=== PATIENT | female | born 1950 | race Caucasian/White ===

== ENCOUNTER → 2018-06-29 10:45 | Outpatient (CLI) | payer OTHER, SELFPAY ==
--- NOTE | 2018-06-29 | DI.MG.S_ITS ---
BILATERAL DIGITAL SCREENING MAMMOGRAM 3D/2D WITH CAD: 06/29/2018 CLINICAL: Routine screening. Comparison is made to exams dated: 07/09/2016 mammogram, 03/16/2014 mammogram, and 07/06/2012 mammogram - [facility]. There are scattered fibroglandular elements in both breasts. Current study was also evaluated with a Computer Aided Detection (CAD) system. No significant masses, calcifications, or other findings are seen in either breast. There has been no significant interval change. IMPRESSION: NEGATIVE There is no mammographic evidence of malignancy. A 1 year screening mammogram is recommended.(06/30/2019) This exam was interpreted at Station ID: [id number]. NOTE: For mammograms, a report in lay terms will be sent to the patient. Approximately 15% of breast malignancies will not be visualized mammographically. In the management of a palpable breast mass, a negative mammogram must not discourage biopsy of a clinically suspicious lesion. Electronically Signed By: Ryan king/nino:06/29/2018 15:54:14 letter sent: Normal Exam ACR BI-RADS Category 1: Negative 3341F
== END ==
PROVIDERS: PCP Family Medicine; Visit Provider Family Medicine
DX: Z12.31 Encounter for screening mammogram for malignant neoplasm of breast (principal)
CPT/HCPCS: 77063; 77067

== ENCOUNTER → 2019-07-01 12:52 | Outpatient (CLI) | payer OTHER, SELFPAY ==
--- NOTE | 2019-07-01 | DI.RAD.S_ITS ---
PROCEDURE: XR CHEST 2V INDICATIONS: COUGH TECHNIQUE: 2 views of the chest were acquired. COMPARISON: [facility], , XR CXR 2 VIEW, 10/18/2003, 8:06. FINDINGS: Surgical changes and devices: None. Lungs and pleura: Lungs are clear. No pleural effusions or pneumothorax. Mediastinum: Mediastinal contours are normal. Heart size is normal. Tortuous and mildly aneurysmal aorta measuring 3.2 cm in AP dimension. Bones and chest wall: No suspicious bony abnormalities. Soft tissues appear unremarkable. IMPRESSION: 1. No acute cardiopulmonary disease. 2. Tortuous aorta with mild aneurysm. Dictated by: Zachary Agarwal M.D. on 07/01/2019 at 17:56 Approved by: Zachary Agarwal M.D. on 07/01/2019 at 17:57
== END ==
PROVIDERS: PCP Family Medicine; Referring Provider Naturopath; Visit Provider Family Medicine
DX: R05 Cough (principal); I71.2 Thoracic aortic aneurysm, without rupture
CPT/HCPCS: 71046

== ENCOUNTER → 2020-02-08 07:59 | Outpatient (CLI) | payer OTHER, SELFPAY ==
[2020-02-08 09:00] LABS: Add Manual Diff / Slide Review NO; Basophils Absolute Auto 0 /uL (0-100); Basophils Percent Auto 0.3 % (0-2); Eosinophils Absolute Auto 100 /uL (0-450); Eosinophils Percent Auto 2.9 % (2-4); Hematocrit 35.2 % (36-46); Hemoglobin 12.4 g/dL (12.0-16.0); Lymphocytes Absolute Auto 1600 /uL (1100-4500); Lymphocytes Percent Auto 43.1 % (25-40); Mean Corpuscular HGB Conc 35.1 % (30-36); Mean Corpuscular Hemoglobin 37.6 PG (26-34); Mean Corpuscular Volume 107.2 fL (80-100); Monocytes Absolute Auto 200 /uL (0-900); Monocytes Percent Auto 6.1 % (3-14); Neutrophils Absolute Auto 1800 /uL (1500-7000); Neutrophils Percent Auto 47.6 % (50-75); Platelet Count 219 X10^3/uL (150-400); Red Blood Cell Count 3.29 X10^6/uL (4.0-5.2); White Blood Cell Count 3.8 X10^3/uL (4.5-11.0)
[2020-02-08 09:07] LABS: Hemoglobin A1C% w Est Avg Glu 5.1 % (4.0-6.0)
[2020-02-08 09:12] LABS: Alanine Aminotransferase 15 IU/L (<35); Albumin 4.2 g/dL (3.5-5.0); Albumin Globulin Ratio 1.6 (1.0-2.8); Alkaline Phosphatase 64 U/L (38-126); Aspartate Aminotransferase 25 IU/L (14-36); BUN Creatinine Ratio 19.7 (6-22); Bilirubin Total 0.9 mg/dL (0.2-1.3); Blood Urea Nitrogen 14 mg/dL (7-17); Calcium 8.9 mg/dL (8.4-10.2); Carbon Dioxide 25 mmol/L (22-32); Chloride 105 mmol/L (98-107); Cholesterol 202 mg/dL (140-199); Estimated Glomerular Filt Rate > 60.0 mL/min (>60); Globulin 2.7 g/dL (1.7-4.1); Glucose 89 mg/dL (80-110); HDL Cholesterol 56 mg/dL (40-60); HEMOLYSIS < 15 (0-50); LDL Cholesterol Calculated 132 mg/dL (<100); Potassium 3.8 mmol/L (3.4-5.1); Sodium 139 mmol/L (137-145); Total Protein 6.9 g/dL (6.3-8.2); Triglycerides 70 mg/dL (35-150); VLDL Cholesterol Calculated 14 mg/dL (2-30)
[2020-02-08 09:44] LABS: TSH w/ Reflex to FT4 2.79 uIU/mL (0.47-4.68)
== END ==
PROVIDERS: PCP Family Medicine; Referring Provider Ophthalmology; Visit Provider Ophthalmology
DX: Z13.1 Encounter for screening for diabetes mellitus (principal); Z13.29 Encounter for screening for other suspected endocrine disorder; E78.5 Hyperlipidemia, unspecified; I71.4 Abdominal aortic aneurysm, without rupture
CPT/HCPCS: 36415; 80053; 80061; 83036; 84443; 85025

== ENCOUNTER → 2020-10-19 14:31 | Outpatient (CLI) | payer OTHER, SELFPAY ==
--- NOTE | 2020-10-19 | DI.MG.S_ITS ---
BILATERAL DIGITAL SCREENING MAMMOGRAM 3D/2D WITH CAD: 10/19/2020 CLINICAL: Routine screening. Comparison is made to exams dated: 06/29/2018 mammogram, 07/09/2016 mammogram, and 03/16/2014 mammogram - [facility]. Current study was also evaluated with a Computer Aided Detection (CAD) system. There is a stable benign calcification in both breasts. No significant masses, calcifications, or other findings are seen in either breast. There has been no significant interval change. IMPRESSION: BENIGN There is no mammographic evidence of malignancy. A 1 year screening mammogram is recommended. This exam was interpreted at Station ID: [id number]. NOTE: For mammograms, a report in lay terms will be sent to the patient. Approximately 15% of breast malignancies will not be visualized mammographically. In the management of a palpable breast mass, a negative mammogram must not discourage biopsy of a clinically suspicious lesion. Electronically Signed By: Kareem Plaza acr/nino:10/19/2020 14:53:07 letter sent: Normal Exam ACR BI-RADS Category 2: Benign Finding(s) 3342F
== END ==
PROVIDERS: PCP Student in an Organized Health Care Education/Training Program; Referring Provider Student in an Organized Health Care Education/Training Program; Visit Provider Ophthalmology
DX: Z12.31 Encounter for screening mammogram for malignant neoplasm of breast (principal)
CPT/HCPCS: 77063; 77067

== ENCOUNTER 2021-11-28 00:46 | Emergency (ER) | payer MEDICARE, SELFPAY ==
--- NOTE | 2021-11-28 00:49 | ED_ITS ---
HPI - Chest Pain General Chief Complaint: Chest Pain Stated Complaint: CHEST PAIN AND PAIN IN BACK Time Seen by Provider: 11/28/21 00:48 History of Present Illness HPI narrative: 71F nonsmoker with noncontributory medical history presents with her in the chief complaint of chest and back pain over the past 2 days. She has never had any discomfort such as this and is quite concerning for her. She denies any obvious provocation. She denies associated symptoms such as dizziness, weakness or lightheadedness. She denies nausea, vomiting or unexplained diaphoresis. She states that she has been working excessively in the garden is been also undergoing vigorous physical therapy. She denies any obvious worsening with range of motion or palpation but does state that symptoms improved tremendously yesterday after applying a topical cream. Her symptoms flared up again this evening and she presents for evaluation Related Data Allergies Allergy/AdvReac Type Severity Reaction Status Date / Time Penicillins [PENICILLINS] Allergy Severe SOB Unverified 11/28/21 00:57 Review of Systems Review of Systems Narrative: GENERAL: Denies chills, fatigue, malaise, fever, sweats. HEENT: Denies sinus pain, ear pain, sore throat, difficulty swallowing, dizziness. RESPIRATORY: Denies dyspnea, cough, wheezing, hemoptysis, sputum. CARDIOVASCULAR: See HPI GASTROINTESTINAL: Denies nausea, vomiting, abdominal pain, diarrhea, constipation, melena. : Denies dysuria, frequency, incontinence, hematuria, urinary retention. MUSCULOSKELETAL:see HPI SKIN: Denies rash, skin lesions, or other NEUROLOGIC: Denies weakness, headache, numbness, change in speech, confusion, seizures, incoordination. PSYCHIATRIC: No concerning psychosocial issues. 12 point review of systems is negative except for those stated above Patient History Social History Smoking Status: Never smoker Exam Narrative Exam Narrative: GENERAL: [71 year old patient appears stated age. Well-developed patient, in mild distress. HEAD: Atraumatic. Normocephalic. EYES: Pupils equal round and reactive. Extraocular motions intact. No scleral icterus. No injection or drainage. ENT: Nose without bleeding, purulent drainage. Throat without erythema, tonsillar hypertrophy or exudate. Airway patent. NECK: Trachea midline. Non tender CARDIOVASCULAR: Regular rate and rhythm without murmurs, gallops, or rubs. RESPIRATORY: Clear to auscultation. Breath sounds equal bilaterally. No wheezes, rales, or rhonchi. GASTROINTESTINAL: Abdomen soft, non-tender, nondistended. EXTREMITIES: No edema or joint tenderness. BACK: Nontender without deformity or crepitance. No flank tenderness. NEURO: AOx3. SKIN: No rash or erythema of visible areas Initial Vital Signs Initial Vital Signs: Vital Signs Temperature 97 F L 11/28/21 00:54 Pulse Rate 95 H 11/28/21 00:54 Respiratory Rate 16 11/28/21 00:54 Blood Pressure 201/103 H 11/28/21 00:54 Pulse Oximetry 98 11/28/21 00:54 Course Course Course Narrative: Patient has chest and back pain and I have high suspicion of a musculoskeletal component, however it is not necessarily is reproducible on palpation as I might expect. After discussion with patient and her we agree on it advanced imaging in the form of a CT angiogram of chest abdomen and pelvis to evaluate for dissection, aneurysm and other. Orders Ordered: ED Orders 11/28/21 00:51 Complete Blood Count AUTO DIFF Stat Comprehensive Metabolic Panel Stat Lipase Stat Magnesium Stat Troponin & CK Cardiac Panel Stat 11/28/21 00:58 XR chest 1V Stat EKG-12 Lead Stat 11/28/21 01:29 CT angio chest abdomen pelvis Stat Reevaluation(s) Reevaluation #1: Patient does demonstrate significant improvement over the course of the visit without any aggressive interventions. Consultations Consultation #1: Upon receipt of imaging I discussed with on-call vascular surgery at [facility]. He has reviewed the patient's history, physical exam as well as labs and images himself. He states very firmly that any of the abnormal findings on the imaging are not the likely cause of the patient's symptoms and do not require any specific intervention. He does state that it would be reasonable to repeat vascular imaging in 1-2 years to track the progression of abnormal findings noted. Vital Signs Vital signs: Vital Signs - 8 hr 11/28/21 00:54 11/28/21 03:40 Temperature 97 F L Pulse Rate 95 H 72 Respiratory Rate 16 15 Blood Pressure 201/103 H 150/75 H Pulse Oximetry 98 97 MDM - Chest Pain Lab Data Result diagrams: 11/28/21 00:51 11/28/21 00:51 Labs: Lab Results 11/28/21 11/28/21 Range/Units 00:51 00:51 WBC 6.4 (4.5-11.0) X10^3/uL RBC 4.86 (4.0-5.2) X10^6/uL Hgb 14.2 (12.0-16.0) g/dL Hct 43.5 (36-46) % MCV 89.4 (80-100) fL MCH 29.2 (26-34) PG MCHC 32.6 (30-36) % RDW 13.0 (11.6-14.8) % Plt Count 268 (150-400) X10^3/uL Neut % (Auto) 47.9 L (50-75) % Lymph % (Auto) 42.2 H (25-40) % [place] % (Auto) 6.5 (3-14) % Eos % (Auto) 2.9 (2-4) % Baso % (Auto) 0.5 (0-2) % Neut # (Auto) 3100 (6046-6637) /uL Lymph # (Auto) 2700 (8395-7998) /uL [place] # (Auto) 400 (0-900) /uL Eos # (Auto) 200 (0-450) /uL Baso # (Auto) 0 (0-100) /uL Sodium 139 (137-145) mmol/L Potassium 3.8 (3.4-5.1) mmol/L Chloride 107 (98-107) mmol/L Carbon Dioxide 28 (22-32) mmol/L BUN 12 (7-17) mg/dL Creatinine 0.70 (0.52-1.04) mg/dL Estimated GFR > 60.0 (>60) mL/min BUN/Creatinine Ratio 17.1 (6-22) Glucose 119 H (80-110) mg/dL Calcium 9.4 (8.4-10.2) mg/dL Magnesium 2.1 (1.6-2.3) mg/dL Total Bilirubin 0.4 (0.2-1.3) mg/dL AST 25 (14-36) IU/L ALT 16 (<35) IU/L Alkaline Phosphatase 75 (38-126) U/L Total Creatine Kinase 167 H (30-135) U/L CK-MB (CK-2) 1.58 (<2.37) ng/mL CK-MB (CK-2) Rel Index 0.9 L (1.5-5.0) % Troponin I < 0.012 (0.01-0.034) ng/mL Total Protein 7.8 (6.3-8.2) g/dL Albumin 4.6 (3.5-5.0) g/dL Globulin 3.2 (1.7-4.1) g/dL Albumin/Globulin Ratio 1.4 (1.0-2.8) Lipase 175 (23-300) U/L Imaging Data CT scan - chest: Radiologist's Impression: [address] [address] [address] Scan Report Signed Patient: Kristel Suárez MR#: [id number] : 1950 Acct:[id number] Age/Sex: 71 / F Date of Service: 11/28/21 Loc: ED Accession Number: [id number] ?? Procedure: CT angio chest abdomen pelvis Ordering Provider: Terrance Joy D.O. PROCEDURE:? CT ANGIO CHEST ABDOMEN PELVIS ? INDICATIONS:? chest pain, back pain, hypertension ? TECHNIQUE:? Precontrast 5 mm thick sections acquired from the lung apices to the iliac crests.? After the administration of intravenous contrast, 2.5 mm thick sections again acquired from the lung apices to the iliac crests.? Maximum intensity projection (MIP) oblique sagittal and coronal reformats were then acquired.? For radiation dose reduction, the following was used:? automated exposure control.? ? COMPARISON:? None. ? FINDINGS:? Image quality:? Excellent.? ? VASCULATURE:? The heart is normal in size.? The main pulmonary trunk and right pulmonary artery normal in size.? The left pulmonary artery is enlarged, measuring 2.8 cm in diameter.? No filling defect is seen within the pulmonary vasculature.? The ascending thoracic aorta and proximal aortic arch are normal in size.? A conventional branching pattern of the arch vessels is noted.? 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 The diverticulum measures 13 x 13 x 16 mm.? The descending thoracic aorta is patent with mild atherosclerotic calcifications.? No aortic dissection or intramural hematoma.? No penetrating atherosclerotic ulcer. ? Mild calcified atherosclerosis is seen in the abdominal aorta.? No aortic aneurysm is seen.? The celiac trunk and superior mesenteric artery are patent.? Atherosclerotic calcifications are seen at the origins of the inferior mesenteric artery and bilateral renal arteries without significant stenosis seen.? An accessory right renal artery is noted.? A peripherally calcified distal splenic artery aneurysm is seen measuring approximately 1.0 x 0.9 x 0.6 cm. ? Mild atherosclerotic disease is seen involving the common and internal iliac arteries bilaterally.? The external iliac arteries are patent bilaterally.? The bilateral proximal femoral arteries are patent. ? CHEST:? Lungs and pleura:? No acute airspace opacities.? No pleural effusions or pneumothorax.? Central and peripheral airways are patent and normal in caliber.? ? Mediastinum:? Heart size is normal.? No pericardial effusion.? No mediastinal or hilar adenopathy by size criteria.? Central pulmonary arteries are normal in size.? Esophagus is normal in caliber.? No hiatal hernias.? ? Bones and chest wall:? No axillary adenopathy by size criteria.? Thyroid is unr emarkable. ?No suspicious bony lesions.? No vertebral body compression fractures.? ? ? ABDOMEN:? Solid organs:? Liver is normal in size and enhancement.? Gallbladder contains a tiny calcified gallstone.? Biliary system is non dilated.? Pancreas enhances normally.? Spleen is normal in size and enhancement.? No adrenal nodules.? Both kidneys are normal in size and enhancement, without hydronephrosis.? ? Peritoneum and bowel:? No free fluid or air.? A few diverticula are seen in the colon without signs of acute diverticulitis.? Bowel loops are normal in caliber and wall thickness.? ? Nodes and vessels:? No retroperitoneal or mesenteric adenopathy by size criteria.? Inferior vena cava is normal in morphology.? ? Miscellaneous:? No ventral hernias.? ? ? PELVIS:? Genitourinary:? Bladder wall thickness is normal.? ? Miscellaneous:? No inguinal hernias or adenopathy.? No ventral hernias.? ? Bones:? No suspicious bony lesions.? No vertebral body compression fractures.? There is mild S-shaped curvature of the spine. ? ? IMPRESSION:? 1. No acute aortic dissection, intramural hematoma, or penetrating ulcer.? No acute abnormality is seen in the chest, abdomen, or pelvis. 2. 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 3. 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 4. 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 ? ? Dictated by: Spike Tavares M.D. on 11/28/2021 at 1:55 ? ? Approved by: Spike Tavares M.D. on 11/28/2021 at 2:11 ? Discharge Plan Departure Patient Disposition: Home Clinical Impression: Thoracic myofascial strain, Atypical chest pain Instructions: DI for Atypical Chest Pain Activity Restrictions/Additional Instructions: *You have been diagnosed with [thoracic pain and atypical chest pain. As we discussed, you are very reassuring history, physical exam, labs, EKG and imaging. There is no evidence of heart attack, pulmonary embolism, aortic dissection, gallbladder disease or other severe or life-threatening illness that would require a specific or immediate intervention. *What to do: *Please continue to take your regular medications as directed. [ ] New medication prescriptions sent to your pharmacy: [ ] [ ] New medication written as a paper prescription [x ] No new medications given *Please follow up with your primary care provider in 2-3 days, call for an appointment. Let them know you were seen in the Emergency Department and that we ask that you be seen in follow up. We will electronically transmit a record of today's note if your PCP is in our system *If you do not have a primary care provider please contact the [facility] Resource line at [phone]. They will ask some questions about your medical history and help get you set up with a doctor in the community. *Return to Emergency Department if you should have any new, worsening or concerning symptoms, such as [fever greater than 101 F, shaking chills, worsening pain, persistent vomiting or other bothersome symptoms] Referrals: Ady Dow, DO [Primary Care Provider] -
[2021-11-28 00:54] VITALS: BP 201/103; PULSE 95; RESP 16; TEMP 36.1; O2SAT 98; BMI 26.1
--- NOTE | 2021-11-28 00:58 | DI.RAD.S_ITS ---
PROCEDURE: XR CHEST 1V INDICATIONS: chest pain TECHNIQUE: One view of the chest was acquired. COMPARISON: [facility], CR, XR CHEST 2V, 07/01/2019, 13:52. FINDINGS: Surgical changes and devices: None. Lungs and pleura: Lungs are clear. No pleural effusions or pneumothorax. Mediastinum: Aortic tortuosity and atherosclerotic calcifications. Normal cardiac silhouette size. Bones and chest wall: No suspicious bony lesions. Overlying soft tissues appear unremarkable. IMPRESSION: No acute cardiopulmonary abnormality. Dictated by: Spike Tavares M.D. on 11/28/2021 at 1:29 Approved by: Spike Tavares M.D. on 11/28/2021 at 1:29
[2021-11-28 01:07] LABS: Add Manual Diff / Slide Review NO; Basophils Absolute Auto 0 /uL (0-100); Basophils Percent Auto 0.5 % (0-2); Eosinophils Absolute Auto 200 /uL (0-450); Eosinophils Percent Auto 2.9 % (2-4); Hematocrit 43.5 % (36-46); Hemoglobin 14.2 g/dL (12.0-16.0); Lymphocytes Absolute Auto 2700 /uL (1100-4500); Lymphocytes Percent Auto 42.2 % (25-40); Mean Corpuscular HGB Conc 32.6 % (30-36); Mean Corpuscular Hemoglobin 29.2 PG (26-34); Mean Corpuscular Volume 89.4 fL (80-100); Monocytes Absolute Auto 400 /uL (0-900); Monocytes Percent Auto 6.5 % (3-14); Neutrophils Absolute Auto 3100 /uL (1500-7000); Neutrophils Percent Auto 47.9 % (50-75); Platelet Count 268 X10^3/uL (150-400); Red Blood Cell Count 4.86 X10^6/uL (4.0-5.2); White Blood Cell Count 6.4 X10^3/uL (4.5-11.0)
[2021-11-28 01:14] LABS: Alanine Aminotransferase 16 IU/L (<35); Albumin 4.6 g/dL (3.5-5.0); Albumin Globulin Ratio 1.4 (1.0-2.8); Alkaline Phosphatase 75 U/L (38-126); Aspartate Aminotransferase 25 IU/L (14-36); BUN Creatinine Ratio 17.1 (6-22); Bilirubin Total 0.4 mg/dL (0.2-1.3); Blood Urea Nitrogen 12 mg/dL (7-17); Calcium 9.4 mg/dL (8.4-10.2); Carbon Dioxide 28 mmol/L (22-32); Chloride 107 mmol/L (98-107); Creatine Kinase 167 U/L (30-135); Estimated Glomerular Filt Rate > 60.0 mL/min (>60); Globulin 3.2 g/dL (1.7-4.1); Glucose 119 mg/dL (80-110); HEMOLYSIS < 15 (0-50); Lipase 175 U/L (23-300); Magnesium 2.1 mg/dL (1.6-2.3); Potassium 3.8 mmol/L (3.4-5.1); Sodium 139 mmol/L (137-145); Total Protein 7.8 g/dL (6.3-8.2)
[2021-11-28 01:25] LABS: Troponin I < 0.012 ng/mL (0.01-0.034)
[2021-11-28 01:28] LABS: CKMB % Relative Index 0.9 % (1.5-5.0); Creatine Kinase MB 1.58 ng/mL (<2.37)
--- NOTE | 2021-11-28 01:29 | DI.CT.S_ITS ---
PROCEDURE: CT ANGIO CHEST ABDOMEN PELVIS INDICATIONS: chest pain, back pain, hypertension TECHNIQUE: Precontrast 5 mm thick sections acquired from the lung apices to the iliac crests. After the administration of intravenous contrast, 2.5 mm thick sections again acquired from the lung apices to the iliac crests. Maximum intensity projection (MIP) oblique sagittal and coronal reformats were then acquired. For radiation dose reduction, the following was used: automated exposure control. COMPARISON: None. FINDINGS: Image quality: Excellent. VASCULATURE: The heart is normal in size. The main pulmonary trunk and right pulmonary artery normal in size. The left pulmonary artery is enlarged, measuring 2.8 cm in diameter. No filling defect is seen within the pulmonary vasculature. The ascending thoracic aorta and proximal aortic arch are normal in size. A conventional branching pattern of the arch vessels is noted. 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 The diverticulum measures 13 x 13 x 16 mm. The descending thoracic aorta is patent with mild atherosclerotic calcifications. No aortic dissection or intramural hematoma. No penetrating atherosclerotic ulcer. Mild calcified atherosclerosis is seen in the abdominal aorta. No aortic aneurysm is seen. The celiac trunk and superior mesenteric artery are patent. Atherosclerotic calcifications are seen at the origins of the inferior mesenteric artery and bilateral renal arteries without significant stenosis seen. An accessory right renal artery is noted. A peripherally calcified distal splenic artery aneurysm is seen measuring approximately 1.0 x 0.9 x 0.6 cm. Mild atherosclerotic disease is seen involving the common and internal iliac arteries bilaterally. The external iliac arteries are patent bilaterally. The bilateral proximal femoral arteries are patent. CHEST: Lungs and pleura: No acute airspace opacities. No pleural effusions or pneumothorax. Central and peripheral airways are patent and normal in caliber. Mediastinum: Heart size is normal. No pericardial effusion. No mediastinal or hilar adenopathy by size criteria. Central pulmonary arteries are normal in size. Esophagus is normal in caliber. No hiatal hernias. Bones and chest wall: No axillary adenopathy by size criteria. Thyroid is unremarkable. No suspicious bony lesions. No vertebral body compression fractures. ABDOMEN: Solid organs: Liver is normal in size and enhancement. Gallbladder contains a tiny calcified gallstone. Biliary system is non dilated. Pancreas enhances normally. Spleen is normal in size and enhancement. No adrenal nodules. Both kidneys are normal in size and enhancement, without hydronephrosis. Peritoneum and bowel: No free fluid or air. A few diverticula are seen in the colon without signs of acute diverticulitis. Bowel loops are normal in caliber and wall thickness. Nodes and vessels: No retroperitoneal or mesenteric adenopathy by size criteria. Inferior vena cava is normal in morphology. Miscellaneous: No ventral hernias. PELVIS: Genitourinary: Bladder wall thickness is normal. Miscellaneous: No inguinal hernias or adenopathy. No ventral hernias. Bones: No suspicious bony lesions. No vertebral body compression fractures. There is mild S-shaped curvature of the spine. IMPRESSION: 1. No acute aortic dissection, intramural hematoma, or penetrating ulcer. No acute abnormality is seen in the chest, abdomen, or pelvis. 2. 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 3. 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 4. 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 Dictated by: Spike Tavares M.D. on 11/28/2021 at 1:55 Approved by: Spike Tavares M.D. on 11/28/2021 at 2:11
[2021-11-28 03:40] VITALS: BP 150/75; PULSE 72; RESP 15; O2SAT 97
== END 2021-11-28 03:41 | disposition home or self-care (01) ==
PROVIDERS: Emergency Provider Emergency Medicine; Family Provider Student in an Organized Health Care Education/Training Program; PCP Student in an Organized Health Care Education/Training Program
DX: S29.012A Strain of muscle and tendon of back wall of thorax, initial encounter (principal); R07.89 Other chest pain; X58.XXXA Exposure to other specified factors, initial encounter
CPT/HCPCS: 36415; 71045; 71275; 74174; 80053; 82550; 82553; 83690; 83735; 84484; 85025; 93005; 93010; 99283; 99284; Q9967

== ENCOUNTER 2022-01-14 10:30 | Outpatient (RCR) | payer MEDICARE, SELFPAY ==
--- NOTE | 2021-10-17 19:36 | PT.OIE ---
Current Diagnoses Sciatica, right side (10/17/21) Myalgia, other site (10/17/21) Difficulty in walking, not elsewhere classified (10/17/21) Abnormal posture (10/17/21) Weakness (10/17/21) Visit Care Team Role Provider Type Ady Dow DO Attending Provider Non-Staff Family Provider Primary Care Provider Referring Provider Specialty: Medical Address: [address] [place] [address] [address], [place], [address] Email: Physical Therapy Initial Evaluation PT-OP-A Visit Information Start: 10/16/21 17:39 Freq: Status: Active Protocol: Document 10/17/21 11:19 [facility] (Rec: 10/17/21 12:22 [facility] [id number]) Out-Patient Physical Therapy Visit Information Visit Information Visit Type Initial Evaluation Visit Note 09/30 Visit Start Time 11:19 Visit Stop Time 12:15 Total Visit Minutes 56 Visit Number 1 Number of [employer] ACQUISITIONS ASSOCIATE Visits 0 PT-OP-B Current Condition Start: 10/16/21 17:39 Freq: Status: Active Protocol: Document 10/17/21 11:19 [facility] (Rec: 10/17/21 12:22 [facility] [id number]) Current Condition History of Current Condition Onset Date early Aug worsening Current Complaints R hip History of Current Condition Pt reports her R hip has bothered her at a low level for a long time. She was doing pilates for 3 years before [facility] and the instructor could always help her fix it, but LUIS ENRIQUEID stopped pilates lessons. THis summer, she had tripped and fell landing on her hip. Notes she was riding ehr bike and she saw people ahead of her and paniked and lost her balance and fell on R hip. She did PT for [address] in [facility], but she did not feel like she got the specific instructions for the exercises. She feels like she got too ambitious w/walking and has had a set back. She has noticed walking up the stairs carrying about anything , the R hip will hurt. Pt reports she gets pain in lat R krueger and ant hip mostly along w/post. Pt reports after sitting, she is is stiff when trying to walk for first 10 steps. She thinks some of inc in pain is d/t lack of aerobic activity. Notes she has found posture is very important and she experiences less pain. She has been doing some exercises for hips (notes it is mostly back stuff). She says they feel good. Pt reports if she stands for 1.5 hours in the kitchen then she gets back pain but she can improve it with standing linnea pose. Pt reports hip gets frozen and lhas to stop very 1.[address]. Denies numbness or tingling. Pt reports she is doing very little walking. Yesterday, she walked into the post office then 1.5 blocks to a store then back to the car. She walked very mindfully ( watching posture & gait) and it really slows her down but hasn't been walking much. Pt has done [place] ( [place] .75 miles) and she had more achiness and calf twangs. It felt better once she sat in the car. She can feel like her leg is just a little more tender after. 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 from Xrays taken Treatment Goals Patient/Caregiver Goals Be able to walk up to 5 miles and do hills, be able to ride her bike, be able to cross country ski PT-OP-C Subjective Start: 10/16/21 17:39 Freq: Status: Active Protocol: Document 10/17/21 11:19 [facility] (Rec: 10/17/21 12:22 [facility] [id number]) Patient Questionnaires Oswestry Low Back Index Oswestry Score 6/50 OP-PT Pain Assessment Location R hip pain Pain Location Details ant and post hip Intensity 6 Scale Used Numeric (0 - 10) Frequency Intermittent Variations/Patterns krueger (walking & standing, initiation of movement), back (standing) Pain Aggravating Factors Standing,Walking Other Pain Aggravating Factors transition out of chair Pain Alleviating Factors Cold,Medication,Sitting, Exercise Other Pain Alleviating Factors ibuprofen 1x in AM PT-OP-D Balance Start: 10/16/21 17:39 Freq: Status: Active Protocol: Document 10/17/21 11:19 [facility] (Rec: 10/17/21 12:22 [facility] [id number]) Balance Tests Single Limb Standing Single Limb- Right 1 sec Single Limb- Left 1 sec PT-OP-F Manual Assessment Start: 10/16/21 17:39 Freq: Status: Active Protocol: Document 10/17/21 11:19 [facility] (Rec: 10/17/21 12:22 [facility] [id number]) Manual Assessments Joint Mobility Assessment Joint Mobility Assessment R slightly higher iliac crest, equal greater trochanter PT-OP-G Mobility & Gait Start: 10/16/21 17:39 Freq: Status: Active Protocol: Document 10/17/21 11:19 [facility] (Rec: 10/17/21 12:22 [facility] [id number]) OP Gait Assessment Comments Gait Comments Pt significant L hip drop when WB on R w/very stiff movement and dec WB time on RLE and dec push off B PT-OP-J Posture/Palpation/Skin Start: 10/16/21 17:39 Freq: Status: Active Protocol: Document 10/17/21 11:19 [facility] (Rec: 10/17/21 12:22 [facility] [id number]) Posture Evaluation [facility] Postural Classification System [facility] Postural Classifications Posterior/Anterior Vertebral Compression Test 1 Lumbar Protective Mechanism Left AP 0 Lumbar Protective Mechanism Right AP 0 Lumbar Protective Mechanism Left PA 0 Lumbar Protective Mechanism Right PA 0 Comments Posture Comments L foot pronation, IR B femurs, R shoulder lower, SB R, R hip shear PT-OP-L Special Tests Start: 10/16/21 17:39 Freq: Status: Active Protocol: Document 10/17/21 11:19 [facility] (Rec: 10/17/21 12:22 [facility] [id number]) Special Tests Lumbar Spine Special Tests Slump Test Results positive R Straight Leg Raise Test Results positive R PT-OP-M Strength Start: 10/16/21 17:39 Freq: Status: Active Protocol: Document 10/17/21 11:19 [facility] (Rec: 10/17/21 12:22 [facility] [id number]) Hip Strength Hip Manual Muscle Testing Right Flexion (L2) 3+ Fair+ Extension (S1) 3+ Fair+ Abduction 3+ Fair+ Adduction 3+ Fair+ External Rotation 3+ Fair+ Internal Rotation 3+ Fair+ Comments tingly in R foot w/add; pain w /ext Left Flexion (L2) 3+ Fair+ Abduction 3+ Fair+ Adduction 4 Good External Rotation 3+ Fair+ Internal Rotation 3+ Fair+ Knee Strength Knee Manual Muscle Testing Right Flexion (S2) 4+ Good+ Extension (L3) 4+ Good+ Left Flexion (S2) 4+ Good+ Extension (L3) 4+ Good+ Ankle/Foot Strength Ankle and Foot Manual Muscle Testing Right Dorsiflexion (L4) 4+ Good+ Plantarflexion (S1) 5 Normal Comments can do 20 heel raises but twang in R lat thigh and calf Left Dorsiflexion (L4) 4+ Good+ Plantarflexion (S1) 4- Good- Comments 12 heel raises stop d/t weakness PT-OP-Q Treatments Start: 10/16/21 17:39 Freq: Status: Active Protocol: Document 10/17/21 11:19 [facility] (Rec: 10/17/21 19:28 [facility] [id number]) Self-Care/Home Management Treatment Education Other Education edu to pt on anatomy of sciatic n. Edu on how scolosis could be affecting this condition, discussed gait pattern and how that is not efficient. Edu to do only small walks that do not make her pain worse or feel like she has pain later. Discussed not taking ibuprofen to prepare for sessions unless she needs it as we do not want to overdo in sessions. PT-OP-T Assessment and Plan Start: 10/16/21 17:39 Freq: Status: Active Protocol: Document 10/17/21 11:19 [facility] (Rec: 10/17/21 12:22 [facility] [id number]) Physical Therapy Assessment Rehab Potential Rehabilitation Potential Good Evaluation Complexity Number of Personal Factors/Comorbidities 1-2 Number of Body Systems Impaired 4 or More Clinical Presentation at Evaluation Evolving Impairments Impairments Activity Tolerance,Balance, Functional Activities, Functional Mobility,Gait,Pain, Posture,ROM,Soft Tissue Mobility,Strength Goals skiing [facility] Goal (LTG) Pt will be able to return to cross country skiing and biking w/o inc pain. LTG Duration 12/15/21 transitions Cross Country And Track And Field Coach Goal (LTG) Pt will be able to do sit to stand from chair w/o inc hip pain intially. LTG Duration 12/15/21 walking Short Term Goal (STG) Pt will be able to walk at least 1.5 mile w/o inc pain greater than 2/10. STG Duration 11/17/21 Cross Country And Track And Field Coach Goal (LTG) Pt will be able to go for longer walks w/hills w/o inc pain greater than 2/10 LTG Duration 12/15/21 strength Short Term Goal (STG) Pt will be indep w/HEP STG Duration 11/17/21 [facility] Goal (LTG) Pt will score at least 5/5 B on LE strength tests and 3/5 on LPM in all planes to imrpove hip and core stability in order to improve pt's ability to remain active w/o pain. LTG Duration 12/15/21 balance Short Term Goal (STG) Pt will be able to do SLS for 5 sec B to show improved balance. STG Duration 11/17/21 Cross Country And Track And Field Coach Goal (LTG) Pt will be able to do SLS 10 sec B w/o lat hip shear or opposite hip drop to show improved balance. LTG Duration 12/15/21 Assessment Summary Assessment Pt presents w/chronic R hip pain w/radiating pain into RLE to lat leg. She has been unable to walk as she typically would d/t this pain getting worse recently. She has pain with extended time in WB and when first getting up when she has been sitting for an extended time. She has had mult injuries that likely have contributed to this pain and has scoliosis which likely affects her pelvis positioning . She has poor core stability, impaired gait mechanics, dec hip stability and poor balance . She would benefit from skilled PT to return her to her typical active lifestyle. Physical Therapy Plan Frequency and Duration Frequency of Treatment 2x/Week Duration of Treatment 2 months Plan of Care Start Date 10/17/21 Plan of Care End Date 12/15/21 Therapeutic Interventions Therapeutic Interventions Aquatic Therapy,Balance Training,Gait Training,Home Exercise Program,Joint Mobilizations,Manual Therapy, Neuromuscular Re-education, Patient/Caregiver Education, Self-Care/Home Management,Soft Tissue Mobilization,Taping, Therapeutic Activities, Therapeutic Exercises Modalities Cold Pack/Ice Massage,Electric Stimulation,Hot Packs, Infrared Therapy,Ultrasound Next Visit Focus/Plan Next Note Type Treatment Note Next Visit Plan supine core exercise progression, hip mobilizations , STM to hip, Hip stretches, sciatic n glide, wall posture exercise for HEP
--- NOTE | 2021-10-17 19:36 | PT.OPPOC ---
Physical, Occupational & Speech Therapy At [facility] Current Diagnoses Sciatica, right side (10/17/21) Myalgia, other site (10/17/21) Difficulty in walking, not elsewhere classified (10/17/21) Abnormal posture (10/17/21) Weakness (10/17/21) Visit Care Team Role Provider Type Ady Dow DO Attending Provider Non-Staff Family Provider Primary Care Provider Referring Provider Specialty: Medical Address: [address] [place] [address] [address], [place], [address] Email: Plan Of Care PT-OP-T Assessment and Plan Start: 10/16/21 17:39 Freq: Status: Active Protocol: Document 10/17/21 11:19 [facility] (Rec: 10/17/21 12:22 [facility] [id number]) Physical Therapy Assessment Rehab Potential Rehabilitation Potential Good Evaluation Complexity Number of Personal Factors/Comorbidities 1-2 Number of Body Systems Impaired 4 or More Clinical Presentation at Evaluation Evolving Impairments Impairments Activity Tolerance,Balance, Functional Activities, Functional Mobility,Gait,Pain, Posture,ROM,Soft Tissue Mobility,Strength Goals skiing Residential Goal (LTG) Pt will be able to return to cross country skiing and biking w/o inc pain. LTG Duration 12/15/21 transitions Corporate Sales Manager Goal (LTG) Pt will be able to do sit to stand from chair w/o inc hip pain intially. LTG Duration 12/15/21 walking Short Term Goal (STG) Pt will be able to walk at least 1.5 mile w/o inc pain greater than 2/10. STG Duration 11/17/21 Residential Goal (LTG) Pt will be able to go for longer walks w/hills w/o inc pain greater than 2/10 LTG Duration 12/15/21 strength Short Term Goal (STG) Pt will be indep w/HEP STG Duration 11/17/21 Residential Goal (LTG) Pt will score at least 5/5 B on LE strength tests and 3/5 on LPM in all planes to imrpove hip and core stability in order to improve pt's ability to remain active w/o pain. LTG Duration 12/15/21 balance Short Term Goal (STG) Pt will be able to do SLS for 5 sec B to show improved balance. STG Duration 11/17/21 Corporate Sales Manager Goal (LTG) Pt will be able to do SLS 10 sec B w/o lat hip shear or opposite hip drop to show improved balance. LTG Duration 12/15/21 Assessment Summary Assessment Pt presents w/chronic R hip pain w/radiating pain into RLE to lat leg. She has been unable to walk as she typically would d/t this pain getting worse recently. She has pain with extended time in WB and when first getting up when she has been sitting for an extended time. She has had mult injuries that likely have contributed to this pain and has scoliosis which likely affects her pelvis positioning . She has poor core stability, impaired gait mechanics, dec hip stability and poor balance . She would benefit from skilled PT to return her to her typical active lifestyle. Physical Therapy Plan Frequency and Duration Frequency of Treatment 2x/Week Duration of Treatment 2 months Plan of Care Start Date 10/17/21 Plan of Care End Date 12/15/21 Therapeutic Interventions Therapeutic Interventions Aquatic Therapy,Balance Training,Gait Training,Home Exercise Program,Joint Mobilizations,Manual Therapy, Neuromuscular Re-education, Patient/Caregiver Education, Self-Care/Home Management,Soft Tissue Mobilization,Taping, Therapeutic Activities, Therapeutic Exercises Modalities Cold Pack/Ice Massage,Electric Stimulation,Hot Packs, Infrared Therapy,Ultrasound Next Visit Focus/Plan Next Note Type Treatment Note Next Visit Plan supine core exercise progression, hip mobilizations , STM to hip, Hip stretches, sciatic n glide, wall posture exercise for HEP Plan of Care Dates Plan of Care Start Date 10/17/21 Plan of Care End Date 12/15/21 Electronically Signed by: Nani Sesay, PT 10/17/21 1936 Please Sign and Return: I have reviewed this Plan of Care and certify that the skilled therapy services above are required to meet the patient?s needs. Physician Signature Date Printed Name and Credentials Clinical Instructor Signature Printed Name and Credentials
--- NOTE | 2021-10-22 13:51 | PT.OTN ---
Current Diagnoses Sciatica, right side (10/22/21) Myalgia, other site (10/22/21) Difficulty in walking, not elsewhere classified (10/22/21) Abnormal posture (10/22/21) Weakness (10/22/21) Physical Therapy Treatment Note PT-OP-A Visit Information Start: 10/16/21 17:39 Freq: Status: Active Protocol: Document 10/22/21 13:02 [facility] (Rec: 10/22/21 13:51 [facility] [id number]) Out-Patient Physical Therapy Visit Information Visit Information Visit Type Treatment Note Visit Note 10/31 Visit Start Time 13:00 Visit Stop Time 13:45 Total Visit Minutes 45 Visit Number 2 Number of ENGINE MECHANIC Visits 0 PT-OP-B Current Condition Start: 10/16/21 17:39 Freq: Status: Active Protocol: Document 10/17/21 11:19 [facility] (Rec: 10/17/21 12:22 [facility] [id number]) Current Condition History of Current Condition Onset Date early Aug worsening Current Complaints R hip History of Current Condition Pt reports her R hip has bothered her at a low level for a long time. She was doing pilates for 3 years before [facility] and the instructor could always help her fix it, but MARCOS stopped pilates lessons. THis summer, she had tripped and fell landing on her hip. Notes she was riding ehr bike and she saw people ahead of her and paniked and lost her balance and fell on R hip. She did PT for 3 sessions at [address] in [facility], but she did not feel like she got the specific instructions for the exercises. She feels like she got too ambitious w/walking and has had a set back. She has noticed walking up the stairs carrying about anything , the R hip will hurt. Pt reports she gets pain in lat R krueger and ant hip mostly along w/post. Pt reports after sitting, she is is stiff when trying to walk for first 10 steps. She thinks some of inc in pain is d/t lack of aerobic activity. Notes she has found posture is very important and she experiences less pain. She has been doing some exercises for hips (notes it is mostly back stuff). She says they feel good. Pt reports if she stands for 1.5 hours in the kitchen then she gets back pain but she can improve it with standing linnea pose. Pt reports hip gets frozen and lhas to stop very 1.5 [address]. Denies numbness or tingling. Pt reports she is doing very little walking. Yesterday, she walked into the post office then 1.5 blocks to a store then back to the car. She walked very mindfully ( watching posture & gait) and it really slows her down but hasn't been walking much. Pt has done the [place] of [place] [address] ( [place] .75 miles) and she had more achiness and calf twangs. It felt better once she sat in the car. She can feel like her leg is just a little more tender after. 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 PT-OP-D Balance Start: 10/16/21 17:39 Freq: Status: Active Protocol: Document 10/17/21 11:19 [facility] (Rec: 10/17/21 12:22 [facility] [id number]) Balance Tests Single Limb Standing Single Limb- Right 1 sec Single Limb- Left 1 sec PT-OP-F Manual Assessment Start: 10/16/21 17:39 Freq: Status: Active Protocol: Document 10/17/21 11:19 [facility] (Rec: 10/17/21 12:22 [facility] [id number]) Manual Assessments Joint Mobility Assessment Joint Mobility Assessment R slightly higher iliac crest, equal greater trochanter PT-OP-G Mobility & Gait Start: 10/16/21 17:39 Freq: Status: Active Protocol: Document 10/17/21 11:19 [facility] (Rec: 10/17/21 12:22 [facility] [id number]) OP Gait Assessment Comments Gait Comments Pt significant L hip drop when WB on R w/very stiff movement and dec WB time on RLE and dec push off B PT-OP-J Posture/Palpation/Skin Start: 10/16/21 17:39 Freq: Status: Active Protocol: Document 10/17/21 11:19 [facility] (Rec: 10/17/21 12:22 [facility] [id number]) Posture Evaluation [facility] Postural Classification System Gurwinder Postural Classifications Posterior/Anterior Vertebral Compression Test 1 Lumbar Protective Mechanism Left AP 0 Lumbar Protective Mechanism Right AP 0 Lumbar Protective Mechanism Left PA 0 Lumbar Protective Mechanism Right PA 0 Comments Posture Comments L foot pronation, IR B femurs, R shoulder lower, SB R, R hip shear PT-OP-L Special Tests Start: 10/16/21 17:39 Freq: Status: Active Protocol: Document 10/17/21 11:19 [facility] (Rec: 10/17/21 12:22 [facility] [id number]) Special Tests Lumbar Spine Special Tests Slump Test Results positive R Straight Leg Raise Test Results positive R PT-OP-M Strength Start: 10/16/21 17:39 Freq: Status: Active Protocol: Document 10/17/21 11:19 [facility] (Rec: 10/17/21 12:22 [facility] [id number]) Hip Strength Hip Manual Muscle Testing Right Flexion (L2) 3+ Fair+ Extension (S1) 3+ Fair+ Abduction 3+ Fair+ Adduction 3+ Fair+ External Rotation 3+ Fair+ Internal Rotation 3+ Fair+ Comments tingly in R foot w/add; pain w /ext Left Flexion (L2) 3+ Fair+ Abduction 3+ Fair+ Adduction 4 Good External Rotation 3+ Fair+ Internal Rotation 3+ Fair+ Knee Strength Knee Manual Muscle Testing Right Flexion (S2) 4+ Good+ Extension (L3) 4+ Good+ Left Flexion (S2) 4+ Good+ Extension (L3) 4+ Good+ Ankle/Foot Strength Ankle and Foot Manual Muscle Testing Right Dorsiflexion (L4) 4+ Good+ Plantarflexion (S1) 5 Normal Comments can do 20 heel raises but twang in R lat thigh and calf Left Dorsiflexion (L4) 4+ Good+ Plantarflexion (S1) 4- Good- Comments 12 heel raises stop d/t weakness PT-OP-Q Treatments Start: 10/16/21 17:39 Freq: Status: Active Protocol: Document 10/22/21 13:02 [facility] (Rec: 10/22/21 13:51 [facility] [id number]) Therapeutic Exercises Supine Exercises stretch Supine Exercise Name 1. figure 4 w/opp knee bent 2. piriformis cross body Side bilateral Reps/Minutes 30 sec ea core Supine Exercise Name november w/core engagement Side bilateral Reps/Minutes 15 Comments max cues for avoiding rotation or lumbar ext off mat pelvic tilt Reps/Minutes 4 bridge Supine Exercise Name w/PT traction for first 8 reps to facilitate glutes Side bilateral Reps/Minutes 12 Sidelying Exercises clamshell Side bilateral Reps/Minutes 2x10 hip abd Sidelying Exercise Name attempted 2x but stopped d/t pain Side right Standing Exercises hip hike Standing Exercise Name attempted 2x but painful on R so stopped stretch Standing Exercise Name hip flexor Side bilateral Reps/Minutes 30 sec ea Manual Therapy Treatment Soft Tissue Mobilization piriformis Body Location R Mobilization Type Sustained Pressure Intensity/Depth Moderate Comments w/hip IR/ER Joint Mobilizations hip Joint R Direction hip on axis ER FM Comments sustained hold at end range PT-OP-T Assessment and Plan Start: 10/16/21 17:39 Freq: Status: Active Protocol: Document 10/22/21 13:02 [facility] (Rec: 10/22/21 13:51 [facility] [id number]) Physical Therapy Assessment Goals skiing Jail Goal (LTG) Pt will be able to return to cross country skiing and biking w/o inc pain. LTG Duration 12/15/21 transitions Resident Buyer Goal (LTG) Pt will be able to do sit to stand from chair w/o inc hip pain intially. LTG Duration 12/15/21 walking Short Term Goal (STG) Pt will be able to walk at least 1.5 mile w/o inc pain greater than 2/10. STG Duration 11/17/21 Resident Buyer Goal (LTG) Pt will be able to go for longer walks w/hills w/o inc pain greater than 2/10 LTG Duration 12/15/21 strength Short Term Goal (STG) Pt will be indep w/HEP STG Duration 11/17/21 Resident Buyer Goal (LTG) Pt will score at least 5/5 B on LE strength tests and 3/5 on LPM in all planes to imrpove hip and core stability in order to improve pt's ability to remain active w/o pain. LTG Duration 12/15/21 balance Short Term Goal (STG) Pt will be able to do SLS for 5 sec B to show improved balance. STG Duration 11/17/21 Resident Buyer Goal (LTG) Pt will be able to do SLS 10 sec B w/o lat hip shear or opposite hip drop to show improved balance. LTG Duration 12/15/21 Assessment Summary Assessment Pt did well with exercises today w/significant cueing for core facilitation. She had significant improvement w/ER ROM after manual therapy w/ relief. Physical Therapy Plan Next Visit Focus/Plan Next Note Type Treatment Note Next Visit Plan review exercises and progress as able, add pilates based activities for pt, manual to R hip
--- NOTE | 2021-10-25 12:56 | PT.OTN ---
Current Diagnoses Sciatica, right side (10/25/21) Myalgia, other site (10/25/21) Difficulty in walking, not elsewhere classified (10/25/21) Abnormal posture (10/25/21) Weakness (10/25/21) Physical Therapy Treatment Note PT-OP-A Visit Information Start: 10/16/21 17:39 Freq: Status: Active Protocol: Document 10/25/21 11:54 [facility] (Rec: 10/25/21 12:56 [facility] [id number]) Out-Patient Physical Therapy Visit Information Visit Information Visit Type Treatment Note Visit Note 11/28 Visit Start Time 12:00 Visit Stop Time 12:46 Total Visit Minutes 46 Visit Number 3 Number of BEAM BUILDER HELPER Visits 1 PT-OP-B Current Condition Start: 10/16/21 17:39 Freq: Status: Active Protocol: Document 10/17/21 11:19 [facility] (Rec: 10/17/21 12:22 [facility] [id number]) Current Condition History of Current Condition Onset Date early Aug worsening Current Complaints R hip History of Current Condition Pt reports her R hip has bothered her at a low level for a long time. She was doing pilates for 3 years before [facility] and the instructor could always help her fix it, but ALEKSANDRA stopped pilates lessons. THis summer, she had tripped and fell landing on her hip. Notes she was riding ehr bike and she saw people ahead of her and paniked and lost her balance and fell on R hip. She did PT for 3 sessions at another place in [facility], but she did not feel like she got the specific instructions for the exercises. She feels like she got too ambitious w/walking and has had a set back. She has noticed walking up the stairs carrying about anything , the R hip will hurt. Pt reports she gets pain in lat R krueger and ant hip mostly along w/post. Pt reports after sitting, she is is stiff when trying to walk for first 10 steps. She thinks some of inc in pain is d/t lack of aerobic activity. Notes she has found posture is very important and she experiences less pain. She has been doing some exercises for hips (notes it is mostly back stuff). She says they feel good. Pt reports if she stands for 1.5 hours in the kitchen then she gets back pain but she can improve it with standing linnea pose. Pt reports hip gets frozen and lhas to stop very 1.5 hrs [address]. Denies numbness or tingling. Pt reports she is doing very little walking. Yesterday, she walked into the post office then 1.5 blocks to a store then back to the car. She walked very mindfully ( watching posture & gait) and it really slows her down but hasn't been walking much. Pt has done the [place] of [place] ( [place] .75 miles) and she had more achiness and calf twangs. It felt better once she sat in the car. She can feel like her leg is just a little more tender after. 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 PT-OP-D Balance Start: 10/16/21 17:39 Freq: Status: Active Protocol: Document 10/17/21 11:19 [facility] (Rec: 10/17/21 12:22 [facility] [id number]) Balance Tests Single Limb Standing Single Limb- Right 1 sec Single Limb- Left 1 sec PT-OP-F Manual Assessment Start: 10/16/21 17:39 Freq: Status: Active Protocol: Document 10/17/21 11:19 [facility] (Rec: 10/17/21 12:22 [facility] [id number]) Manual Assessments Joint Mobility Assessment Joint Mobility Assessment R slightly higher iliac crest, equal greater trochanter PT-OP-G Mobility & Gait Start: 10/16/21 17:39 Freq: Status: Active Protocol: Document 10/17/21 11:19 [facility] (Rec: 10/17/21 12:22 [facility] [id number]) OP Gait Assessment Comments Gait Comments Pt significant L hip drop when WB on R w/very stiff movement and dec WB time on RLE and dec push off B PT-OP-J Posture/Palpation/Skin Start: 10/16/21 17:39 Freq: Status: Active Protocol: Document 10/17/21 11:19 [facility] (Rec: 10/17/21 12:22 [facility] [id number]) Posture Evaluation Gurwinder Postural Classification System Gurwinder Postural Classifications Posterior/Anterior Vertebral Compression Test 1 Lumbar Protective Mechanism Left AP 0 Lumbar Protective Mechanism Right AP 0 Lumbar Protective Mechanism Left PA 0 Lumbar Protective Mechanism Right PA 0 Comments Posture Comments L foot pronation, IR B femurs, R shoulder lower, SB R, R hip shear PT-OP-L Special Tests Start: 10/16/21 17:39 Freq: Status: Active Protocol: Document 10/17/21 11:19 [facility] (Rec: 10/17/21 12:22 [facility] [id number]) Special Tests Lumbar Spine Special Tests Slump Test Results positive R Straight Leg Raise Test Results positive R PT-OP-M Strength Start: 10/16/21 17:39 Freq: Status: Active Protocol: Document 10/17/21 11:19 [facility] (Rec: 10/17/21 12:22 [facility] [id number]) Hip Strength Hip Manual Muscle Testing Right Flexion (L2) 3+ Fair+ Extension (S1) 3+ Fair+ Abduction 3+ Fair+ Adduction 3+ Fair+ External Rotation 3+ Fair+ Internal Rotation 3+ Fair+ Comments tingly in R foot w/add; pain w /ext Left Flexion (L2) 3+ Fair+ Abduction 3+ Fair+ Adduction 4 Good External Rotation 3+ Fair+ Internal Rotation 3+ Fair+ Knee Strength Knee Manual Muscle Testing Right Flexion (S2) 4+ Good+ Extension (L3) 4+ Good+ Left Flexion (S2) 4+ Good+ Extension (L3) 4+ Good+ Ankle/Foot Strength Ankle and Foot Manual Muscle Testing Right Dorsiflexion (L4) 4+ Good+ Plantarflexion (S1) 5 Normal Comments can do 20 heel raises but twang in R lat thigh and calf Left Dorsiflexion (L4) 4+ Good+ Plantarflexion (S1) 4- Good- Comments 12 heel raises stop d/t weakness PT-OP-Q Treatments Start: 10/16/21 17:39 Freq: Status: Active Protocol: Document 10/25/21 11:54 [facility] (Rec: 10/25/21 12:56 [facility] [id number]) Therapeutic Exercises Supine Exercises stretch Supine Exercise Name 1. figure 4 w/opp knee bent 2. piriformis cross body Side bilateral Reps/Minutes 30 sec ea bridge Supine Exercise Name w/PT traction for first 8 reps to facilitate glutes Side bilateral Reps/Minutes 12 Sidelying Exercises clamshell Side bilateral Reps/Minutes 2x10 hip abd Sidelying Exercise Name attempted 2x but stopped d/t pain Side right Standing Exercises QL stretch Standing Exercise Name in doorway Side bilateral Reps/Minutes 2x30 Comments added to HEP Other Exercises Foam Roller Other Exercise Name glute max and med Side right Equipment Used foam roller Reps/Minutes 2' Comments pt has roller at home Self-STM Equipment Used small ball Reps/Minutes 5' Comments added to HEP: glute med, iliac crest (R) Child's Pose Other Exercise Name modified in standing, reaching fwd and lateral Side bilateral Reps/Minutes x30 ea Comments added to HEP Manual Therapy Treatment Soft Tissue Mobilization Glute Med Body Location R Mobilization Type Myofascial Release,Sustained Pressure,Trigger Point Release Intensity/Depth Moderate Body Position Sidelying piriformis Body Location R Mobilization Type Sustained Pressure Intensity/Depth Moderate Comments w/hip IR/ER Manual Techniques QL stretch Type R QL traction stretch Reps/Duration 2x1' Self-Care/Home Management Treatment Education Other Education Education on tight mms causing nerve pain using ladle car operator of human body to show mms and nerves Added self-STM to iliac crest (QL) and glute med against wall, doorway QL stretch, and modified child's pose fwd & lateral using countertop to HEP. PT-OP-T Assessment and Plan Start: 10/16/21 17:39 Freq: Status: Active Protocol: Document 10/25/21 11:54 [facility] (Rec: 10/25/21 12:56 [facility] [id number]) Physical Therapy Assessment Goals skiing Financial Administration Officer Goal (LTG) Pt will be able to return to cross country skiing and biking w/o inc pain. LTG Duration 12/15/21 transitions [facility] Goal (LTG) Pt will be able to do sit to stand from chair w/o inc hip pain intially. LTG Duration 12/15/21 walking Short Term Goal (STG) Pt will be able to walk at least 1.5 mile w/o inc pain greater than 2/10. STG Duration 11/17/21 Financial Administration Officer Goal (LTG) Pt will be able to go for longer walks w/hills w/o inc pain greater than 2/10 LTG Duration 12/15/21 strength Short Term Goal (STG) Pt will be indep w/HEP STG Duration 11/17/21 Financial Administration Officer Goal (LTG) Pt will score at least 5/5 B on LE strength tests and 3/5 on LPM in all planes to imrpove hip and core stability in order to improve pt's ability to remain active w/o pain. LTG Duration 12/15/21 balance Short Term Goal (STG) Pt will be able to do SLS for 5 sec B to show improved balance. STG Duration 11/17/21 Financial Administration Officer Goal (LTG) Pt will be able to do SLS 10 sec B w/o lat hip shear or opposite hip drop to show improved balance. LTG Duration 12/15/21 Assessment Summary Assessment Pt felt she got relief after manual work last session. Continued manual to glute med, piriformis, and lateral iliac crest. Added self-STM with tennis ball or foam roller to HEP and practiced movements in clinic. Added in child's pose reaching laterally along with QL stretch in doorway and self-STM to HEP to improve pt' s LBP and sciatic nerve pain. Physical Therapy Plan Frequency and Duration Frequency of Treatment 2x/Week Duration of Treatment 2 months Plan of Care Start Date 10/17/21 Plan of Care End Date 12/15/21 Therapeutic Interventions Therapeutic Interventions Aquatic Therapy,Balance Training,Gait Training,Home Exercise Program,Joint Mobilizations,Manual Therapy, Neuromuscular Re-education, Patient/Caregiver Education, Self-Care/Home Management,Soft Tissue Mobilization,Taping, Therapeutic Activities, Therapeutic Exercises Modalities Cold Pack/Ice Massage,Electric Stimulation,Hot Packs, Infrared Therapy,Ultrasound Next Visit Focus/Plan Next Note Type Treatment Note Next Visit Plan Assess new HEP and self-STM. Progress core exercises and continue HEP stretches/ exercises. Add pilates based activities for pt, manual to R hip
--- NOTE | 2021-10-29 09:50 | PT.OTN ---
Current Diagnoses Sciatica, right side (10/29/21) Myalgia, other site (10/29/21) Difficulty in walking, not elsewhere classified (10/29/21) Abnormal posture (10/29/21) Weakness (10/29/21) Physical Therapy Treatment Note PT-OP-A Visit Information Start: 10/16/21 17:39 Freq: Status: Active Protocol: Document 10/29/21 09:03 [facility] (Rec: 10/29/21 09:50 [facility] [id number]) Out-Patient Physical Therapy Visit Information Visit Information Visit Type Treatment Note Visit Note 12/29 Visit Start Time 09:05 Visit Stop Time 09:45 Total Visit Minutes 40 Visit Number 4 Number of LEGAL [employer] SPECIALIST Visits 0 PT-OP-B Current Condition Start: 10/16/21 17:39 Freq: Status: Active Protocol: Document 10/17/21 11:19 [facility] (Rec: 10/17/21 12:22 [facility] [id number]) Current Condition History of Current Condition Onset Date early Aug worsening Current Complaints R hip History of Current Condition Pt reports her R hip has bothered her at a low level for a long time. She was doing pilates for 3 years before [facility] and the instructor could always help her fix it, but [facility]ARC[facility] stopped pilates lessons. THis summer, she had tripped and fell landing on her hip. Notes she was riding ehr bike and she saw people ahead of her and paniked and lost her balance and fell on R hip. She did PT for [address] in [facility], but she did not feel like she got the specific instructions for the exercises. She feels like she got too ambitious w/walking and has had a set back. She has noticed walking up the stairs carrying about anything , the R hip will hurt. Pt reports she gets pain in lat R krueger and ant hip mostly along w/post. Pt reports after sitting, she is is stiff when trying to walk for first 10 steps. She thinks some of inc in pain is d/t lack of aerobic activity. Notes she has found posture is very important and she experiences less pain. She has been doing some exercises for hips (notes it is mostly back stuff). She says they feel good. Pt reports if she stands for 1.5 hours in the kitchen then she gets back pain but she can improve it with standing linnea pose. Pt reports hip gets frozen and lhas to stop very 1.5 [address]. Denies numbness or tingling. Pt reports she is doing very little walking. Yesterday, she walked into the post office then 1.5 blocks to a store then back to the car. She walked very mindfully ( watching posture & gait) and it really slows her down but hasn't been walking much. Pt has [place] [employer] [place] ( [place] miles) and she had more achiness and calf twangs. It felt better once she sat in the car. She can feel like her leg is just a little more tender after. 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 (Rec: 10/29/21 09:50 [facility] [id number]) OP-PT Subjective Patient Comments Patient Comments Reports she feels like her R leg isn't as heavy and is walking a little better PT-OP-D Balance Start: 10/16/21 17:39 Freq: Status: Active Protocol: Document 10/17/21 11:19 [facility] (Rec: 10/17/21 12:22 [facility] [id number]) Balance Tests Single Limb Standing Single Limb- Right 1 sec Single Limb- Left 1 sec PT-OP-F Manual Assessment Start: 10/16/21 17:39 Freq: Status: Active Protocol: Document 10/17/21 11:19 [facility] (Rec: 10/17/21 12:22 [facility] [id number]) Manual Assessments Joint Mobility Assessment Joint Mobility Assessment R slightly higher iliac crest, equal greater trochanter PT-OP-G Mobility & Gait Start: 10/16/21 17:39 Freq: Status: Active Protocol: Document 10/17/21 11:19 [facility] (Rec: 10/17/21 12:22 [facility] [id number]) OP Gait Assessment Comments Gait Comments Pt significant L hip drop when WB on R w/very stiff movement and dec WB time on RLE and dec push off B PT-OP-J Posture/Palpation/Skin Start: 10/16/21 17:39 Freq: Status: Active Protocol: Document 10/17/21 11:19 [facility] (Rec: 10/17/21 12:22 [facility] [id number]) Posture Evaluation [facility] Postural Classification System [facility] Postural Classifications Posterior/Anterior Vertebral Compression Test 1 Lumbar Protective Mechanism Left AP 0 Lumbar Protective Mechanism Right AP 0 Lumbar Protective Mechanism Left PA 0 Lumbar Protective Mechanism Right PA 0 Comments Posture Comments L foot pronation, IR B femurs, R shoulder lower, SB R, R hip shear PT-OP-L Special Tests Start: 10/16/21 17:39 Freq: Status: Active Protocol: Document 10/17/21 11:19 [facility] (Rec: 10/17/21 12:22 [facility] [id number]) Special Tests Lumbar Spine Special Tests Slump Test Results positive R Straight Leg Raise Test Results positive R PT-OP-M Strength Start: 10/16/21 17:39 Freq: Status: Active Protocol: Document 10/17/21 11:19 [facility] (Rec: 10/17/21 12:22 [facility] [id number]) Hip Strength Hip Manual Muscle Testing Right Flexion (L2) 3+ Fair+ Extension (S1) 3+ Fair+ Abduction 3+ Fair+ Adduction 3+ Fair+ External Rotation 3+ Fair+ Internal Rotation 3+ Fair+ Comments tingly in R foot w/add; pain w /ext Left Flexion (L2) 3+ Fair+ Abduction 3+ Fair+ Adduction 4 Good External Rotation 3+ Fair+ Internal Rotation 3+ Fair+ Knee Strength Knee Manual Muscle Testing Right Flexion (S2) 4+ Good+ Extension (L3) 4+ Good+ Left Flexion (S2) 4+ Good+ Extension (L3) 4+ Good+ Ankle/Foot Strength Ankle and Foot Manual Muscle Testing Right Dorsiflexion (L4) 4+ Good+ Plantarflexion (S1) 5 Normal Comments can do 20 heel raises but twang in R lat thigh and calf Left Dorsiflexion (L4) 4+ Good+ Plantarflexion (S1) 4- Good- Comments 12 heel raises stop d/t weakness PT-OP-Q Treatments Start: 10/16/21 17:39 Freq: Status: Active Protocol: Document 10/29/21 09:03 [facility] (Rec: 10/29/21 09:50 [facility] [id number]) Therapeutic Exercises Supine Exercises stretch Supine Exercise Name 1. figure 4 w/opp knee bent Side right Reps/Minutes 30 sec ea core Supine Exercise Name november w/core engagement Side bilateral Reps/Minutes 15 Comments facilitation for L side of core & L1 stability bridge Supine Exercise Name 1 leg at a time Side bilateral Reps/Minutes 12 Standing Exercises stretch Standing Exercise Name 1.hip flexor in standing 2. quad on chair Side right Reps/Minutes quick review of hip [id number] sec 2. 30 sec Manual Therapy Treatment Soft Tissue Mobilization thigh Body Location R lat quad & ITB Mobilization Type Rolling,Strumming Body Position Supine Comments w/hip rot sup>mod iliacus Body Location R Mobilization Type Sustained Pressure Intensity/Depth Moderate Body Position Supine Comments w/hip IR/ER Joint Mobilizations innominate Joint R Direction flex FM hip Joint R Direction inf FM PT-OP-T Assessment and Plan Start: 10/16/21 17:39 Freq: Status: Active Protocol: Document 10/29/21 09:03 [facility] (Rec: 10/29/21 09:50 [facility] [id number]) Physical Therapy Assessment Goals skiing Intermediate Goal (LTG) Pt will be able to return to cross country skiing and biking w/o inc pain. 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 LTG Duration 12/15/21 walking Short Term Goal (STG) Pt will be able to walk at least 1.5 mile w/o inc pain greater than 2/10. STG Duration 11/17/21 Truck Shop Supervisor Goal (LTG) Pt will be able to go for longer walks w/hills w/o inc pain greater than 2/10 LTG Duration 12/15/21 strength Short Term Goal (STG) Pt will be indep w/HEP STG Duration 11/17/21 Intermediate Goal (LTG) Pt will score at least 5/5 B on LE strength tests and 3/5 on LPM in all planes to imrpove hip and core stability in order to improve pt's ability to remain active w/o pain. LTG Duration 12/15/21 balance Short Term Goal (STG) Pt will be able to do SLS for 5 sec B to show improved balance. STG Duration 11/17/21 Truck Shop Supervisor Goal (LTG) Pt will be able to do SLS 10 sec B w/o lat hip shear or opposite hip drop to show improved balance. LTG Duration 12/15/21 Assessment Summary Assessment Pt did feel some soreness after today's manual work. She was encouraged to ice and drink plenty of fluids right after session and stretch more at home. Ipmproved hip flex after manual Physical Therapy Plan Frequency and Duration Frequency of Treatment 2x/Week Duration of Treatment 2 months Plan of Care Start Date 10/17/21 Plan of Care End Date 12/15/21 Next Visit Focus/Plan Next Note Type Treatment Note Next Visit Plan review HEP and cont to adbance core and hip abd strength
--- NOTE | 2021-11-05 10:34 | PT.OTN ---
Current Diagnoses Sciatica, right side (11/05/21) Myalgia, other site (11/05/21) Difficulty in walking, not elsewhere classified (11/05/21) Abnormal posture (11/05/21) Weakness (11/05/21) Physical Therapy Treatment Note PT-OP-A Visit Information Start: 10/16/21 17:39 Freq: Status: Active Protocol: Document 11/05/21 09:49 [facility] (Rec: 11/05/21 10:34 [facility] [id number]) Out-Patient Physical Therapy Visit Information Visit Information Visit Type Treatment Note Visit Note 01/28 Visit Start Time 09:49 Visit Stop Time 10:30 Total Visit Minutes 41 Visit Number 5 Number of [employer] Visits 0 PT-OP-B Current Condition Start: 10/16/21 17:39 Freq: Status: Active Protocol: Document 10/17/21 11:19 [facility] (Rec: 10/17/21 12:22 [facility] [id number]) Current Condition History of Current Condition Onset Date early Aug worsening Current Complaints R hip History of Current Condition Pt reports her R hip has bothered her at a low level for a long time. She was doing pilates for 3 years before [facility] and the instructor could always help her fix it, but [facility]ARC[facility] stopped pilates lessons. THis summer, she had tripped and fell landing on her hip. Notes she was riding ehr bike and she saw people ahead of her and paniked and lost her balance and fell on R hip. She did PT for 3 sessions at another place in [facility], but she did not feel like she got the specific instructions for the exercises. She feels like she got too ambitious w/walking and has had a set back. She has noticed walking up the stairs carrying about anything , the R hip will hurt. Pt reports she gets pain in lat R krueger and ant hip mostly along w/post. Pt reports after sitting, she is is stiff when trying to walk for first 10 steps. She thinks some of inc in pain is d/t lack of aerobic activity. Notes she has found posture is very important and she experiences less pain. She has been doing some exercises for hips (notes it is mostly back stuff). She says they feel good. Pt reports if she stands for 1.5 hours in the kitchen then she gets back pain but she can improve it with standing linnea pose. Pt reports hip gets frozen and lhas to stop very 1.5 hrs [address]. Denies numbness or tingling. Pt reports she is doing very little walking. Yesterday, she walked into the post office then 1.5 blocks to a store then back to the car. She walked very mindfully ( watching posture & gait) and it really slows her down but hasn't been walking much. Pt has done the [place] side of [employer] [place] trail ( about .75 miles) and she had more achiness and calf twangs. It felt better once she sat in the car. She can feel like her leg is just a little more tender after. 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 PT-OP-D Balance Start: 10/16/21 17:39 Freq: Status: Active Protocol: Document 10/17/21 11:19 [facility] (Rec: 10/17/21 12:22 [facility] [id number]) Balance Tests Single Limb Standing Single Limb- Right 1 sec Single Limb- Left 1 sec PT-OP-F Manual Assessment Start: 10/16/21 17:39 Freq: Status: Active Protocol: Document 10/17/21 11:19 [facility] (Rec: 10/17/21 12:22 [facility] [id number]) Manual Assessments Joint Mobility Assessment Joint Mobility Assessment R slightly higher iliac crest, equal greater trochanter PT-OP-G Mobility & Gait Start: 10/16/21 17:39 Freq: Status: Active Protocol: Document 10/17/21 11:19 [facility] (Rec: 10/17/21 12:22 [facility] [id number]) OP Gait Assessment Comments Gait Comments Pt significant L hip drop when WB on R w/very stiff movement and dec WB time on RLE and dec push off B PT-OP-J Posture/Palpation/Skin Start: 10/16/21 17:39 Freq: Status: Active Protocol: Document 10/17/21 11:19 [facility] (Rec: 10/17/21 12:22 [facility] [id number]) Posture Evaluation [facility] Postural Classification System [facility] Postural Classifications Posterior/Anterior Vertebral Compression Test 1 Lumbar Protective Mechanism Left AP 0 Lumbar Protective Mechanism Right AP 0 Lumbar Protective Mechanism Left PA 0 Lumbar Protective Mechanism Right PA 0 Comments Posture Comments L foot pronation, IR B femurs, R shoulder lower, SB R, R hip shear PT-OP-L Special Tests Start: 10/16/21 17:39 Freq: Status: Active Protocol: Document 10/17/21 11:19 [facility] (Rec: 10/17/21 12:22 [facility] [id number]) Special Tests Lumbar Spine Special Tests Slump Test Results positive R Straight Leg Raise Test Results positive R PT-OP-M Strength Start: 10/16/21 17:39 Freq: Status: Active Protocol: Document 10/17/21 11:19 [facility] (Rec: 10/17/21 12:22 [facility] [id number]) Hip Strength Hip Manual Muscle Testing Right Flexion (L2) 3+ Fair+ Extension (S1) 3+ Fair+ Abduction 3+ Fair+ Adduction 3+ Fair+ External Rotation 3+ Fair+ Internal Rotation 3+ Fair+ Comments tingly in R foot w/add; pain w /ext Left Flexion (L2) 3+ Fair+ Abduction 3+ Fair+ Adduction 4 Good External Rotation 3+ Fair+ Internal Rotation 3+ Fair+ Knee Strength Knee Manual Muscle Testing Right Flexion (S2) 4+ Good+ Extension (L3) 4+ Good+ Left Flexion (S2) 4+ Good+ Extension (L3) 4+ Good+ Ankle/Foot Strength Ankle and Foot Manual Muscle Testing Right Dorsiflexion (L4) 4+ Good+ Plantarflexion (S1) 5 Normal Comments can do 20 heel raises but twang in R lat thigh and calf Left Dorsiflexion (L4) 4+ Good+ Plantarflexion (S1) 4- Good- Comments 12 heel raises stop d/t weakness PT-OP-Q Treatments Start: 10/16/21 17:39 Freq: Status: Active Protocol: Document 11/05/21 09:49 [facility] (Rec: 11/05/21 10:34 [facility] [id number]) Therapeutic Exercises Supine Exercises core Supine Exercise Name november w/core engagement Side bilateral Reps/Minutes 10 Comments facilitation for L side of core & L1 stability bridge Supine Exercise Name /november 1 leg at a time Side bilateral Reps/Minutes 8 Sidelying Exercises clamshell Side bilateral Reps/Minutes 10 hip abd Side bilateral Reps/Minutes 15 Standing Exercises hip abd Side bilateral Equipment Used counter Reps/Minutes 10 Comments cues for posture stretch Standing Exercise Name quad on chair Side right Reps/Minutes 1 min Manual Therapy Treatment Soft Tissue Mobilization thigh Body Location R HS & adductors Mobilization Type Rolling,Strumming Intensity/Depth Moderate Body Position Hooklying Comments w/hip IR/ER PT-OP-T Assessment and Plan Start: 10/16/21 17:39 Freq: Status: Active Protocol: Document 11/05/21 09:49 [facility] (Rec: 11/05/21 10:34 [facility] [id number]) Physical Therapy Assessment Goals skiing Intermediate Goal (LTG) Pt will be able to return to cross country skiing and biking w/o inc pain. LTG Duration 12/15/21 transitions Intermediate Goal (LTG) Pt will be able to do sit to stand from chair w/o inc hip pain intially. LTG Duration 12/15/21 walking Short Term Goal (STG) Pt will be able to walk at least 1.5 mile w/o inc pain greater than 2/10. STG Duration 11/17/21 Intermediate Goal (LTG) Pt will be able to go for longer walks w/hills w/o inc pain greater than 2/10 LTG Duration 12/15/21 strength Short Term Goal (STG) Pt will be indep w/HEP STG Duration 11/17/21 Intermediate Goal (LTG) Pt will score at least 5/5 B on LE strength tests and 3/5 on LPM in all planes to imrpove hip and core stability in order to improve pt's ability to remain active w/o pain. LTG Duration 12/15/21 balance Short Term Goal (STG) Pt will be able to do SLS for 5 sec B to show improved balance. STG Duration 11/17/21 Intermediate Goal (LTG) Pt will be able to do SLS 10 sec B w/o lat hip shear or opposite hip drop to show improved balance. LTG Duration 12/15/21 Assessment Summary Assessment Pt did well with new abd exercises w/good performance w /cues for alignment but no pain. She had tightness in add and HS that improved w/manual . Physical Therapy Plan Frequency and Duration Frequency of Treatment 2x/Week Duration of Treatment 2 months Plan of Care Start Date 10/17/21 Plan of Care End Date 12/15/21 Next Visit Focus/Plan Next Note Type Treatment Note Next Visit Plan review abd exercises & progress core exercises, try adding tband to standing hip abd
--- NOTE | 2021-11-08 12:56 | PT.OTN ---
Current Diagnoses Sciatica, right side (11/08/21) Myalgia, other site (11/08/21) Difficulty in walking, not elsewhere classified (11/08/21) Abnormal posture (11/08/21) Weakness (11/08/21) Physical Therapy Treatment Note PT-OP-A Visit Information Start: 10/16/21 17:39 Freq: Status: Active Protocol: Document 11/08/21 12:04 MA (Rec: 11/08/21 12:55 MA [id number]) Out-Patient Physical Therapy Visit Information Visit Information Visit Type Treatment Note Visit Note 02/28 Visit Start Time 12:00 Visit Stop Time 01:00 Total Visit Minutes 60 Visit Number 6 Number of GRANT SPECIALIST Visits 1 PT-OP-B Current Condition Start: 10/16/21 17:39 Freq: Status: Active Protocol: Document 10/17/21 11:19 [facility] (Rec: 10/17/21 12:22 [facility] [id number]) Current Condition History of Current Condition Onset Date early Aug worsening Current Complaints R hip History of Current Condition Pt reports her R hip has bothered her at a low level for a long time. She was doing pilates for 3 years before [facility] and the instructor could always help her fix it, but ALEKSANDRA stopped pilates lessons. THis summer, she had tripped and fell landing on her hip. Notes she was riding ehr bike and she saw people ahead of her and paniked and lost her balance and fell on R hip. She did PT for 3 sessions [address] in [facility], but she did not feel like she got the specific instructions for the exercises. She feels like she got too ambitious w/walking and has had a set back. She has noticed walking up the stairs carrying about anything , the R hip will hurt. Pt reports she gets pain in lat R krueger and ant hip mostly along w/post. Pt reports after sitting, she is is stiff when trying to walk for first 10 steps. She thinks some of inc in pain is d/t lack of aerobic activity. Notes she has found posture is very important and she experiences less pain. She has been doing some exercises for hips (notes it is mostly back stuff). She says they feel good. Pt reports if she stands for 1.5 hours in the kitchen then she gets back pain but she can improve it with standing linnea pose. Pt reports hip gets frozen and lhas to stop very 1.5 [address]. Denies numbness or tingling. Pt reports she is doing very little walking. Yesterday, she walked into the post office then 1.5 blocks to a store then back to the car. She walked very mindfully ( watching posture & gait) and it really slows her down but hasn't been walking much. Pt has [place] ( [place]) and she had more achiness and calf twangs. It felt better once she sat in the car. She can feel like her leg is just a little more tender after. 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 She feels she cannot do her standing hip abd exercise because it is too painful PT-OP-D Balance Start: 10/16/21 17:39 Freq: Status: Active Protocol: Document 10/17/21 11:19 [facility] (Rec: 10/17/21 12:22 [facility] [id number]) Balance Tests Single Limb Standing Single Limb- Right 1 sec Single Limb- Left 1 sec PT-OP-F Manual Assessment Start: 10/16/21 17:39 Freq: Status: Active Protocol: Document 10/17/21 11:19 [facility] (Rec: 10/17/21 12:22 [facility] [id number]) Manual Assessments Joint Mobility Assessment Joint Mobility Assessment R slightly higher iliac crest, equal greater trochanter PT-OP-G Mobility & Gait Start: 10/16/21 17:39 Freq: Status: Active Protocol: Document 10/17/21 11:19 [facility] (Rec: 10/17/21 12:22 [facility] [id number]) OP Gait Assessment Comments Gait Comments Pt significant L hip drop when WB on R w/very stiff movement and dec WB time on RLE and dec push off B PT-OP-J Posture/Palpation/Skin Start: 10/16/21 17:39 Freq: Status: Active Protocol: Document 10/17/21 11:19 [facility] (Rec: 10/17/21 12:22 [facility] [id number]) Posture Evaluation [facility] Postural Classification System [facility] Postural Classifications Posterior/Anterior Vertebral Compression Test 1 Lumbar Protective Mechanism Left AP 0 Lumbar Protective Mechanism Right AP 0 Lumbar Protective Mechanism Left PA 0 Lumbar Protective Mechanism Right PA 0 Comments Posture Comments L foot pronation, IR B femurs, R shoulder lower, SB R, R hip shear PT-OP-L Special Tests Start: 10/16/21 17:39 Freq: Status: Active Protocol: Document 10/17/21 11:19 [facility] (Rec: 10/17/21 12:22 [facility] [id number]) Special Tests Lumbar Spine Special Tests Slump Test Results positive R Straight Leg Raise Test Results positive R PT-OP-M Strength Start: 10/16/21 17:39 Freq: Status: Active Protocol: Document 10/17/21 11:19 [facility] (Rec: 10/17/21 12:22 [facility] [id number]) Hip Strength Hip Manual Muscle Testing Right Flexion (L2) 3+ Fair+ Extension (S1) 3+ Fair+ Abduction 3+ Fair+ Adduction 3+ Fair+ External Rotation 3+ Fair+ Internal Rotation 3+ Fair+ Comments tingly in R foot w/add; pain w /ext Left Flexion (L2) 3+ Fair+ Abduction 3+ Fair+ Adduction 4 Good External Rotation 3+ Fair+ Internal Rotation 3+ Fair+ Knee Strength Knee Manual Muscle Testing Right Flexion (S2) 4+ Good+ Extension (L3) 4+ Good+ Left Flexion (S2) 4+ Good+ Extension (L3) 4+ Good+ Ankle/Foot Strength Ankle and Foot Manual Muscle Testing Right Dorsiflexion (L4) 4+ Good+ Plantarflexion (S1) 5 Normal Comments can do 20 heel raises but twang in R lat thigh and calf Left Dorsiflexion (L4) 4+ Good+ Plantarflexion (S1) 4- Good- Comments 12 heel raises stop d/t weakness PT-OP-Q Treatments Start: 10/16/21 17:39 Freq: Status: Active Protocol: Document 11/08/21 12:04 MA (Rec: 11/08/21 12:55 MA [id number]) Therapeutic Exercises Supine Exercises stretch Supine Exercise Name with belt HS stretches with ER /IR Side right Reps/Minutes 30 ea Comments added to HEP Sidelying Exercises hip abd Side bilateral Reps/Minutes 10 Standing Exercises hip abd Side bilateral Equipment Used counter Reps/Minutes 10 Comments cues for posture Manual Therapy Treatment Soft Tissue Mobilization thigh Body Location R med HS & adductors Mobilization Type Rolling,Strumming Intensity/Depth Moderate Body Position Hooklying Comments w/hip IR/ER iliacus Body Location R Mobilization Type Sustained Pressure Intensity/Depth Moderate Body Position Supine Comments w/hip IR/ER Glute Med Body Location R med & Max, proximal ITB Mobilization Type Myofascial Release,Sustained Pressure,Trigger Point Release Intensity/Depth Moderate Body Position Sidelying PT-OP-R Modalities Start: 10/16/21 17:39 Freq: Status: Active Protocol: Document 11/08/21 12:04 MA (Rec: 11/08/21 12:55 MA [id number]) Hot Pack/Cold Pack Treatment Hot Pack Location LB Patient Position Hooklying Treatment Duration (minutes) 15 Patient Tolerance Good PT-OP-T Assessment and Plan Start: 10/16/21 17:39 Freq: Status: Active Protocol: Document 11/08/21 12:04 MA (Rec: 11/08/21 12:55 MA [id number]) Physical Therapy Assessment Goals skiing [facility] Goal (LTG) Pt will be able to return to cross country skiing and biking w/o inc pain. LTG Duration 12/15/21 transitions Indirect Sales Representative Goal (LTG) Pt will be able to do sit to stand from chair w/o inc hip pain intially. LTG Duration 12/15/21 walking Short Term Goal (STG) Pt will be able to walk at least 1.5 mile w/o inc pain greater than 2/10. STG Duration 11/17/21 Indirect Sales Representative Goal (LTG) Pt will be able to go for longer walks w/hills w/o inc pain greater than 2/10 LTG Duration 12/15/21 strength Short Term Goal (STG) Pt will be indep w/HEP STG Duration 11/17/21 Indirect Sales Representative Goal (LTG) Pt will score at least 5/5 B on LE strength tests and 3/5 on LPM in all planes to imrpove hip and core stability in order to improve pt's ability to remain active w/o pain. LTG Duration 12/15/21 balance Short Term Goal (STG) Pt will be able to do SLS for 5 sec B to show improved balance. STG Duration 11/17/21 Indirect Sales Representative Goal (LTG) Pt will be able to do SLS 10 sec B w/o lat hip shear or opposite hip drop to show improved balance. LTG Duration 12/15/21 Assessment Summary Assessment Pt was able to do standing hip abd exercise at end of session with no pain. She admits she was leaning laterally at home to help with exercise which may have exacerbated her pain. Pt feels no pain after STM and states she feels so much looser. Added in supine HS stretch ( straight/medial/lateral) with belt to HEP. Requested pt do her stretches before trying hip abd exercise at home again and see if that helps with her pain. Ended session with heat to see if heat vs ice makes a difference in LBP/hip pain. Physical Therapy Plan Frequency and Duration Frequency of Treatment 2x/Week Duration of Treatment 2 months Plan of Care Start Date 10/17/21 Plan of Care End Date 12/15/21 Therapeutic Interventions Therapeutic Interventions Aquatic Therapy,Balance Training,Gait Training,Home Exercise Program,Joint Mobilizations,Manual Therapy, Neuromuscular Re-education, Patient/Caregiver Education, Self-Care/Home Management,Soft Tissue Mobilization,Taping, Therapeutic Activities, Therapeutic Exercises Modalities Cold Pack/Ice Massage,Electric Stimulation,Hot Packs, Infrared Therapy,Ultrasound Next Visit Focus/Plan Next Note Type Treatment Note Next Visit Plan review standing abd and possibly add tband, begin to progress core exercises next session
--- NOTE | 2021-11-12 12:18 | PT.OTN ---
Current Diagnoses Sciatica, right side (11/12/21) Myalgia, other site (11/12/21) Difficulty in walking, not elsewhere classified (11/12/21) Abnormal posture (11/12/21) Weakness (11/12/21) Physical Therapy Treatment Note PT-OP-A Visit Information Start: 10/16/21 17:39 Freq: Status: Active Protocol: Document 11/12/21 09:51 [facility] (Rec: 11/12/21 12:17 [facility] [id number]) Out-Patient Physical Therapy Visit Information Visit Information Visit Type Treatment Note Visit Note 03/30 Visit Start Time 09:50 Visit Stop Time 10:40 Total Visit Minutes 50 Visit Number 7 Number of AGRICULTURAL CHEMIST Visits 0 PT-OP-B Current Condition Start: 10/16/21 17:39 Freq: Status: Active Protocol: Document 10/17/21 11:19 [facility] (Rec: 10/17/21 12:22 [facility] [id number]) Current Condition History of Current Condition Onset Date early Aug worsening Current Complaints R hip History of Current Condition Pt reports her R hip has bothered her at a low level for a long time. She was doing pilates for 3 years before [facility] and the instructor could always help her fix it, but MARCOS stopped pilates lessons. THis summer, she had tripped and fell landing on her hip. Notes she was riding ehr bike and she saw people ahead of her and paniked and lost her balance and fell on R hip. She did PT for 3 sessions at another place in [facility], but she did not feel like she got the specific instructions for the exercises. She feels like she got too ambitious w/walking and has had a set back. She has noticed walking up the stairs carrying about anything , the R hip will hurt. Pt reports she gets pain in lat R krueger and ant hip mostly along w/post. Pt reports after sitting, she is is stiff when trying to walk for first 10 steps. She thinks some of inc in pain is d/t lack of aerobic activity. Notes she has found posture is very important and she experiences less pain. She has been doing some exercises for hips (notes it is mostly back stuff). She says they feel good. Pt reports if she stands for 1.5 hours in the kitchen then she gets back pain but she can improve it with standing linnea pose. Pt reports hip gets frozen and lhas to stop very 1.5 [address]. Denies numbness or tingling. Pt reports she is doing very little walking. Yesterday, she walked into the post office then 1.5 blocks to a store then back to the car. She walked very mindfully ( watching posture & gait) and it really slows her down but hasn't been walking much. Pt has done the [place] of [employer] [place] ( [place]75 miles) and she had more achiness and calf twangs. It felt better once she sat in the car. She can feel like her leg is just a little more tender after. 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 She had acupuncture done this past weekend and it was helpful PT-OP-D Balance Start: 10/16/21 17:39 Freq: Status: Active Protocol: Document 10/17/21 11:19 [facility] (Rec: 10/17/21 12:22 [facility] [id number]) Balance Tests Single Limb Standing Single Limb- Right 1 sec Single Limb- Left 1 sec PT-OP-F Manual Assessment Start: 10/16/21 17:39 Freq: Status: Active Protocol: Document 10/17/21 11:19 [facility] (Rec: 10/17/21 12:22 [facility] [id number]) Manual Assessments Joint Mobility Assessment Joint Mobility Assessment R slightly higher iliac crest, equal greater trochanter PT-OP-G Mobility & Gait Start: 10/16/21 17:39 Freq: Status: Active Protocol: Document 10/17/21 11:19 [facility] (Rec: 10/17/21 12:22 [facility] [id number]) OP Gait Assessment Comments Gait Comments Pt significant L hip drop when WB on R w/very stiff movement and dec WB time on RLE and dec push off B PT-OP-J Posture/Palpation/Skin Start: 10/16/21 17:39 Freq: Status: Active Protocol: Document 10/17/21 11:19 [facility] (Rec: 10/17/21 12:22 [facility] [id number]) Posture Evaluation [facility] Postural Classification System [facility] Postural Classifications Posterior/Anterior Vertebral Compression Test 1 Lumbar Protective Mechanism Left AP 0 Lumbar Protective Mechanism Right AP 0 Lumbar Protective Mechanism Left PA 0 Lumbar Protective Mechanism Right PA 0 Comments Posture Comments L foot pronation, IR B femurs, R shoulder lower, SB R, R hip shear PT-OP-L Special Tests Start: 10/16/21 17:39 Freq: Status: Active Protocol: Document 10/17/21 11:19 [facility] (Rec: 10/17/21 12:22 [facility] [id number]) Special Tests Lumbar Spine Special Tests Slump Test Results positive R Straight Leg Raise Test Results positive R PT-OP-M Strength Start: 10/16/21 17:39 Freq: Status: Active Protocol: Document 10/17/21 11:19 [facility] (Rec: 10/17/21 12:22 [facility] [id number]) Hip Strength Hip Manual Muscle Testing Right Flexion (L2) 3+ Fair+ Extension (S1) 3+ Fair+ Abduction 3+ Fair+ Adduction 3+ Fair+ External Rotation 3+ Fair+ Internal Rotation 3+ Fair+ Comments tingly in R foot w/add; pain w /ext Left Flexion (L2) 3+ Fair+ Abduction 3+ Fair+ Adduction 4 Good External Rotation 3+ Fair+ Internal Rotation 3+ Fair+ Knee Strength Knee Manual Muscle Testing Right Flexion (S2) 4+ Good+ Extension (L3) 4+ Good+ Left Flexion (S2) 4+ Good+ Extension (L3) 4+ Good+ Ankle/Foot Strength Ankle and Foot Manual Muscle Testing Right Dorsiflexion (L4) 4+ Good+ Plantarflexion (S1) 5 Normal Comments can do 20 heel raises but twang in R lat thigh and calf Left Dorsiflexion (L4) 4+ Good+ Plantarflexion (S1) 4- Good- Comments 12 heel raises stop d/t weakness PT-OP-Q Treatments Start: 10/16/21 17:39 Freq: Status: Active Protocol: Document 11/12/21 09:51 [facility] (Rec: 11/12/21 12:17 [facility] [id number]) Therapeutic Exercises Supine Exercises stretch Supine Exercise Name piriformis knee to opp chest Side right Reps/Minutes 30 sec x2 core Supine Exercise Name alt march w/core engagement Side bilateral Reps/Minutes 10 Comments pt w/legs straighter Standing Exercises hip ext Side bilateral Reps/Minutes 6 Comments stopped d/t discomfort in R hip w/WB hip abd Side bilateral Equipment Used counter Reps/Minutes 2x6 Comments cues for posture Other Exercises quadruped Other Exercise Name alt hip ext Side bilateral Reps/Minutes 12 Comments max cues for core and no pelvis lean Gait Training Gait Activity gait Comments cues for hitting more fwd on heel vs heavy heel strike w/ slap. working on smaller steps and edu why Manual Therapy Treatment Soft Tissue Mobilization piriformis Body Location R Mobilization Type Sustained Pressure Intensity/Depth Moderate Comments w/hip IR/ER Joint Mobilizations sacrum Joint R UPA & R caudal glide FM innominate Direction r caudal glide, R ER FM, R IR FM hip Joint R Direction hip on axis FM PT-OP-R Modalities Start: 10/16/21 17:39 Freq: Status: Active Protocol: Document 11/12/21 09:51 [facility] (Rec: 11/12/21 12:17 [facility] [id number]) Hot Pack/Cold Pack Treatment Cold Pack Location R hip ant & post Patient Position Hooklying Treatment Duration (minutes) 10 PT-OP-T Assessment and Plan Start: 10/16/21 17:39 Freq: Status: Active Protocol: Document 11/12/21 09:51 [facility] (Rec: 11/12/21 12:17 [facility] [id number]) Physical Therapy Assessment Goals skiing Operational Review Sergeant Goal (LTG) Pt will be able to return to cross country skiing and biking w/o inc pain. LTG Duration 12/15/21 transitions Penitentiary Goal (LTG) Pt will be able to do sit to stand from chair w/o inc hip pain intially. LTG Duration 12/15/21 walking Short Term Goal (STG) Pt will be able to walk at least 1.5 mile w/o inc pain greater than 2/10. STG Duration 11/17/21 [facility]iary Goal (LTG) Pt will be able to go for longer walks w/hills w/o inc pain greater than 2/10 LTG Duration 12/15/21 strength Short Term Goal (STG) Pt will be indep w/HEP STG Duration 11/17/21 [facility] Goal (LTG) Pt will score at least 5/5 B on LE strength tests and 3/5 on LPM in all planes to imrpove hip and core stability in order to improve pt's ability to remain active w/o pain. LTG Duration 12/15/21 balance Short Term Goal (STG) Pt will be able to do SLS for 5 sec B to show improved balance. STG Duration 11/17/21 Operational Review Sergeant Goal (LTG) Pt will be able to do SLS 10 sec B w/o lat hip shear or opposite hip drop to show improved balance. LTG Duration 12/15/21 Assessment Summary Assessment Pt still required cues w/ standing hip abd for form. She was able to progress to further straightened legs for & was able to do quadruped hip ext but did need a lot of cueing for this. When cued for less heel strike and smaller steps, less painf ro gait. Physical Therapy Plan Frequency and Duration Frequency of Treatment 2x/Week Duration of Treatment 2 months Plan of Care Start Date 10/17/21 Plan of Care End Date 12/15/21 Next Visit Focus/Plan Next Note Type Treatment Note Next Visit Plan review quadruped hip ext & standing hip abd, cont to work hip and stability & mobility
--- NOTE | 2021-11-19 11:20 | PT.OTN ---
Current Diagnoses Sciatica, right side (11/19/21) Myalgia, other site (11/19/21) Difficulty in walking, not elsewhere classified (11/19/21) Abnormal posture (11/19/21) Weakness (11/19/21) Physical Therapy Treatment Note PT-OP-A Visit Information Start: 10/16/21 17:39 Freq: Status: Active Protocol: Document 11/19/21 10:36 [facility] (Rec: 11/19/21 11:19 [facility] [id number]) Out-Patient Physical Therapy Visit Information Visit Information Visit Type Treatment Note Visit Note 04/30 Visit Start Time 09:49 Visit Stop Time 10:44 Total Visit Minutes 55 Visit Number 8 Number of BOX ORDER PERSON Visits 0 PT-OP-B Current Condition Start: 10/16/21 17:39 Freq: Status: Active Protocol: Document 10/17/21 11:19 [facility] (Rec: 10/17/21 12:22 [facility] [id number]) Current Condition History of Current Condition Onset Date early Aug worsening Current Complaints R hip History of Current Condition Pt reports her R hip has bothered her at a low level for a long time. She was doing pilates for 3 years before [facility] and the instructor could always help her fix it, but MARCOS stopped pilates lessons. THis summer, she had tripped and fell landing on her hip. Notes she was riding ehr bike and she saw people ahead of her and paniked and lost her balance and fell on R hip. She did PT for 3 sessions at another place in [facility], but she did not feel like she got the specific instructions for the exercises. She feels like she got too ambitious w/walking and has had a set back. She has noticed walking up the stairs carrying about anything , the R hip will hurt. Pt reports she gets pain in lat R krueger and ant hip mostly along w/post. Pt reports after sitting, she is is stiff when trying to walk for first 10 steps. She thinks some of inc in pain is d/t lack of aerobic activity. Notes she has found posture is very important and she experiences less pain. She has been doing some exercises for hips (notes it is mostly back stuff). She says they feel good. Pt reports if she stands for 1.5 hours in the kitchen then she gets back pain but she can improve it with standing linnea pose. Pt reports hip gets frozen and lhas to stop very 1.5 [address]. Denies numbness or tingling. Pt reports she is doing very little walking. Yesterday, she walked into the post office then 1.5 blocks to a store then back to the car. She walked very mindfully ( watching posture & gait) and it really slows her down but hasn't been walking much. Pt has [place] of [employer] [place] ( [place]75 miles) and she had more achiness and calf twangs. It felt better once she sat in the car. She can feel like her leg is just a little more tender after. 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 She feels like things are starting to set in. She feels like she saw good progress w/PT last week & acupuncture. PT-OP-D Balance Start: 10/16/21 17:39 Freq: Status: Active Protocol: Document 10/17/21 11:19 [facility] (Rec: 10/17/21 12:22 [facility] [id number]) Balance Tests Single Limb Standing Single Limb- Right 1 sec Single Limb- Left 1 sec PT-OP-F Manual Assessment Start: 10/16/21 17:39 Freq: Status: Active Protocol: Document 10/17/21 11:19 [facility] (Rec: 10/17/21 12:22 [facility] [id number]) Manual Assessments Joint Mobility Assessment Joint Mobility Assessment R slightly higher iliac crest, equal greater trochanter PT-OP-G Mobility & Gait Start: 10/16/21 17:39 Freq: Status: Active Protocol: Document 10/17/21 11:19 [facility] (Rec: 10/17/21 12:22 [facility] [id number]) OP Gait Assessment Comments Gait Comments Pt significant L hip drop when WB on R w/very stiff movement and dec WB time on RLE and dec push off B PT-OP-J Posture/Palpation/Skin Start: 10/16/21 17:39 Freq: Status: Active Protocol: Document 10/17/21 11:19 [facility] (Rec: 10/17/21 12:22 [facility] [id number]) Posture Evaluation [facility] Postural Classification System [facility] Postural Classifications Posterior/Anterior Vertebral Compression Test 1 Lumbar Protective Mechanism Left AP 0 Lumbar Protective Mechanism Right AP 0 Lumbar Protective Mechanism Left PA 0 Lumbar Protective Mechanism Right PA 0 Comments Posture Comments L foot pronation, IR B femurs, R shoulder lower, SB R, R hip shear PT-OP-L Special Tests Start: 10/16/21 17:39 Freq: Status: Active Protocol: Document 10/17/21 11:19 [facility] (Rec: 10/17/21 12:22 [facility] [id number]) Special Tests Lumbar Spine Special Tests Slump Test Results positive R Straight Leg Raise Test Results positive R PT-OP-M Strength Start: 10/16/21 17:39 Freq: Status: Active Protocol: Document 10/17/21 11:19 [facility] (Rec: 10/17/21 12:22 [facility] [id number]) Hip Strength Hip Manual Muscle Testing Right Flexion (L2) 3+ Fair+ Extension (S1) 3+ Fair+ Abduction 3+ Fair+ Adduction 3+ Fair+ External Rotation 3+ Fair+ Internal Rotation 3+ Fair+ Comments tingly in R foot w/add; pain w /ext Left Flexion (L2) 3+ Fair+ Abduction 3+ Fair+ Adduction 4 Good External Rotation 3+ Fair+ Internal Rotation 3+ Fair+ Knee Strength Knee Manual Muscle Testing Right Flexion (S2) 4+ Good+ Extension (L3) 4+ Good+ Left Flexion (S2) 4+ Good+ Extension (L3) 4+ Good+ Ankle/Foot Strength Ankle and Foot Manual Muscle Testing Right Dorsiflexion (L4) 4+ Good+ Plantarflexion (S1) 5 Normal Comments can do 20 heel raises but twang in R lat thigh and calf Left Dorsiflexion (L4) 4+ Good+ Plantarflexion (S1) 4- Good- Comments 12 heel raises stop d/t weakness PT-OP-Q Treatments Start: 10/16/21 17:39 Freq: Status: Active Protocol: Document 11/19/21 10:36 [facility] (Rec: 11/19/21 11:19 [facility] [id number]) Therapeutic Exercises Standing Exercises sit to stand Side bilateral Reps/Minutes 10; 6 w/levl 2 tband around thigh Comments no hands cues for slow hip abd Side bilateral Equipment Used counter Reps/Minutes 5 Comments much better form Other Exercises quadruped Other Exercise Name alt hip ext Side bilateral Reps/Minutes 10 Comments max cues for core and no pelvis lean Manual Therapy Treatment Soft Tissue Mobilization Glute Med Body Location R med & Max-sup, lat & inf borders & along sacrum Mobilization Type Myofascial Release,Sustained Pressure,Trigger Point Release Intensity/Depth Moderate Body Position Sidelying Joint Mobilizations sacrum Joint R UPA & R caudal glide FM innominate Direction R ER FM, R IR FM PT-OP-R Modalities Start: 10/16/21 17:39 Freq: Status: Active Protocol: Document 11/19/21 10:36 [facility] (Rec: 11/19/21 11:19 [facility] [id number]) Hot Pack/Cold Pack Treatment Hot Pack Location LB & R hip Patient Position Hooklying Treatment Duration (minutes) 15 Patient Tolerance Good PT-OP-T Assessment and Plan Start: 10/16/21 17:39 Freq: Status: Active Protocol: Document 11/19/21 10:36 [facility] (Rec: 11/19/21 11:19 [facility] [id number]) Physical Therapy Assessment Goals skiing [facility] Goal (LTG) Pt will be able to return to cross country skiing and biking w/o inc pain. LTG Duration 12/15/21 transitions [facility] Goal (LTG) Pt will be able to do sit to stand from chair w/o inc hip pain intially. LTG Duration 12/15/21 walking Short Term Goal (STG) Pt will be able to walk at least 1.5 mile w/o inc pain greater than 2/10. STG Duration 11/17/21 Pig Conveyor Operator Goal (LTG) Pt will be able to go for longer walks w/hills w/o inc pain greater than 2/10 LTG Duration 12/15/21 strength Short Term Goal (STG) Pt will be indep w/HEP STG Duration 11/17/21 Pig Conveyor Operator Goal (LTG) Pt will score at least 5/5 B on LE strength tests and 3/5 on LPM in all planes to imrpove hip and core stability in order to improve pt's ability to remain active w/o pain. LTG Duration 12/15/21 balance Short Term Goal (STG) Pt will be able to do SLS for 5 sec B to show improved balance. STG Duration 11/17/21 [facility] Goal (LTG) Pt will be able to do SLS 10 sec B w/o lat hip shear or opposite hip drop to show improved balance. LTG Duration 12/15/21 Assessment Summary Assessment Pt still required a lot of cues for quad hip ext for good form. She did improve by end of reps. Some knee pain noted that improved w/PT hand on lat knee w/sit to stands so tried band but pt reddy shave difficulty w/this. Physical Therapy Plan Frequency and Duration Frequency of Treatment 2x/Week Duration of Treatment 2 months Plan of Care Start Date 10/17/21 Plan of Care End Date 12/15/21 Next Visit Focus/Plan Next Note Type Treatment Note Next Visit Plan review quad hip ext, cont to work on hip mobility & stability & core stability
--- NOTE | 2021-11-26 12:15 | PT.OTN ---
Current Diagnoses Sciatica, right side (11/26/21) Myalgia, other site (11/26/21) Difficulty in walking, not elsewhere classified (11/26/21) Abnormal posture (11/26/21) Weakness (11/26/21) Physical Therapy Treatment Note PT-OP-A Visit Information Start: 10/16/21 17:39 Freq: Status: Active Protocol: Document 11/26/21 09:50 [facility] (Rec: 11/26/21 12:15 [facility] [id number]) Out-Patient Physical Therapy Visit Information Visit Information Visit Type Progress Note Visit Note 09/30 Visit Start Time 09:50 Visit Stop Time 10:45 Total Visit Minutes 55 Visit Number 9 Number of WAITER/WAITRESS CABIN CLASS Visits 0 PT-OP-B Current Condition Start: 10/16/21 17:39 Freq: Status: Active Protocol: Document 10/17/21 11:19 [facility] (Rec: 10/17/21 12:22 [facility] [id number]) Current Condition History of Current Condition Onset Date early Aug worsening Current Complaints R hip History of Current Condition Pt reports her R hip has bothered her at a low level for a long time. She was doing pilates for 3 years before [facility] and the instructor could always help her fix it, but MARCOS stopped pilates lessons. THis summer, she had tripped and fell landing on her hip. Notes she was riding ehr bike and she saw people ahead of her and paniked and lost her balance and fell on R hip. She did PT for 3 sessions at another place in [facility], but she did not feel like she got the specific instructions for the exercises. She feels like she got too ambitious w/walking and has had a set back. She has noticed walking up the stairs carrying about anything , the R hip will hurt. Pt reports she gets pain in lat R krueger and ant hip mostly along w/post. Pt reports after sitting, she is is stiff when trying to walk for first 10 steps. She thinks some of inc in pain is d/t lack of aerobic activity. Notes she has found posture is very important and she experiences less pain. She has been doing some exercises for hips (notes it is mostly back stuff). She says they feel good. Pt reports if she stands for 1.5 hours in the kitchen then she gets back pain but she can improve it with standing linnea pose. Pt reports hip gets frozen and lhas to stop very 1.5 [address]. Denies numbness or tingling. Pt reports she is doing very little walking. Yesterday, she walked into the post office then 1.5 blocks to a store then back to the car. She walked very mindfully ( watching posture & gait) and it really slows her down but hasn't been walking much. Pt has done the [place] of [employer] ( about .75 miles) and she had more achiness and calf twangs. It felt better once she sat in the car. She can feel like her leg is just a little more tender after. 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 (Rec: 11/26/21 12:15 [facility] [id number]) OP-PT Subjective Patient Comments Patient Comments Pt reports she can get out of a chair better but will feel stiff for only 2 steps vs 10 steps now. [place] 23 [place] she felt it after but not anymore this AM. PT-OP-D Balance Start: 10/16/21 17:39 Freq: Status: Active Protocol: Document 11/26/21 09:50 [facility] (Rec: 11/26/21 12:15 [facility] [id number]) Balance Tests Single Limb Standing Single Limb- Right 12 sec significant lat shear and after mult attempts of only 2 sec Single Limb- Left 2 sec PT-OP-F Manual Assessment Start: 10/16/21 17:39 Freq: Status: Active Protocol: Document 10/17/21 11:19 [facility] (Rec: 10/17/21 12:22 [facility] [id number]) Manual Assessments Joint Mobility Assessment Joint Mobility Assessment R slightly higher iliac crest, equal greater trochanter PT-OP-G Mobility & Gait Start: 10/16/21 17:39 Freq: Status: Active Protocol: Document 10/17/21 11:19 [facility] (Rec: 10/17/21 12:22 [facility] [id number]) OP Gait Assessment Comments Gait Comments Pt significant L hip drop when WB on R w/very stiff movement and dec WB time on RLE and dec push off B PT-OP-J Posture/Palpation/Skin Start: 10/16/21 17:39 Freq: Status: Active Protocol: Document 11/26/21 09:50 [facility] (Rec: 11/26/21 12:15 [facility] [id number]) Posture Evaluation [facility] Postural Classification System Lumbar Protective Mechanism Left AP 2 Lumbar Protective Mechanism Right AP 0 Lumbar Protective Mechanism Left PA 1 Lumbar Protective Mechanism Right PA 0 PT-OP-L Special Tests Start: 10/16/21 17:39 Freq: Status: Active Protocol: Document 10/17/21 11:19 [facility] (Rec: 10/17/21 12:22 [facility] [id number]) Special Tests Lumbar Spine Special Tests Slump Test Results positive R Straight Leg Raise Test Results positive R PT-OP-M Strength Start: 10/16/21 17:39 Freq: Status: Active Protocol: Document 11/26/21 09:50 [facility] (Rec: 11/26/21 12:15 [facility] [id number]) Hip Strength Hip Manual Muscle Testing Right Flexion (L2) 4- Good- Extension (S1) 3+ Fair+ Abduction 3+ Fair+ Adduction 4- Good- External Rotation 4 Good Internal Rotation 4+ Good+ Comments tingly in R foot w/add; pain w /ext Left Flexion (L2) 4- Good- Extension (S1) 4- Good- Abduction 4 Good Adduction 4 Good External Rotation 4 Good Internal Rotation 4+ Good+ Knee Strength Knee Manual Muscle Testing Right Flexion (S2) 5 Normal Extension (L3) 5 Normal Left Flexion (S2) 5 Normal Extension (L3) 5 Normal Ankle/Foot Strength Ankle and Foot Manual Muscle Testing Right Dorsiflexion (L4) 5 Normal Plantarflexion (S1) 5 Normal Comments can do 20 heel raises but does feel in calf and post hip and leg & difficulty keeping knee straight Left Dorsiflexion (L4) 5 Normal Plantarflexion (S1) 4- Good- Comments 10 heel raises stop d/t weakness PT-OP-Q Treatments Start: 10/16/21 17:39 Freq: Status: Active Protocol: Document 11/26/21 09:50 [facility] (Rec: 11/26/21 12:15 [facility] [id number]) Therapeutic Exercises Supine Exercises bridge Supine Exercise Name /november 1 leg at a time Side bilateral Reps/Minutes 3 Prone Exercises hip ext Side bilateral Reps/Minutes 10 Comments alt Standing Exercises side step Standing Exercise Name w/hands holding band & elbows at side Side bilateral Reps/Minutes 8 ea Comments 2 steps per rep Manual Therapy Treatment Soft Tissue Mobilization Glute Med Body Location R med & Max-sup, lat & inf borders & along sacrum Mobilization Type Myofascial Release,Sustained Pressure,Trigger Point Release Intensity/Depth Moderate Body Position Sidelying Joint Mobilizations sacrum Joint R UPA & R caudal glide FM hip Joint R Direction hip on axis FM Self-Care/Home Management Treatment Education Other Education verbal review of exercises & discussion w/pt of what they are for and why to cont w/PT. Discussed importance of glutes and core stability that she is lacking PT-OP-R Modalities Start: 10/16/21 17:39 Freq: Status: Active Protocol: Document 11/26/21 09:50 [facility] (Rec: 11/26/21 12:15 [facility] [id number]) Hot Pack/Cold Pack Treatment Hot Pack Location LB & R hip Patient Position Hooklying Treatment Duration (minutes) 15 Patient Tolerance Good PT-OP-T Assessment and Plan Start: 10/16/21 17:39 Freq: Status: Active Protocol: Document 11/26/21 09:50 [facility] (Rec: 11/26/21 12:15 [facility] [id number]) Physical Therapy Assessment Goals skiing Rehabilitation Worker Goal (LTG) Pt will be able to return to cross country skiing and biking w/o inc pain. 11/26-has not tried LTG Duration 01/26/22 transitions Rehabilitation Worker Goal (LTG) Pt will be able to do sit to stand from chair w/o inc hip pain intially. 11/26-just feels stiff now and only for 2 steps vs 10 steps LTG Duration 01/26/22 walking Short Term Goal (STG) Pt will be able to walk at least 1.5 mile w/o inc pain greater than 2/10. 11/26-has only tried up to 23 min STG Duration 12/27/21 [facility] Goal (LTG) Pt will be able to go for longer walks w/hills w/o inc pain greater than 2/10 LTG Duration 01/26/22 strength Short Term Goal (STG) Pt will be indep w/HEP STG Duration achieved progressing and adjustinga s needed Rehabilitation Worker Goal (LTG) Pt will score at least 5/5 B on LE strength tests and 3/5 on LPM in all planes to imrpove hip and core stability in order to improve pt's ability to remain active w/o pain. 11/26-improved but significant glute weakness still LTG Duration 01/26/22 balance Short Term Goal (STG) Pt will be able to do SLS for 5 sec B to show improved balance. 11/26-improved 2 sec L and 12 sec R STG Duration 12/27/21 Rehabilitation Worker Goal (LTG) Pt will be able to do SLS 10 sec B w/o lat hip shear or opposite hip drop to show improved balance. LTG Duration 01/26/22 Assessment Summary Assessment Pt has made good progress towards goals but is still limited in her mobility. She has significant R>L glute weakness which affects her gait pattern. She is improving w/hip ROM and mobility and does not have pain w/sit to stand as much as she used to. Cont PT to improve function. Physical Therapy Plan Frequency and Duration Frequency of Treatment 1-2x/Week Duration of Treatment 2 months Plan of Care Start Date 11/26/21 Plan of Care End Date 01/26/22 Therapeutic Interventions Therapeutic Interventions Aquatic Therapy,Balance Training,Gait Training,Home Exercise Program,Joint Mobilizations,Manual Therapy, Neuromuscular Re-education, Patient/Caregiver Education, Self-Care/Home Management,Soft Tissue Mobilization,Taping, Therapeutic Activities, Therapeutic Exercises Modalities Cold Pack/Ice Massage,Electric Stimulation,Hot Packs, Infrared Therapy,Ultrasound Next Visit Focus/Plan Next Note Type Treatment Note Next Visit Plan review new HEP, cont to work on hip mobility & stability & core stability
--- NOTE | 2021-11-26 12:15 | PT.OPPOC ---
Physical, Occupational & Speech Therapy At [facility] Current Diagnoses Sciatica, right side (11/26/21) Myalgia, other site (11/26/21) Difficulty in walking, not elsewhere classified (11/26/21) Abnormal posture (11/26/21) Weakness (11/26/21) Visit Care Team Role Provider Type Ady Dow DO Attending Provider Non-Staff Family Provider Primary Care Provider Referring Provider Specialty: Medical Address: [address] [place] [address] [address], [place], [address] Email: Plan Of Care PT-OP-T Assessment and Plan Start: 10/16/21 17:39 Freq: Status: Active Protocol: Document 11/26/21 09:50 [facility] (Rec: 11/26/21 12:15 [facility] [id number]) Physical Therapy Assessment Goals skiing Longterm Goal (LTG) Pt will be able to return to cross country skiing and biking w/o inc pain. 11/26-has not tried LTG Duration 01/26/22 transitions Orchid Grower Goal (LTG) Pt will be able to do sit to stand from chair w/o inc hip pain intially. 11/26-just feels stiff now and only for 2 steps vs 10 steps LTG Duration 01/26/22 walking Short Term Goal (STG) Pt will be able to walk at least 1.5 mile w/o inc pain greater than 2/10. 11/26-has only tried up to 23 min STG Duration 12/27/21 Orchid Grower Goal (LTG) Pt will be able to go for longer walks w/hills w/o inc pain greater than 2/10 LTG Duration 01/26/22 strength Short Term Goal (STG) Pt will be indep w/HEP STG Duration achieved progressing and adjustinga s needed Longterm Goal (LTG) Pt will score at least 5/5 B on LE strength tests and 3/5 on LPM in all planes to imrpove hip and core stability in order to improve pt's ability to remain active w/o pain. 11/26-improved but significant glute weakness still LTG Duration 01/26/22 balance Short Term Goal (STG) Pt will be able to do SLS for 5 sec B to show improved balance. 11/26-improved 2 sec L and 12 sec R STG Duration 12/27/21 Longterm Goal (LTG) Pt will be able to do SLS 10 sec B w/o lat hip shear or opposite hip drop to show improved balance. LTG Duration 01/26/22 Assessment Summary Assessment Pt has made good progress towards goals but is still limited in her mobility. She has significant R>L glute weakness which affects her gait pattern. She is improving w/hip ROM and mobility and does not have pain w/sit to stand as much as she used to. Cont PT to improve function. Physical Therapy Plan Frequency and Duration Frequency of Treatment 1-2x/Week Duration of Treatment 2 months Plan of Care Start Date 11/26/21 Plan of Care End Date 01/26/22 Therapeutic Interventions Therapeutic Interventions Aquatic Therapy,Balance Training,Gait Training,Home Exercise Program,Joint Mobilizations,Manual Therapy, Neuromuscular Re-education, Patient/Caregiver Education, Self-Care/Home Management,Soft Tissue Mobilization,Taping, Therapeutic Activities, Therapeutic Exercises Modalities Cold Pack/Ice Massage,Electric Stimulation,Hot Packs, Infrared Therapy,Ultrasound Next Visit Focus/Plan Next Note Type Treatment Note Next Visit Plan review new HEP, cont to work on hip mobility & stability & core stability Plan of Care Dates Plan of Care Start Date 11/26/21 Plan of Care End Date 01/26/22 Electronically Signed by: Nani Sesay, PT 11/26/21 1444 Please Sign and Return: I have reviewed this Plan of Care and certify that the skilled therapy services above are required to meet the patient?s needs. Physician Signature Date Printed Name and Credentials Clinical Instructor Signature Printed Name and Credentials
--- NOTE | 2021-12-10 12:27 | PT.OTN ---
Current Diagnoses Sciatica, right side (12/10/21) Myalgia, other site (12/10/21) Difficulty in walking, not elsewhere classified (12/10/21) Abnormal posture (12/10/21) Weakness (12/10/21) Physical Therapy Treatment Note PT-OP-A Visit Information Start: 10/16/21 17:39 Freq: Status: Active Protocol: Document 12/10/21 10:38 [facility] (Rec: 12/10/21 11:22 [facility] [id number]) Out-Patient Physical Therapy Visit Information Visit Information Visit Type Treatment Note Visit Note 10/31 Visit Start Time 10:37 Visit Stop Time 11:15 Total Visit Minutes 38 Visit Number 10 Number of BARREL INSPECTOR TIGHT Visits 0 PT-OP-B Current Condition Start: 10/16/21 17:39 Freq: Status: Active Protocol: Document 10/17/21 11:19 [facility] (Rec: 10/17/21 12:22 [facility] [id number]) Current Condition History of Current Condition Onset Date early Aug worsening Current Complaints R hip History of Current Condition Pt reports her R hip has bothered her at a low level for a long time. She was doing pilates for 3 years before [facility] and the instructor could always help her fix it, but [facility]ARC[facility] stopped pilates lessons. THis summer, she had tripped and fell landing on her hip. Notes she was riding ehr bike and she saw people ahead of her and paniked and lost her balance and fell on R hip. She did PT for 3 sessions at [address] place in [facility], but she did not feel like she got the specific instructions for the exercises. She feels like she got too ambitious w/walking and has had a set back. She has noticed walking up the stairs carrying about anything , the R hip will hurt. Pt reports she gets pain in lat R krueger and ant hip mostly along w/post. Pt reports after sitting, she is is stiff when trying to walk for first 10 steps. She thinks some of inc in pain is d/t lack of aerobic activity. Notes she has found posture is very important and she experiences less pain. She has been doing some exercises for hips (notes it is mostly back stuff). She says they feel good. Pt reports if she stands for 1.5 hours in the kitchen then she gets back pain but she can improve it with standing linnea pose. Pt reports hip gets frozen and lhas to stop very 1.5 [address]. Denies numbness or tingling. Pt reports she is doing very little walking. Yesterday, she walked into the post office then 1.5 blocks to a store then back to the car. She walked very mindfully ( watching posture & gait) and it really slows her down but hasn't been walking much. Pt has done [place] ( [place] miles) and she had more achiness and calf twangs. It felt better once she sat in the car. She can feel like her leg is just a little more tender after. 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 (Rec: 12/10/21 11:22 [facility] [id number]) OP-PT Subjective Patient Comments Patient Comments Pt reports she has been walking around the block which involes hills. She has a new mattress about a week ago and that has been helpful. Pt reports after last session she had a lot of pain and was having trouble sleeping so she was having pain from front of back to chest and went to ER and they determined not heart related PT-OP-D Balance Start: 10/16/21 17:39 Freq: Status: Active Protocol: Document 11/26/21 09:50 [facility] (Rec: 11/26/21 12:15 [facility] [id number]) Balance Tests Single Limb Standing Single Limb- Right 12 sec significant lat shear and after mult attempts of only 2 sec Single Limb- Left 2 sec PT-OP-F Manual Assessment Start: 10/16/21 17:39 Freq: Status: Active Protocol: Document 10/17/21 11:19 [facility] (Rec: 10/17/21 12:22 [facility] [id number]) Manual Assessments Joint Mobility Assessment Joint Mobility Assessment R slightly higher iliac crest, equal greater trochanter PT-OP-G Mobility & Gait Start: 10/16/21 17:39 Freq: Status: Active Protocol: Document 10/17/21 11:19 [facility] (Rec: 10/17/21 12:22 [facility] [id number]) OP Gait Assessment Comments Gait Comments Pt significant L hip drop when WB on R w/very stiff movement and dec WB time on RLE and dec push off B PT-OP-J Posture/Palpation/Skin Start: 10/16/21 17:39 Freq: Status: Active Protocol: Document 11/26/21 09:50 [facility] (Rec: 11/26/21 12:15 [facility] [id number]) Posture Evaluation [facility] Postural Classification System Lumbar Protective Mechanism Left AP 2 Lumbar Protective Mechanism Right AP 0 Lumbar Protective Mechanism Left PA 1 Lumbar Protective Mechanism Right PA 0 PT-OP-L Special Tests Start: 10/16/21 17:39 Freq: Status: Active Protocol: Document 10/17/21 11:19 [facility] (Rec: 10/17/21 12:22 [facility] [id number]) Special Tests Lumbar Spine Special Tests Slump Test Results positive R Straight Leg Raise Test Results positive R PT-OP-M Strength Start: 10/16/21 17:39 Freq: Status: Active Protocol: Document 11/26/21 09:50 [facility] (Rec: 11/26/21 12:15 [facility] [id number]) Hip Strength Hip Manual Muscle Testing Right Flexion (L2) 4- Good- Extension (S1) 3+ Fair+ Abduction 3+ Fair+ Adduction 4- Good- External Rotation 4 Good Internal Rotation 4+ Good+ Comments tingly in R foot w/add; pain w /ext Left Flexion (L2) 4- Good- Extension (S1) 4- Good- Abduction 4 Good Adduction 4 Good External Rotation 4 Good Internal Rotation 4+ Good+ Knee Strength Knee Manual Muscle Testing Right Flexion (S2) 5 Normal Extension (L3) 5 Normal Left Flexion (S2) 5 Normal Extension (L3) 5 Normal Ankle/Foot Strength Ankle and Foot Manual Muscle Testing Right Dorsiflexion (L4) 5 Normal Plantarflexion (S1) 5 Normal Comments can do 20 heel raises but does feel in calf and post hip and leg & difficulty keeping knee straight Left Dorsiflexion (L4) 5 Normal Plantarflexion (S1) 4- Good- Comments 10 heel raises stop d/t weakness PT-OP-Q Treatments Start: 10/16/21 17:39 Freq: Status: Active Protocol: Document 12/10/21 10:38 [facility] (Rec: 12/10/21 11:22 [facility] [id number]) Therapeutic Activity Therapeutic Activity seated Comments 1. seated posture working on unsupported sitting 2. working on sit to information clerk brokerage different pelvis positions to show pt importance of being in neutral 3. sit to stand w/o hands working on slow controlled to/ from mat x12 Manual Therapy Treatment Soft Tissue Mobilization thigh Body Location R ITB Mobilization Type Rolling,Strumming Intensity/Depth Moderate Body Position Sidelying Glute Med Body Location R med & Max-sup, lat & inf borders Mobilization Type Myofascial Release,Sustained Pressure,Trigger Point Release Intensity/Depth Moderate Body Position Sidelying Self-Care/Home Management Treatment Education Other Education edu to pt re: slowing exercises now. for sit to stand going slower and sidesteps making sure no turn and core engaged PT-OP-R Modalities Start: 10/16/21 17:39 Freq: Status: Active Protocol: Document 11/26/21 09:50 [facility] (Rec: 11/26/21 12:15 [facility] [id number]) Hot Pack/Cold Pack Treatment Hot Pack Location LB & R hip Patient Position Hooklying Treatment Duration (minutes) 15 Patient Tolerance Good PT-OP-T Assessment and Plan Start: 10/16/21 17:39 Freq: Status: Active Protocol: Document 12/10/21 10:38 [facility] (Rec: 12/10/21 11:22 [facility] [id number]) Physical Therapy Assessment Goals skiing Control Room Technician Goal (LTG) Pt will be able to return to cross country skiing and biking w/o inc pain. 11/26-has not tried LTG Duration 01/26/22 transitions Senior Living Goal (LTG) Pt will be able to do sit to stand from chair w/o inc hip pain intially. 11/26-just feels stiff now and only for 2 steps vs 10 steps LTG Duration 01/26/22 walking Short Term Goal (STG) Pt will be able to walk at least 1.5 mile w/o inc pain greater than 2/10. 11/26-has only tried up to 23 min STG Duration 12/27/21 Senior Living Goal (LTG) Pt will be able to go for longer walks w/hills w/o inc pain greater than 2/10 LTG Duration 01/26/22 strength Short Term Goal (STG) Pt will be indep w/HEP STG Duration achieved progressing and adjustinga s needed Control Room Technician Goal (LTG) Pt will score at least 5/5 B on LE strength tests and 3/5 on LPM in all planes to imrpove hip and core stability in order to improve pt's ability to remain active w/o pain. 11/26-improved but significant glute weakness still LTG Duration 01/26/22 balance Short Term Goal (STG) Pt will be able to do SLS for 5 sec B to show improved balance. 11/26-improved 2 sec L and 12 sec R STG Duration 12/27/21 Control Room Technician Goal (LTG) Pt will be able to do SLS 10 sec B w/o lat hip shear or opposite hip drop to show improved balance. LTG Duration 01/26/22 Assessment Summary Assessment Pt did well today and was able to improve sit to stand transitions. She is encouraged to inc walking with small increments to make sure pain is still less. She is noting much less pain otherwise and has been able to do hills. Physical Therapy Plan Frequency and Duration Frequency of Treatment 1-2x/Week Duration of Treatment 2 months Plan of Care Start Date 11/26/21 Plan of Care End Date 01/26/22 Next Visit Focus/Plan Next Note Type Treatment Note Next Visit Plan review new HEP, cont to work on hip mobility & stability & core stability
--- NOTE | 2021-12-17 12:15 | PT.OTN ---
Current Diagnoses Sciatica, right side (12/17/21) Myalgia, other site (12/17/21) Difficulty in walking, not elsewhere classified (12/17/21) Abnormal posture (12/17/21) Weakness (12/17/21) Physical Therapy Treatment Note PT-OP-A Visit Information Start: 10/16/21 17:39 Freq: Status: Active Protocol: Document 12/17/21 10:28 [facility] (Rec: 12/17/21 12:15 [facility] [id number]) Out-Patient Physical Therapy Visit Information Visit Information Visit Type Treatment Note Visit Note 11/28 Visit Start Time 10:30 Visit Stop Time 11:15 Total Visit Minutes 45 Visit Number 11 Number of CENTERLESS GRINDER SET UP OPERATOR Visits 0 PT-OP-B Current Condition Start: 10/16/21 17:39 Freq: Status: Active Protocol: Document 10/17/21 11:19 [facility] (Rec: 10/17/21 12:22 [facility] [id number]) Current Condition History of Current Condition Onset Date early Aug worsening Current Complaints R hip History of Current Condition Pt reports her R hip has bothered her at a low level for a long time. She was doing pilates for 3 years before [facility] and the instructor could always help her fix it, but [facility]ARC[facility] stopped pilates lessons. THis summer, she had tripped and fell landing on her hip. Notes she was riding ehr bike and she saw people ahead of her and paniked and lost her balance and fell on R hip. She did PT for 3 sessions at another place in [facility], but she did not feel like she got the specific instructions for the exercises. She feels like she got too ambitious w/walking and has had a set back. She has noticed walking up the stairs carrying about anything , the R hip will hurt. Pt reports she gets pain in lat R krueger and ant hip mostly along w/post. Pt reports after sitting, she is is stiff when trying to walk for first 10 steps. She thinks some of inc in pain is d/t lack of aerobic activity. Notes she has found posture is very important and she experiences less pain. She has been doing some exercises for hips (notes it is mostly back stuff). She says they feel good. Pt reports if she stands for 1.5 hours in the kitchen then she gets back pain but she can improve it with standing linnea pose. Pt reports hip gets frozen and lhas to stop very 1.5 hrs [address]. Denies numbness or tingling. Pt reports she is doing very little walking. Yesterday, she walked into the post office then 1.5 blocks to a store then back to the car. She walked very mindfully ( watching posture & gait) and it really slows her down but hasn't been walking much. Pt [place] ( [place]) and she had more achiness and calf twangs. It felt better once she sat in the car. She can feel like her leg is just a little more tender after. 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 (Rec: 12/17/21 12:15 [facility] [id number]) OP-PT Subjective Patient Comments Patient Comments pt reports walking 1.4 miles without pain and has walked 5 days a week PT-OP-D Balance Start: 10/16/21 17:39 Freq: Status: Active Protocol: Document 12/17/21 10:28 [facility] (Rec: 12/17/21 12:15 [facility] [id number]) Balance Tests Single Limb Standing Single Limb- Right 5 sec no lat shear Single Limb- Left 5 sec no lat shear PT-OP-F Manual Assessment Start: 10/16/21 17:39 Freq: Status: Active Protocol: Document 10/17/21 11:19 [facility] (Rec: 10/17/21 12:22 [facility] [id number]) Manual Assessments Joint Mobility Assessment Joint Mobility Assessment R slightly higher iliac crest, equal greater trochanter PT-OP-G Mobility & Gait Start: 10/16/21 17:39 Freq: Status: Active Protocol: Document 10/17/21 11:19 [facility] (Rec: 10/17/21 12:22 [facility] [id number]) OP Gait Assessment Comments Gait Comments Pt significant L hip drop when WB on R w/very stiff movement and dec WB time on RLE and dec push off B PT-OP-J Posture/Palpation/Skin Start: 10/16/21 17:39 Freq: Status: Active Protocol: Document 12/17/21 10:28 [facility] (Rec: 12/17/21 12:15 [facility] [id number]) Posture Evaluation [facility] Postural Classification System Lumbar Protective Mechanism Left AP 3 Lumbar Protective Mechanism Right AP 3 Lumbar Protective Mechanism Left PA 2 Lumbar Protective Mechanism Right PA 2 PT-OP-L Special Tests Start: 10/16/21 17:39 Freq: Status: Active Protocol: Document 10/17/21 11:19 [facility] (Rec: 10/17/21 12:22 [facility] [id number]) Special Tests Lumbar Spine Special Tests Slump Test Results positive R Straight Leg Raise Test Results positive R PT-OP-M Strength Start: 10/16/21 17:39 Freq: Status: Active Protocol: Document 12/17/21 10:28 [facility] (Rec: 12/17/21 12:15 [facility] [id number]) Hip Strength Hip Manual Muscle Testing Right Flexion (L2) 4+ Good+ Extension (S1) 4- Good- Abduction 4- Good- Adduction 4 Good External Rotation 5 Normal Internal Rotation 5 Normal Comments tingly in R foot w/add; pain w /ext Left Flexion (L2) 5 Normal Extension (S1) 4 Good Abduction 4+ Good+ Adduction 5 Normal External Rotation 5 Normal Internal Rotation 5 Normal Knee Strength Knee Manual Muscle Testing Right Flexion (S2) 5 Normal Extension (L3) 5 Normal Left Flexion (S2) 5 Normal Extension (L3) 5 Normal Ankle/Foot Strength Ankle and Foot Manual Muscle Testing Right Dorsiflexion (L4) 5 Normal Plantarflexion (S1) 5 Normal Left Dorsiflexion (L4) 5 Normal Plantarflexion (S1) 4 Good Comments 12 heel raises stop d/t weakness PT-OP-Q Treatments Start: 10/16/21 17:39 Freq: Status: Active Protocol: Document 12/17/21 10:28 [facility] (Rec: 12/17/21 12:15 [facility] [id number]) Gym Equipment Shuttle Balance red clips Comments fwd: WBOS, NBOS, staggered stance B side: WBOS Manual Therapy Treatment Soft Tissue Mobilization thigh Body Location R TFL Mobilization Type Rolling,Strumming Intensity/Depth Moderate Body Position Sidelying Glute Med Body Location R med & Max-sup, lat & inf borders & pirifromis Mobilization Type Myofascial Release,Sustained Pressure,Trigger Point Release Intensity/Depth Moderate Body Position Sidelying Neuro Re-Education Treatment Balance Activities SLS Details B Comments 1. trials 2. sLS w/ ball roll under opp foot bosu Comments 1.alt november x30 B 2. squats on blue x15 3. step ups x12 B PT-OP-R Modalities Start: 10/16/21 17:39 Freq: Status: Active Protocol: Document 11/26/21 09:50 [facility] (Rec: 11/26/21 12:15 [facility] [id number]) Hot Pack/Cold Pack Treatment Hot Pack Location LB & R hip Patient Position Hooklying Treatment Duration (minutes) 15 Patient Tolerance Good PT-OP-T Assessment and Plan Start: 10/16/21 17:39 Freq: Status: Active Protocol: Document 12/17/21 10:28 [facility] (Rec: 12/17/21 12:15 [facility] [id number]) Physical Therapy Assessment Goals skiing Stud Driver Goal (LTG) Pt will be able to return to cross country skiing and biking w/o inc pain. 11/26-has not tried LTG Duration 01/26/22 transitions Halfway Goal (LTG) Pt will be able to do sit to stand from chair w/o inc hip pain intially. 11/26-just feels stiff now and only for 2 steps vs 10 steps LTG Duration 01/26/22 walking Short Term Goal (STG) Pt will be able to walk at least 1.5 mile w/o inc pain greater than 2/10. 11/26-has only tried up to 23 min STG Duration 12/27/21 Stud Driver Goal (LTG) Pt will be able to go for longer walks w/hills w/o inc pain greater than 2/10 LTG Duration 01/26/22 strength Short Term Goal (STG) Pt will be indep w/HEP STG Duration achieved progressing and adjustinga s needed Halfway Goal (LTG) Pt will score at least 5/5 B on LE strength tests and 3/5 on LPM in all planes to imrpove hip and core stability in order to improve pt's ability to remain active w/o pain. 11/26-improved but significant glute weakness still LTG Duration 01/26/22 balance Short Term Goal (STG) Pt will be able to do SLS for 5 sec B to show improved balance. 11/26-improved 2 sec L and 12 sec R STG Duration 12/27/21 Halfway Goal (LTG) Pt will be able to do SLS 10 sec B w/o lat hip shear or opposite hip drop to show improved balance. LTG Duration 01/26/22 Assessment Summary Assessment Pt was challenged by balance activities and noted some slight R hip tightness/ discomfort at the end so worked on manual to help losen up that area. She has impove significantly w/strength & in SLS she has less lat shear. Physical Therapy Plan Frequency and Duration Frequency of Treatment 1-2x/Week Duration of Treatment 2 months Plan of Care Start Date 11/26/21 Plan of Care End Date 01/26/22 Next Visit Focus/Plan Next Note Type Treatment Note Next Visit Plan cotn to work balancea nd standing stabiltiy & hip abd & ext strenth
--- NOTE | 2021-12-24 11:17 | PT.OTN ---
Current Diagnoses Sciatica, right side (12/24/21) Myalgia, other site (12/24/21) Difficulty in walking, not elsewhere classified (12/24/21) Abnormal posture (12/24/21) Weakness (12/24/21) Physical Therapy Treatment Note PT-OP-A Visit Information Start: 10/16/21 17:39 Freq: Status: Active Protocol: Document 12/24/21 10:27 [facility] (Rec: 12/24/21 11:17 [facility] [id number]) Out-Patient Physical Therapy Visit Information Visit Information Visit Type Treatment Note Visit Note 12/29 Visit Start Time 10:31 Visit Stop Time 11:15 Total Visit Minutes 44 Visit Number 12 Number of SCHOOL BOAT DRIVER Visits 0 PT-OP-B Current Condition Start: 10/16/21 17:39 Freq: Status: Active Protocol: Document 10/17/21 11:19 [facility] (Rec: 10/17/21 12:22 [facility] [id number]) Current Condition History of Current Condition Onset Date early Aug worsening Current Complaints R hip History of Current Condition Pt reports her R hip has bothered her at a low level for a long time. She was doing pilates for 3 years before [facility] and the instructor could always help her fix it, but MARCOS stopped pilates lessons. THis summer, she had tripped and fell landing on her hip. Notes she was riding ehr bike and she saw people ahead of her and paniked and lost her balance and fell on R hip. She did PT for 3 sessions [address] in [facility], but she did not feel like she got the specific instructions for the exercises. She feels like she got too ambitious w/walking and has had a set back. She has noticed walking up the stairs carrying about anything , the R hip will hurt. Pt reports she gets pain in lat R krueger and ant hip mostly along w/post. Pt reports after sitting, she is is stiff when trying to walk for first 10 steps. She thinks some of inc in pain is d/t lack of aerobic activity. Notes she has found posture is very important and she experiences less pain. She has been doing some exercises for hips (notes it is mostly back stuff). She says they feel good. Pt reports if she stands for 1.5 hours in the kitchen then she gets back pain but she can improve it with standing linnea pose. Pt reports hip gets frozen and lhas to stop very 1.5 [address]. Denies numbness or tingling. Pt reports she is doing very little walking. Yesterday, she walked into the post office then 1.5 blocks to a store then back to the car. She walked very mindfully ( watching posture & gait) and it really slows her down but hasn't been walking much. Pt [place] ( [place]) and she had more achiness and calf twangs. It felt better once she sat in the car. She can feel like her leg is just a little more tender after. 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 Just stiffness when getting up from sitting and very minor pain occ PT-OP-D Balance Start: 10/16/21 17:39 Freq: Status: Active Protocol: Document 12/17/21 10:28 [facility] (Rec: 12/17/21 12:15 [facility] [id number]) Balance Tests Single Limb Standing Single Limb- Right 5 sec no lat shear Single Limb- Left 5 sec no lat shear PT-OP-F Manual Assessment Start: 10/16/21 17:39 Freq: Status: Active Protocol: Document 10/17/21 11:19 [facility] (Rec: 10/17/21 12:22 [facility] [id number]) Manual Assessments Joint Mobility Assessment Joint Mobility Assessment R slightly higher iliac crest, equal greater trochanter PT-OP-G Mobility & Gait Start: 10/16/21 17:39 Freq: Status: Active Protocol: Document 10/17/21 11:19 [facility] (Rec: 10/17/21 12:22 [facility] [id number]) OP Gait Assessment Comments Gait Comments Pt significant L hip drop when WB on R w/very stiff movement and dec WB time on RLE and dec push off B PT-OP-J Posture/Palpation/Skin Start: 10/16/21 17:39 Freq: Status: Active Protocol: Document 12/17/21 10:28 [facility] (Rec: 12/17/21 12:15 [facility] [id number]) Posture Evaluation [facility] Postural Classification System Lumbar Protective Mechanism Left AP 3 Lumbar Protective Mechanism Right AP 3 Lumbar Protective Mechanism Left PA 2 Lumbar Protective Mechanism Right PA 2 PT-OP-L Special Tests Start: 10/16/21 17:39 Freq: Status: Active Protocol: Document 10/17/21 11:19 [facility] (Rec: 10/17/21 12:22 [facility] [id number]) Special Tests Lumbar Spine Special Tests Slump Test Results positive R Straight Leg Raise Test Results positive R PT-OP-M Strength Start: 10/16/21 17:39 Freq: Status: Active Protocol: Document 12/17/21 10:28 [facility] (Rec: 12/17/21 12:15 [facility] [id number]) Hip Strength Hip Manual Muscle Testing Right Flexion (L2) 4+ Good+ Extension (S1) 4- Good- Abduction 4- Good- Adduction 4 Good External Rotation 5 Normal Internal Rotation 5 Normal Comments tingly in R foot w/add; pain w /ext Left Flexion (L2) 5 Normal Extension (S1) 4 Good Abduction 4+ Good+ Adduction 5 Normal External Rotation 5 Normal Internal Rotation 5 Normal Knee Strength Knee Manual Muscle Testing Right Flexion (S2) 5 Normal Extension (L3) 5 Normal Left Flexion (S2) 5 Normal Extension (L3) 5 Normal Ankle/Foot Strength Ankle and Foot Manual Muscle Testing Right Dorsiflexion (L4) 5 Normal Plantarflexion (S1) 5 Normal Left Dorsiflexion (L4) 5 Normal Plantarflexion (S1) 4 Good Comments 12 heel raises stop d/t weakness PT-OP-Q Treatments Start: 10/16/21 17:39 Freq: Status: Active Protocol: Document 12/24/21 10:27 [facility] (Rec: 12/24/21 11:17 [facility] [id number]) Gym Equipment Shuttle Balance red clips Comments fwd: WBOS, NBOS, staggered stance B side: WBOS, NBOS Manual Therapy Treatment Soft Tissue Mobilization thigh Body Location R thigh Mobilization Type Myofascial Release Intensity/Depth Superficial Comments w/heel slides, knee ext, hip IR/ER Neuro Re-Education Treatment Balance Activities SLS Details B Comments 1. trials 2. sLS w/ ball roll under opp foot bosu Comments 1.alt november x30 B 2. squats on blue x15 3. step ups x12 B 4. fwd partial junge x10 B PT-OP-R Modalities Start: 10/16/21 17:39 Freq: Status: Active Protocol: Document 11/26/21 09:50 [facility] (Rec: 11/26/21 12:15 [facility] [id number]) Hot Pack/Cold Pack Treatment Hot Pack Location LB & R hip Patient Position Hooklying Treatment Duration (minutes) 15 Patient Tolerance Good PT-OP-T Assessment and Plan Start: 10/16/21 17:39 Freq: Status: Active Protocol: Document 12/24/21 10:27 [facility] (Rec: 12/24/21 11:17 [facility] [id number]) Physical Therapy Assessment Goals skiing Heel Seat Laster Goal (LTG) Pt will be able to return to cross country skiing and biking w/o inc pain. 11/26-has not tried LTG Duration 01/26/22 transitions [facility]iary Goal (LTG) Pt will be able to do sit to stand from chair w/o inc hip pain intially. 11/26-just feels stiff now and only for 2 steps vs 10 steps LTG Duration 01/26/22 walking Short Term Goal (STG) Pt will be able to walk at least 1.5 mile w/o inc pain greater than 2/10. 11/26-has only tried up to 23 min STG Duration 12/27/21 [facility]iary Goal (LTG) Pt will be able to go for longer walks w/hills w/o inc pain greater than 2/10 LTG Duration 01/26/22 strength Short Term Goal (STG) Pt will be indep w/HEP STG Duration achieved progressing and adjustinga s needed [facility]iary Goal (LTG) Pt will score at least 5/5 B on LE strength tests and 3/5 on LPM in all planes to imrpove hip and core stability in order to improve pt's ability to remain active w/o pain. 11/26-improved but significant glute weakness still LTG Duration 01/26/22 balance Short Term Goal (STG) Pt will be able to do SLS for 5 sec B to show improved balance. 11/26-improved 2 sec L and 12 sec R STG Duration 12/27/21 Heel Seat Laster Goal (LTG) Pt will be able to do SLS 10 sec B w/o lat hip shear or opposite hip drop to show improved balance. LTG Duration 01/26/22 Assessment Summary Assessment Pt improved w/balance performance and was able to do more difficult exercises today. She cont to advance well with her overall mboility . She had improved rotations w /less discomfort w/manual treatmetn. Physical Therapy Plan Frequency and Duration Frequency of Treatment 1-2x/Week Duration of Treatment 2 months Plan of Care Start Date 11/26/21 Plan of Care End Date 01/26/22 Next Visit Focus/Plan Next Note Type Treatment Note Next Visit Plan cont to work balance and standing stabiltiy & hip abd & ext strenth
--- NOTE | 2021-12-31 09:51 | PT.OTN ---
Current Diagnoses Sciatica, right side (12/31/21) Myalgia, other site (12/31/21) Difficulty in walking, not elsewhere classified (12/31/21) Abnormal posture (12/31/21) Weakness (12/31/21) Physical Therapy Treatment Note PT-OP-A Visit Information Start: 10/16/21 17:39 Freq: Status: Active Protocol: Document 12/31/21 08:45 [facility] (Rec: 12/31/21 09:51 [facility] [id number]) Out-Patient Physical Therapy Visit Information Visit Information Visit Type Treatment Note Visit Note 01/28 Visit Start Time 09:05 Visit Stop Time 09:45 Total Visit Minutes 40 Visit Number 13 Number of POLYSOMNOGRAPHY TECHNOLOGIST Visits 0 PT-OP-B Current Condition Start: 10/16/21 17:39 Freq: Status: Active Protocol: Document 10/17/21 11:19 [facility] (Rec: 10/17/21 12:22 [facility] [id number]) Current Condition History of Current Condition Onset Date early Aug worsening Current Complaints R hip History of Current Condition Pt reports her R hip has bothered her at a low level for a long time. She was doing pilates for 3 years before [facility] and the instructor could always help her fix it, but MARCOS stopped pilates lessons. THis summer, she had tripped and fell landing on her hip. Notes she was riding ehr bike and she saw people ahead of her and paniked and lost her balance and fell on R hip. She did PT for 3 sessions at another place in [facility], but she did not feel like she got the specific instructions for the exercises. She feels like she got too ambitious w/walking and has had a set back. She has noticed walking up the stairs carrying about anything , the R hip will hurt. Pt reports she gets pain in lat R krueger and ant hip mostly along w/post. Pt reports after sitting, she is is stiff when trying to walk for first 10 steps. She thinks some of inc in pain is d/t lack of aerobic activity. Notes she has found posture is very important and she experiences less pain. She has been doing some exercises for hips (notes it is mostly back stuff). She says they feel good. Pt reports if she stands for 1.5 hours in the kitchen then she gets back pain but she can improve it with standing linnea pose. Pt reports hip gets frozen and lhas to stop very 1.5 hrs [address]. Denies numbness or tingling. Pt reports she is doing very little walking. Yesterday, she walked into the post office then 1.5 blocks to a store then back to the car. She walked very mindfully ( watching posture & gait) and it really slows her down but hasn't been walking much. Pt has done the [place] of [employer] [place] ( [place] .75 miles) and she had more achiness and calf twangs. It felt better once she sat in the car. She can feel like her leg is just a little more tender after. 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 from Xrays taken Treatment Goals Patient/Caregiver Goals Be able to walk up to 5 miles and do hills, be able to ride her bike, be able to cross country ski PT-OP-C Subjective Start: 10/16/21 17:39 Freq: Status: Active Protocol: Document 12/31/21 08:45 [facility] (Rec: 12/31/21 09:51 [facility] [id number]) OP-PT Subjective Patient Comments Patient Comments Pt reports doing well with walking and balance activities at home PT-OP-D Balance Start: 10/16/21 17:39 Freq: Status: Active Protocol: Document 12/17/21 10:28 [facility] (Rec: 12/17/21 12:15 [facility] [id number]) Balance Tests Single Limb Standing Single Limb- Right 5 sec no lat shear Single Limb- Left 5 sec no lat shear PT-OP-F Manual Assessment Start: 10/16/21 17:39 Freq: Status: Active Protocol: Document 10/17/21 11:19 [facility] (Rec: 10/17/21 12:22 [facility] [id number]) Manual Assessments Joint Mobility Assessment Joint Mobility Assessment R slightly higher iliac crest, equal greater trochanter PT-OP-G Mobility & Gait Start: 10/16/21 17:39 Freq: Status: Active Protocol: Document 10/17/21 11:19 [facility] (Rec: 10/17/21 12:22 [facility] [id number]) OP Gait Assessment Comments Gait Comments Pt significant L hip drop when WB on R w/very stiff movement and dec WB time on RLE and dec push off B PT-OP-J Posture/Palpation/Skin Start: 10/16/21 17:39 Freq: Status: Active Protocol: Document 12/17/21 10:28 [facility] (Rec: 12/17/21 12:15 [facility] [id number]) Posture Evaluation [facility] Postural Classification System Lumbar Protective Mechanism Left AP 3 Lumbar Protective Mechanism Right AP 3 Lumbar Protective Mechanism Left PA 2 Lumbar Protective Mechanism Right PA 2 PT-OP-L Special Tests Start: 10/16/21 17:39 Freq: Status: Active Protocol: Document 10/17/21 11:19 [facility] (Rec: 10/17/21 12:22 [facility] [id number]) Special Tests Lumbar Spine Special Tests Slump Test Results positive R Straight Leg Raise Test Results positive R PT-OP-M Strength Start: 10/16/21 17:39 Freq: Status: Active Protocol: Document 12/17/21 10:28 [facility] (Rec: 12/17/21 12:15 [facility] [id number]) Hip Strength Hip Manual Muscle Testing Right Flexion (L2) 4+ Good+ Extension (S1) 4- Good- Abduction 4- Good- Adduction 4 Good External Rotation 5 Normal Internal Rotation 5 Normal Comments tingly in R foot w/add; pain w /ext Left Flexion (L2) 5 Normal Extension (S1) 4 Good Abduction 4+ Good+ Adduction 5 Normal External Rotation 5 Normal Internal Rotation 5 Normal Knee Strength Knee Manual Muscle Testing Right Flexion (S2) 5 Normal Extension (L3) 5 Normal Left Flexion (S2) 5 Normal Extension (L3) 5 Normal Ankle/Foot Strength Ankle and Foot Manual Muscle Testing Right Dorsiflexion (L4) 5 Normal Plantarflexion (S1) 5 Normal Left Dorsiflexion (L4) 5 Normal Plantarflexion (S1) 4 Good Comments 12 heel raises stop d/t weakness PT-OP-Q Treatments Start: 10/16/21 17:39 Freq: Status: Active Protocol: Document 12/31/21 08:45 [facility] (Rec: 12/31/21 09:51 [facility] [id number]) Gym Equipment Shuttle Balance red clips Comments fwd: WBOS, NBOS, staggered stance B side: WBOS, NBOS Manual Therapy Treatment Soft Tissue Mobilization Glute Med Body Location sup glute Mobilization Type Myofascial Release,Sustained Pressure,Trigger Point Release Intensity/Depth Moderate Body Position Sidelying Joint Mobilizations lumbar Joint L1 & L5 transverse L FM w/ant elevation Neuro Re-Education Treatment Balance Activities SLS Details B Comments . sLS w/ ball roll under opp foot bosu Comments 1.alt marchtaps x30 B 2. squats on blue x15 3. step ups x12 B 4. fwd partial lunge x10 B 5. balance w/head turns Self-Care/Home Management Treatment Education Other Education reminder to use tennis ball in glutes and leg if needed to rol out PT-OP-R Modalities Start: 10/16/21 17:39 Freq: Status: Active Protocol: Document 11/26/21 09:50 [facility] (Rec: 11/26/21 12:15 [facility] [id number]) Hot Pack/Cold Pack Treatment Hot Pack Location LB & R hip Patient Position Hooklying Treatment Duration (minutes) 15 Patient Tolerance Good PT-OP-T Assessment and Plan Start: 10/16/21 17:39 Freq: Status: Active Protocol: Document 12/31/21 08:45 [facility] (Rec: 12/31/21 09:51 [facility] [id number]) Physical Therapy Assessment Goals skiing [facility] Goal (LTG) Pt will be able to return to cross country skiing and biking w/o inc pain. 11/26-has not tried LTG Duration 01/26/22 transitions Roller Printing Supervisor Goal (LTG) Pt will be able to do sit to stand from chair w/o inc hip pain intially. 11/26-just feels stiff now and only for 2 steps vs 10 steps LTG Duration 01/26/22 walking Short Term Goal (STG) Pt will be able to walk at least 1.5 mile w/o inc pain greater than 2/10. 11/26-has only tried up to 23 min STG Duration 12/27/21 Roller Printing Supervisor Goal (LTG) Pt will be able to go for longer walks w/hills w/o inc pain greater than 2/10 LTG Duration 01/26/22 strength Short Term Goal (STG) Pt will be indep w/HEP STG Duration achieved progressing and adjustinga s needed [facility] Goal (LTG) Pt will score at least 5/5 B on LE strength tests and 3/5 on LPM in all planes to imrpove hip and core stability in order to improve pt's ability to remain active w/o pain. 11/26-improved but significant glute weakness still LTG Duration 01/26/22 balance Short Term Goal (STG) Pt will be able to do SLS for 5 sec B to show improved balance. 11/26-improved 2 sec L and 12 sec R STG Duration 12/27/21 [facility] Goal (LTG) Pt will be able to do SLS 10 sec B w/o lat hip shear or opposite hip drop to show improved balance. LTG Duration 01/26/22 Assessment Summary Assessment Pt cont to show improvements w /balance tasks in therapy. She showd less difficulty on unstable surfaces and got HEP written down to work on at home w/balance and edu to do by counter or stable surfaces Physical Therapy Plan Frequency and Duration Frequency of Treatment 1-2x/Week Duration of Treatment 2 months Plan of Care Start Date 11/26/21 Plan of Care End Date 01/26/22 Next Visit Focus/Plan Next Note Type Treatment Note Next Visit Plan cont to work balance and standing stabiltiy & hip abd & ext strenth
--- NOTE | 2022-01-14 11:50 | PT.OTN ---
Current Diagnoses Sciatica, right side (01/14/22) Myalgia, other site (01/14/22) Difficulty in walking, not elsewhere classified (01/14/22) Abnormal posture (01/14/22) Weakness (01/14/22) Physical Therapy Treatment Note PT-OP-A Visit Information Start: 10/16/21 17:39 Freq: Status: Active Protocol: Document 01/14/22 10:38 [facility] (Rec: 01/14/22 11:50 [facility] [id number]) Out-Patient Physical Therapy Visit Information Visit Information Visit Type Discharge Summary Visit Start Time 10:37 Visit Stop Time 11:15 Total Visit Minutes 38 Visit Number 14 Number of TARRING MACHINE OPERATOR Visits 0 PT-OP-B Current Condition Start: 10/16/21 17:39 Freq: Status: Active Protocol: Document 10/17/21 11:19 [facility] (Rec: 10/17/21 12:22 [facility] [id number]) Current Condition History of Current Condition Onset Date early Aug worsening Current Complaints R hip History of Current Condition Pt reports her R hip has bothered her at a low level for a long time. She was doing pilates for 3 years before Aleksandra and the instructor could always help her fix it, but ALEKSANDRA stopped pilates lessons. THis summer, she had tripped and fell landing on her hip. Notes she was riding ehr bike and she saw people ahead of her and paniked and lost her balance and fell on R hip. She did PT for [address] sessions [address] in [facility], but she did not feel like she got the specific instructions for the exercises. She feels like she got too ambitious w/walking and has had a set back. She has noticed walking up the stairs carrying about anything , the R hip will hurt. Pt reports she gets pain in lat R krueger and ant hip mostly along w/post. Pt reports after sitting, she is is stiff when trying to walk for first 10 steps. She thinks some of inc in pain is d/t lack of aerobic activity. Notes she has found posture is very important and she experiences less pain. She has been doing some exercises for hips (notes it is mostly back stuff). She says they feel good. Pt reports if she stands for 1.5 hours in the kitchen then she gets back pain but she can improve it with standing linnea pose. Pt reports hip gets frozen and lhas to stop very 1.5 [address]. Denies numbness or tingling. Pt reports she is doing very little walking. Yesterday, she walked into the post office then 1.5 blocks to a store then back to the car. She walked very mindfully ( watching posture & gait) and it really slows her down but hasn't been walking much. Pt has done the [place] ( about .75 miles) and she had more achiness and calf twangs. It felt better once she sat in the car. She can feel like her leg is just a little more tender after. 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 She has had a cold for 10 days so hasn't done much. Leg is feeling fine . PT-OP-D Balance Start: 10/16/21 17:39 Freq: Status: Active Protocol: Document 01/14/22 10:38 [facility] (Rec: 01/14/22 11:50 [facility] [id number]) Balance Tests Single Limb Standing Single Limb- Right 12 sec no lat shear Single Limb- Left 5 sec no lat shear PT-OP-F Manual Assessment Start: 10/16/21 17:39 Freq: Status: Active Protocol: Document 10/17/21 11:19 [facility] (Rec: 10/17/21 12:22 [facility] [id number]) Manual Assessments Joint Mobility Assessment Joint Mobility Assessment R slightly higher iliac crest, equal greater trochanter PT-OP-G Mobility & Gait Start: 10/16/21 17:39 Freq: Status: Active Protocol: Document 10/17/21 11:19 [facility] (Rec: 10/17/21 12:22 [facility] [id number]) OP Gait Assessment Comments Gait Comments Pt significant L hip drop when WB on R w/very stiff movement and dec WB time on RLE and dec push off B PT-OP-J Posture/Palpation/Skin Start: 10/16/21 17:39 Freq: Status: Active Protocol: Document 01/14/22 10:38 [facility] (Rec: 01/14/22 11:50 [facility] [id number]) Posture Evaluation [facility] Postural Classification System Lumbar Protective Mechanism Left AP 3 Lumbar Protective Mechanism Right AP 4 Lumbar Protective Mechanism Left PA 4 Lumbar Protective Mechanism Right PA 3 PT-OP-L Special Tests Start: 10/16/21 17:39 Freq: Status: Active Protocol: Document 10/17/21 11:19 [facility] (Rec: 10/17/21 12:22 [facility] [id number]) Special Tests Lumbar Spine Special Tests Slump Test Results positive R Straight Leg Raise Test Results positive R PT-OP-M Strength Start: 10/16/21 17:39 Freq: Status: Active Protocol: Document 01/14/22 10:38 [facility] (Rec: 01/14/22 11:50 [facility] [id number]) Hip Strength Hip Manual Muscle Testing Right Flexion (L2) 5 Normal Extension (S1) 4 Good Abduction 4- Good- Adduction 5 Normal External Rotation 5 Normal Internal Rotation 5 Normal Comments tingly in R foot w/add; pain w /ext Left Flexion (L2) 5 Normal Extension (S1) 4 Good Abduction 4+ Good+ Adduction 5 Normal External Rotation 5 Normal Internal Rotation 5 Normal Knee Strength Knee Manual Muscle Testing Right Flexion (S2) 5 Normal Extension (L3) 5 Normal Left Flexion (S2) 5 Normal Extension (L3) 5 Normal Ankle/Foot Strength Ankle and Foot Manual Muscle Testing Right Dorsiflexion (L4) 5 Normal Plantarflexion (S1) 5 Normal Comments 20 heel raises Left Dorsiflexion (L4) 5 Normal Plantarflexion (S1) 5 Normal Comments decreasing range over time PT-OP-Q Treatments Start: 10/16/21 17:39 Freq: Status: Active Protocol: Document 01/14/22 10:38 [facility] (Rec: 01/14/22 11:50 [facility] [id number]) Therapeutic Exercises Supine Exercises stretch Supine Exercise Name piriformis knee to opp chest Side bilateral Reps/Minutes 30 sec bridge Supine Exercise Name w/march Side bilateral Reps/Minutes 10 Prone Exercises hip ext Side bilateral Reps/Minutes 10 Comments alt Sidelying Exercises hip abd Side bilateral Reps/Minutes 10 Standing Exercises sit to stand Side bilateral Reps/Minutes 10 Comments no hands cues for slow stretch Standing Exercise Name quad on chair Side right Reps/Minutes 1 min Neuro Re-Education Treatment Balance Activities SLS Details B trials Self-Care/Home Management Treatment Education Other Education discussion on importance of cont HEP and verbal review of exercises and importance of doing strength work 2-3x/week PT-OP-R Modalities Start: 10/16/21 17:39 Freq: Status: Active Protocol: Document 11/26/21 09:50 [facility] (Rec: 11/26/21 12:15 [facility] [id number]) Hot Pack/Cold Pack Treatment Hot Pack Location LB & R hip Patient Position Hooklying Treatment Duration (minutes) 15 Patient Tolerance Good PT-OP-T Assessment and Plan Start: 10/16/21 17:39 Freq: Status: Active Protocol: Document 01/14/22 10:38 [facility] (Rec: 01/14/22 11:50 [facility] [id number]) Physical Therapy Assessment Goals skiing Glass Decorator Goal (LTG) Pt will be able to return to cross country skiing and biking w/o inc pain. 11/26-has not tried LTG Duration has not tried transitions Care Home Goal (LTG) Pt will be able to do sit to stand from chair w/o inc hip pain intially. 11/26-just feels stiff now and only for 2 steps vs 10 steps LTG Duration achieved walking Short Term Goal (STG) Pt will be able to walk at least 1.5 mile w/o inc pain greater than 2/10. 11/26-has only tried up to 23 min STG Duration averages 8-9k steps in house and does small walks out Care Home Goal (LTG) Pt will be able to go for longer walks w/hills w/o inc pain greater than 2/10 LTG Duration achievd-cold limiting now strength Short Term Goal (STG) Pt will be indep w/HEP STG Duration achieved progressing and adjustinga s needed Glass Decorator Goal (LTG) Pt will score at least 5/5 B on LE strength tests and 3/5 on LPM in all planes to imrpove hip and core stability in order to improve pt's ability to remain active w/o pain. 11/26-improved but significant glute weakness still LTG Duration much progressed balance Short Term Goal (STG) Pt will be able to do SLS for 5 sec B to show improved balance. 11/26-improved 2 sec L and 12 sec R STG Duration achieved 01/14 Glass Decorator Goal (LTG) Pt will be able to do SLS 10 sec B w/o lat hip shear or opposite hip drop to show improved balance. LTG Duration achieved on R; L still limited Assessment Summary Assessment Pt has made excellent progress w/PT and had met most goals at this time. She is not having much pain anymore in R leg and has been limited recently in mobility d/t being sick w/ a cold only. She is indep w/ HEP. DC to HEP Physical Therapy Plan Discharge Physical Therapy Discharge Reasons Goals Met
== END 2022-01-15 12:48 ==
LOC: PHYS 10:30
PROVIDERS: Family Provider Student in an Organized Health Care Education/Training Program; PCP Student in an Organized Health Care Education/Training Program; Referring Provider Student in an Organized Health Care Education/Training Program; Visit Provider Student in an Organized Health Care Education/Training Program
DX: M79.18 Myalgia, other site (principal); M54.31 Sciatica, right side; R53.1 Weakness; R29.3 Abnormal posture; R26.2 Difficulty in walking, not elsewhere classified
CPT/HCPCS: 97110; 97112; 97116; 97140; 97162; 97530; 97535; 97750

== ENCOUNTER 2023-04-06 10:45 | Outpatient (RCR) | payer MEDICARE, SELFPAY ==
--- NOTE | 2022-11-25 16:37 | PT.OIE ---
Addendum entered and electronically signed by Nani Sesay, PT 11/25/22 16:43: edu to use compression stockings. Discussed the importance of dec swelling and how that affects ROM of knee and ankle. Discussed trying to put LEs up on the wall to help w/swelling also but for short periods only. Discussed prognosis and to expect to get back to longer walks in 2 months or so but not to expect to be going as fast or on as difficult terrain. Edu to do APs, circles and ABCs at home. x8 min Original Note: Current Diagnoses Difficulty in walking, not elsewhere classified (11/25/22) Abnormal posture (11/25/22) Weakness (11/25/22) Other fracture of left lower leg, initial encounter for closed fracture (11/25/22) Visit Care Team Role Provider Type Ady Dow DO Family Provider Non-Staff Primary Care Provider Specialty: Medical Address: [address] [place] [address] [address], [place], [address] Email: Yudelka Charlton MD Attending Provider Physician Referring Provider Specialty: Orthopedics Orthopedic Surgery Address: [address] [place] [address], [id number] Email: [email or web address] Physical Therapy Initial Evaluation PT-OP-A Visit Information Start: 11/24/22 17:53 Freq: Status: Active Protocol: Document 11/25/22 07:26 [facility] (Rec: 11/25/22 08:23 [facility] [id number]) Out-Patient Physical Therapy Visit Information Visit Information Visit Type Initial Evaluation Visit Note 09/30 Visit Start Time 07:31 Visit Stop Time 08:20 Total Visit Minutes 49 Visit Number 1 Number of BARREL SCRAPER Visits 0 PT-OP-B Current Condition Start: 11/24/22 17:53 Freq: Status: Active Protocol: Document 11/25/22 07:26 [facility] (Rec: 11/25/22 08:23 [facility] [id number]) Current Condition History of Current Condition Onset Date Sep 29 Current Complaints MIldly displaced lat malleolus fx History of Current Condition Pt broke her ankle when she was at her cabin in [place] and went for a walk after their long drive. The road was plowed and when she truned, she slipped and she thinks she went into signfiicant inversion. She couldn't get up so had to crawl .1 mile. She had on a trail boot which she thinks may habe made her break better. She has been frustrated because her recovery has been delayed.She had the boot on for 4 weeks. and now has a lace up and wrap ankle brace. She still has a lot of swelling. She has noticed that her L leg does not seem to function as she feels like it should. Her ankle has limited mobility and knee doesn't want to bend. She has been doing acupuncture for the past 4 weeks and that really helped. She saw another PT but decided to come here. She saw her for 3 weeks in Oct until the . Xrays 3 weeks ago and pt reports the MD was happy. Next Xray is next Thu. Pt is to wear the brace when on her feet. Last PT has her walking 15 min a day and she uses poles during the walk. Inside not using poles. Pt reports since wearing the boot her R hip has been givng her more trouble. Pt reports she does okay on stairs. She has been walkin gin her neighborhood and she has to go down a slope and that is tough to do. Treatment Goals Patient/Caregiver Goals Get back to hiking, walking, biking PT-OP-C Subjective Start: 11/24/22 17:53 Freq: Status: Active Protocol: Document 11/25/22 07:26 [facility] (Rec: 11/25/22 08:23 [facility] [id number]) OP-PT Pain Assessment Location L ankle Pain Location Details med & lat ankle Intensity 5 Scale Used Numeric (0 - 10) Description Aching,Sharp Frequency Intermittent Pain Aggravating Factors Activity,Walking Other Pain Aggravating Factors initial standing & first few steps Pain Alleviating Factors Cold,Elevation PT-OP-F Manual Assessment Start: 11/24/22 17:53 Freq: Status: Active Protocol: Document 11/25/22 07:26 [facility] (Rec: 11/25/22 08:23 [facility] [id number]) Manual Assessments Other Manual Assessments Other Manual Assessments significant swelling in L ankle and calf PT-OP-G Mobility & Gait Start: 11/24/22 17:53 Freq: Status: Active Protocol: Document 11/25/22 07:26 [facility] (Rec: 11/25/22 08:23 [facility] [id number]) OP Gait Assessment Comments Gait Comments Dec stance time on LLE and dec push off and some lat lean onto L w/ WB PT-OP-K Range of Motion Start: 11/24/22 17:53 Freq: Status: Active Protocol: Document 11/25/22 07:26 [facility] (Rec: 11/25/22 08:23 [facility] [id number]) Ankle and Foot Goniometric Range of Motion Ankle and Foot Right Active Dorsiflexion with Knee Flexed 9 Dorsiflexion with Knee Extended 3 Plantarflexion 50 Inversion 31 Eversion 11 Left Active Dorsiflexion with Knee Flexed 10 Dorsiflexion with Knee Extended 11 Plantarflexion 40 Inversion 5 Eversion 5 Comments lacking DF to neutral, 35 deg bunion PT-OP-M Strength Start: 11/24/22 17:53 Freq: Status: Active Protocol: Document 11/25/22 07:26 [facility] (Rec: 11/25/22 08:23 [facility] [id number]) Hip Strength Hip Manual Muscle Testing Right Flexion (L2) 4 Good Extension (S1) 3+ Fair+ Abduction 3+ Fair+ Adduction 4 Good External Rotation 4- Good- Internal Rotation 4+ Good+ Left Flexion (L2) 3+ Fair+ Extension (S1) 3 Fair Abduction 3+ Fair+ Adduction 4 Good External Rotation 3+ Fair+ Internal Rotation 3+ Fair+ Knee Strength Knee Manual Muscle Testing Right Flexion (S2) 4 Good Extension (L3) 4+ Good+ Left Flexion (S2) 4- Good- Extension (L3) 4- Good- Ankle/Foot Strength Ankle and Foot Manual Muscle Testing Right Dorsiflexion (L4) 5 Normal Plantarflexion (S1) 5 Normal Inversion 5 Normal Eversion (S1) 5 Normal Left Dorsiflexion (L4) 3+ Fair+ Plantarflexion (S1) 3+ Fair+ Inversion 3+ Fair+ Eversion (S1) 3+ Fair+ Comments PF tested seated B PT-OP-Q Treatments Start: 11/24/22 17:53 Freq: Status: Active Protocol: Document 11/25/22 07:26 [facility] (Rec: 11/25/22 08:23 [facility] [id number]) Self-Care/Home Management Treatment Education Other Education edu PT-OP-T Assessment and Plan Start: 11/24/22 17:53 Freq: Status: Active Protocol: Document 11/25/22 07:26 [facility] (Rec: 11/25/22 08:23 [facility] [id number]) Physical Therapy Assessment Rehab Potential Rehabilitation Potential Good Evaluation Complexity Number of Personal Factors/Comorbidities 3 or More Number of Body Systems Impaired 4 or More Clinical Presentation at Evaluation Stable Impairments Impairments Activity Tolerance,Balance, Edema,Functional Activities, Functional Mobility,Gait,Pain, Posture,ROM,Soft Tissue Mobility,Strength Goals strength Short Term Goal (STG) Pt will be indep w/HEP STG Duration 01/03/23 Custodial Goal (LTG) Pt will score at least 4+/5 on all MMT in order to improve stability of LE to improve ability to particpate in typical activities LTG Duration 02/17 ROM Short Term Goal (STG) Pt will have DF of L anlke ot at least 0 to show improved motion. STG Duration 01/04/23 Custodial Goal (LTG) Pt will have full ROM of L ankle without inc pain in oreder to be able to inclines/ declines and stairs w/o pain LTG Duration 02/17 activity Short Term Goal (STG) Pt will be able to resume 1 mile walks w/1 pole without inc pain greater than 2/10 STG Duration 01/04 Sizing Sponger Goal (LTG) Pt will be able to return to gardening, hiking without issues w/balance and without inc pain >1/10 LTG Duration 02/17 balance Custodial Goal (LTG) Pt will be able to do SLS B 10 sec to show good stability LTG Duration 02/17 Assessment Summary Assessment Pt is 2 months s/p minimally displaced lat malleolus fx with good healing per pt report of recent MD visits. She does have signfiicant LLE calf/ankle/foot swelling, dec ROM and overall L>R LE mm weakness. She is now walking small bouts w/an ankle brace, but does still note some pain and feels weak and limited. 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 Pt would bneefit from skilled PT to work on these deficits and progress back to her typical activity. Physical Therapy Plan Frequency and Duration Frequency of Treatment 1-2x/wk Duration of treatment (weeks) 12 Plan of Care Start Date 11/25/22 Plan of Care End Date 02/17/23 Therapeutic Interventions Therapeutic Interventions Aquatic Therapy,Balance Training,Gait Training,Home Exercise Program,Joint Mobilizations,Manual Therapy, Neuromuscular Re-education, Orthotic/Prosthetic Management ,Patient/Caregiver Education, Self-Care/Home Management,Soft Tissue Mobilization,Taping, Therapeutic Activities, Therapeutic Exercises Modalities Cold Pack/Ice Massage,Electric Stimulation,Hot Packs, Infrared Therapy,Iontophoresis ,Traction- Mechanical, Ultrasound Next Visit Focus/Plan Next Note Type Treatment Note Next Visit Plan Give pt resisted tband ankle DF/PF, work on sit to stands for HEP, manual to calf and gentle peroneals, side steps resisted, Start balance
--- NOTE | 2022-11-25 16:37 | PT.OPPOC ---
Physical, Occupational & Speech Therapy At [facility] Current Diagnoses Difficulty in walking, not elsewhere classified (11/25/22) Abnormal posture (11/25/22) Weakness (11/25/22) Other fracture of left lower leg, initial encounter for closed fracture (11/25/22) Visit Care Team Role Provider Type Ady Dow, Family Provider Non-Staff Primary Care Provider Specialty: Medical Address: [address] [place] [address] [address], [place], [address] Email: Yudelka Charlton MD Attending Provider Physician Referring Provider Specialty: Orthopedics Orthopedic Surgery Address: [address] [place] [address], [id number] Email: [email or web address] Plan Of Care PT-OP-T Assessment and Plan Start: 11/24/22 17:53 Freq: Status: Active Protocol: Document 11/25/22 07:26 [facility] (Rec: 11/25/22 08:23 [facility] [id number]) Physical Therapy Assessment Rehab Potential Rehabilitation Potential Good Evaluation Complexity Number of Personal Factors/Comorbidities 3 or More Number of Body Systems Impaired 4 or More Clinical Presentation at Evaluation Stable Impairments Impairments Activity Tolerance,Balance, Edema,Functional Activities, Functional Mobility,Gait,Pain, Posture,ROM,Soft Tissue Mobility,Strength Goals strength Short Term Goal (STG) Pt will be indep w/HEP STG Duration 01/03/23 Assisted Goal (LTG) Pt will score at least 4+/5 on all MMT in order to improve stability of LE to improve ability to particpate in typical activities LTG Duration 02/17 ROM Short Term Goal (STG) Pt will have DF of L anlke ot at least 0 to show improved motion. STG Duration 01/04/23 Plastics Spreading Machine Operator Goal (LTG) Pt will have full ROM of L ankle without inc pain in oreder to be able to inclines/ declines and stairs w/o pain LTG Duration 02/17 activity Short Term Goal (STG) Pt will be able to resume 1 mile walks w/1 pole without inc pain greater than 2/10 STG Duration 4/16 Assisted Goal (LTG) Pt will be able to return to gardening, hiking without issues w/balance and without inc pain >1/10 LTG Duration 02/17 balance Plastics Spreading Machine Operator Goal (LTG) Pt will be able to do SLS B 10 sec to show good stability LTG Duration 02/17 Assessment Summary Assessment Pt is 2 months s/p minimally displaced lat malleolus fx with good healing per pt report of recent MD visits. She does have signfiicant LLE calf/ankle/foot swelling, dec ROM and overall L>R LE mm weakness. She is now walking small bouts w/an ankle brace, but does still note some pain and feels weak and limited. 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 Pt would bneefit from skilled PT to work on these deficits and progress back to her typical activity. Physical Therapy Plan Frequency and Duration Frequency of Treatment 1-2x/wk Duration of treatment (weeks) 12 Plan of Care Start Date 11/25/22 Plan of Care End Date 02/17/23 Therapeutic Interventions Therapeutic Interventions Aquatic Therapy,Balance Training,Gait Training,Home Exercise Program,Joint Mobilizations,Manual Therapy, Neuromuscular Re-education, Orthotic/Prosthetic Management ,Patient/Caregiver Education, Self-Care/Home Management,Soft Tissue Mobilization,Taping, Therapeutic Activities, Therapeutic Exercises Modalities Cold Pack/Ice Massage,Electric Stimulation,Hot Packs, Infrared Therapy,Iontophoresis ,Traction- Mechanical, Ultrasound Next Visit Focus/Plan Next Note Type Treatment Note Next Visit Plan Give pt resisted tband ankle DF/PF, work on sit to stands for HEP, manual to calf and gentle peroneals, side steps resisted, Start balance Plan of Care Dates Plan of Care Start Date 11/25/22 Plan of Care End Date 02/17/23 Electronically Signed by: Nani Sesay, PT 11/25/22 [id number] If you are in agreement with this Plan of Care, please return a signed and dated copy. I have reviewed this Plan of Care and certify that the skilled therapy services above are required to meet the patient?s needs. Physician Signature Date Printed Name and Credentials Clinical Instructor Signature Printed Name and Credentials
--- NOTE | 2022-12-03 13:50 | PT.OTN ---
Current Diagnoses Difficulty in walking, not elsewhere classified (12/03/22) Abnormal posture (12/03/22) Weakness (12/03/22) Other fracture of left lower leg, initial encounter for closed fracture (12/03/22) Physical Therapy Treatment Note PT-OP-A Visit Information Start: 11/24/22 17:53 Freq: Status: Active Protocol: Document 12/03/22 13:01 [facility] (Rec: 12/03/22 13:49 [facility] [id number]) Out-Patient Physical Therapy Visit Information Visit Information Visit Type Treatment Note Visit Note 10/31 Visit Start Time 13:01 Visit Stop Time 13:54 Total Visit Minutes 53 Visit Number 2 Number of SAFETY ENGINEER PRESSURE VESSELS Visits 0 PT-OP-B Current Condition Start: 11/24/22 17:53 Freq: Status: Active Protocol: Document 11/25/22 07:26 [facility] (Rec: 11/25/22 08:23 [facility] [id number]) Current Condition History of Current Condition Onset Date Sep 29 Current Complaints MIldly displaced lat malleolus fx History of Current Condition Pt broke her ankle when she was at her cabin in [place] and went for a walk after their long drive. The road was plowed and when she truned, she slipped and she thinks she went into signfiicant inversion. She couldn't get up so had to crawl .1 mile. She had on a trail boot which she thinks may habe made her break better. She has been frustrated because her recovery has been delayed.She had the boot on for 4 weeks. and now has a lace up and wrap ankle brace. She still has a lot of swelling. She has noticed that her L leg does not seem to function as she feels like it should. Her ankle has limited mobility and knee doesn't want to bend. She has been doing acupuncture for the past 4 weeks and that really helped. She saw another PT but decided to come here. She saw her for 3 weeks in Oct until the . Xrays 3 weeks ago and pt reports the MD was happy. Next Xray is next Thu. Pt is to wear the brace when on her feet. Last PT has her walking 15 min a day and she uses poles during the walk. Inside not using poles. Pt reports since wearing the boot her R hip has been givng her more trouble. Pt reports she does okay on stairs. She has been walkin gin her neighborhood and she has to go down a slope and that is tough to do. Treatment Goals Patient/Caregiver Goals Get back to hiking, walking, biking PT-OP-C Subjective Start: 11/24/22 17:53 Freq: Status: Active Protocol: Document 12/03/22 13:01 [facility] (Rec: 12/03/22 13:49 [facility] [id number]) OP-PT Subjective Patient Comments Patient Comments Pt reports she saw MD this AM but is tired so does not remember all Feels like the compression socks really help. PT-OP-F Manual Assessment Start: 11/24/22 17:53 Freq: Status: Active Protocol: Document 11/25/22 07:26 [facility] (Rec: 11/25/22 08:23 [facility] [id number]) Manual Assessments Other Manual Assessments Other Manual Assessments significant swelling in L ankle and calf PT-OP-G Mobility & Gait Start: 11/24/22 17:53 Freq: Status: Active Protocol: Document 11/25/22 07:26 [facility] (Rec: 11/25/22 08:23 [facility] [id number]) OP Gait Assessment Comments Gait Comments Dec stance time on LLE and dec push off and some lat lean onto L w/ WB PT-OP-K Range of Motion Start: 11/24/22 17:53 Freq: Status: Active Protocol: Document 11/25/22 07:26 [facility] (Rec: 11/25/22 08:23 [facility] [id number]) Ankle and Foot Goniometric Range of Motion Ankle and Foot Right Active Dorsiflexion with Knee Flexed 9 Dorsiflexion with Knee Extended 3 Plantarflexion 50 Inversion 31 Eversion 11 Left Active Dorsiflexion with Knee Flexed 10 Dorsiflexion with Knee Extended 11 Plantarflexion 40 Inversion 5 Eversion 5 Comments lacking DF to neutral, 35 deg bunion PT-OP-M Strength Start: 11/24/22 17:53 Freq: Status: Active Protocol: Document 11/25/22 07:26 [facility] (Rec: 11/25/22 08:23 [facility] [id number]) Hip Strength Hip Manual Muscle Testing Right Flexion (L2) 4 Good Extension (S1) 3+ Fair+ Abduction 3+ Fair+ Adduction 4 Good External Rotation 4- Good- Internal Rotation 4+ Good+ Left Flexion (L2) 3+ Fair+ Extension (S1) 3 Fair Abduction 3+ Fair+ Adduction 4 Good External Rotation 3+ Fair+ Internal Rotation 3+ Fair+ Knee Strength Knee Manual Muscle Testing Right Flexion (S2) 4 Good Extension (L3) 4+ Good+ Left Flexion (S2) 4- Good- Extension (L3) 4- Good- Ankle/Foot Strength Ankle and Foot Manual Muscle Testing Right Dorsiflexion (L4) 5 Normal Plantarflexion (S1) 5 Normal Inversion 5 Normal Eversion (S1) 5 Normal Left Dorsiflexion (L4) 3+ Fair+ Plantarflexion (S1) 3+ Fair+ Inversion 3+ Fair+ Eversion (S1) 3+ Fair+ Comments PF tested seated B PT-OP-Q Treatments Start: 11/24/22 17:53 Freq: Status: Active Protocol: Document 12/03/22 13:01 [facility] (Rec: 12/03/22 13:49 [facility] [id number]) Therapeutic Exercises Sitting Exercises roll out Sitting Exercise Name R glute & L Plantar fascia Reps/Minutes 4 min stretch Sitting Exercise Name towel calf stretch Side left Reps/Minutes 1 min ankle tband Sitting Exercise Name 1. PF 2. DF Side left Equipment Used orange lvl 1 band Reps/Minutes 15 Standing Exercises sit to stand Side bilateral Reps/Minutes 10 Comments cues for slow sidestep Side bilateral Equipment Used orange lvl 1 band Reps/Minutes 15ft Manual Therapy Treatment Soft Tissue Mobilization plantar fascia Body Location L Mobilization Type Rolling Intensity/Depth Moderate calf Body Location L Mobilization Type Rolling Intensity/Depth Superficial Body Position Supine Neuro Re-Education Treatment Balance Activities foam Equipment blue foam Comments WBOS, NBOS w/head turn and EC trials; staggered stance B PT-OP-R Modalities Start: 11/24/22 17:53 Freq: Status: Active Protocol: Document 12/03/22 13:01 [facility] (Rec: 12/03/22 13:50 [facility] [id number]) Hot Pack/Cold Pack Treatment Cold Pack Location L ankle Patient Position Hooklying Treatment Duration (minutes) 20 PT-OP-T Assessment and Plan Start: 11/24/22 17:53 Freq: Status: Active Protocol: Document 12/03/22 13:01 [facility] (Rec: 12/03/22 13:49 [facility] [id number]) Physical Therapy Assessment Goals strength Short Term Goal (STG) Pt will be indep w/HEP STG Duration 01/03/23 Business Systems Advisor Goal (LTG) Pt will score at least 4+/5 on all MMT in order to improve stability of LE to improve ability to particpate in typical activities LTG Duration 02/17 ROM Short Term Goal (STG) Pt will have DF of L anlke ot at least 0 to show improved motion. STG Duration 01/04/23 Correction Goal (LTG) Pt will have full ROM of L ankle without inc pain in oreder to be able to inclines/ declines and stairs w/o pain LTG Duration 02/17 activity Short Term Goal (STG) Pt will be able to resume 1 mile walks w/1 pole without inc pain greater than 2/10 STG Duration 01/04 Correction Goal (LTG) Pt will be able to return to gardening, hiking without issues w/balance and without inc pain >1/10 LTG Duration 02/17 balance Business Systems Advisor Goal (LTG) Pt will be able to do SLS B 10 sec to show good stability LTG Duration 02/17 Assessment Summary Assessment Pt did well with exercises and reported feeling good with most. Did notes some R hip discomfort w/side step and some foot discomfort w/balance but did well ith manual treatment w/gentle pressure Physical Therapy Plan Next Visit Focus/Plan Next Note Type Treatment Note Next Visit Plan review exercises, manual to calf and peroneals and plantar fascia
--- NOTE | 2022-12-08 12:10 | PT.OTN ---
Current Diagnoses Difficulty in walking, not elsewhere classified (12/08/22) Abnormal posture (12/08/22) Weakness (12/08/22) Other fracture of left lower leg, initial encounter for closed fracture (12/08/22) Physical Therapy Treatment Note PT-OP-A Visit Information Start: 11/24/22 17:53 Freq: Status: Active Protocol: Document 12/08/22 11:21 [facility] (Rec: 12/08/22 12:10 [facility] [id number]) Out-Patient Physical Therapy Visit Information Visit Information Visit Type Treatment Note Visit Note 11/28 Visit Start Time 11:21 Visit Stop Time 12:11 Total Visit Minutes 50 Visit Number 3 Number of COUNSELOR DORMITORY Visits 0 PT-OP-B Current Condition Start: 11/24/22 17:53 Freq: Status: Active Protocol: Document 11/25/22 07:26 [facility] (Rec: 11/25/22 08:23 [facility] [id number]) Current Condition History of Current Condition Onset Date Sep 29 Current Complaints MIldly displaced lat malleolus fx History of Current Condition Pt broke her ankle when she was at her cabin in [place] and went for a walk after their long drive. The road was plowed and when she truned, she slipped and she thinks she went into signfiicant inversion. She couldn't get up so had to crawl .1 mile. She had on a trail boot which she thinks may habe made her break better. She has been frustrated because her recovery has been delayed.She had the boot on for 4 weeks. and now has a lace up and wrap ankle brace. She still has a lot of swelling. She has noticed that her L leg does not seem to function as she feels like it should. Her ankle has limited mobility and knee doesn't want to bend. She has been doing acupuncture for the past 4 weeks and that really helped. She saw another PT but decided to come here. She saw her for 3 weeks in Oct until the . Xrays 3 weeks ago and pt reports the MD was happy. Next Xray is next Thu. Pt is to wear the brace when on her feet. Last PT has her walking 15 min a day and she uses poles during the walk. Inside not using poles. Pt reports since wearing the boot her R hip has been givng her more trouble. Pt reports she does okay on stairs. She has been walkin gin her neighborhood and she has to go down a slope and that is tough to do. Treatment Goals Patient/Caregiver Goals Get back to hiking, walking, biking PT-OP-C Subjective Start: 11/24/22 17:53 Freq: Status: Active Protocol: Document 12/08/22 11:21 [facility] (Rec: 12/08/22 12:10 [facility] [id number]) OP-PT Subjective Patient Comments Patient Comments Pt reports she feels like massage last time was too much . Notes seh is encouraged d/t feelingb nelida. PT-OP-F Manual Assessment Start: 11/24/22 17:53 Freq: Status: Active Protocol: Document 11/25/22 07:26 [facility] (Rec: 11/25/22 08:23 [facility] [id number]) Manual Assessments Other Manual Assessments Other Manual Assessments significant swelling in L ankle and calf PT-OP-G Mobility & Gait Start: 11/24/22 17:53 Freq: Status: Active Protocol: Document 11/25/22 07:26 [facility] (Rec: 11/25/22 08:23 [facility] [id number]) OP Gait Assessment Comments Gait Comments Dec stance time on LLE and dec push off and some lat lean onto L w/ WB PT-OP-K Range of Motion Start: 11/24/22 17:53 Freq: Status: Active Protocol: Document 11/25/22 07:26 [facility] (Rec: 11/25/22 08:23 [facility] [id number]) Ankle and Foot Goniometric Range of Motion Ankle and Foot Right Active Dorsiflexion with Knee Flexed 9 Dorsiflexion with Knee Extended 3 Plantarflexion 50 Inversion 31 Eversion 11 Left Active Dorsiflexion with Knee Flexed 10 Dorsiflexion with Knee Extended 11 Plantarflexion 40 Inversion 5 Eversion 5 Comments lacking DF to neutral, 35 deg bunion PT-OP-M Strength Start: 11/24/22 17:53 Freq: Status: Active Protocol: Document 11/25/22 07:26 [facility] (Rec: 11/25/22 08:23 [facility] [id number]) Hip Strength Hip Manual Muscle Testing Right Flexion (L2) 4 Good Extension (S1) 3+ Fair+ Abduction 3+ Fair+ Adduction 4 Good External Rotation 4- Good- Internal Rotation 4+ Good+ Left Flexion (L2) 3+ Fair+ Extension (S1) 3 Fair Abduction 3+ Fair+ Adduction 4 Good External Rotation 3+ Fair+ Internal Rotation 3+ Fair+ Knee Strength Knee Manual Muscle Testing Right Flexion (S2) 4 Good Extension (L3) 4+ Good+ Left Flexion (S2) 4- Good- Extension (L3) 4- Good- Ankle/Foot Strength Ankle and Foot Manual Muscle Testing Right Dorsiflexion (L4) 5 Normal Plantarflexion (S1) 5 Normal Inversion 5 Normal Eversion (S1) 5 Normal Left Dorsiflexion (L4) 3+ Fair+ Plantarflexion (S1) 3+ Fair+ Inversion 3+ Fair+ Eversion (S1) 3+ Fair+ Comments PF tested seated B PT-OP-Q Treatments Start: 11/24/22 17:53 Freq: Status: Active Protocol: Document 12/08/22 11:21 [facility] (Rec: 12/08/22 12:10 [facility] [id number]) Therapeutic Exercises Sitting Exercises stretch Sitting Exercise Name 1.towel calf stretch 2. plantar fascia Side left Reps/Minutes 30 sec ea ankle tband Sitting Exercise Name 1. PF 2. DF Side left Equipment Used orange lvl 1 band Reps/Minutes 10 ea Standing Exercises stretch Standing Exercise Name fwd lean calf Side left Reps/Minutes 30 sec sidestep Side bilateral Equipment Used orange lvl 1 band Reps/Minutes 20ft Manual Therapy Treatment Soft Tissue Mobilization plantar fascia Body Location L Mobilization Type Rolling Intensity/Depth Moderate calf Body Location L circumfrential Mobilization Type Myofascial Release Intensity/Depth Superficial Body Position Supine Joint Mobilizations talus Joint distraction, lat glide & AP FM Grade II calcaneus Joint distraction &med glide FM Grade II Neuro Re-Education Treatment Balance Activities tilt board Comments fwd & side: balance & wt shifts foam Equipment blue foam Comments WBOS, NBOS w/head turn and EC trials; staggered stance B PT-OP-R Modalities Start: 11/24/22 17:53 Freq: Status: Active Protocol: Document 12/08/22 11:21 [facility] (Rec: 12/08/22 12:10 [facility] [id number]) Hot Pack/Cold Pack Treatment Cold Pack Location L ankle and R hip Patient Position Hooklying Treatment Duration (minutes) 10 PT-OP-T Assessment and Plan Start: 11/24/22 17:53 Freq: Status: Active Protocol: Document 12/08/22 11:21 [facility] (Rec: 12/08/22 12:10 [facility] [id number]) Physical Therapy Assessment Goals strength Short Term Goal (STG) Pt will be indep w/HEP STG Duration 01/03/23 Battery Filler Goal (LTG) Pt will score at least 4+/5 on all MMT in order to improve stability of LE to improve ability to particpate in typical activities LTG Duration 02/17 ROM Short Term Goal (STG) Pt will have DF of L anlke ot at least 0 to show improved motion. STG Duration 01/04/23 Assisted Goal (LTG) Pt will have full ROM of L ankle without inc pain in oreder to be able to inclines/ declines and stairs w/o pain LTG Duration 02/17 activity Short Term Goal (STG) Pt will be able to resume 1 mile walks w/1 pole without inc pain greater than 2/10 STG Duration 01/04 Battery Filler Goal (LTG) Pt will be able to return to gardening, hiking without issues w/balance and without inc pain >1/10 LTG Duration 02/17 balance Battery Filler Goal (LTG) Pt will be able to do SLS B 10 sec to show good stability LTG Duration 02/17 Assessment Summary Assessment pt did well with more gentle manual to achilles and calf today. She reported feeling the opening w/calcananeal distraction.S he cont to advance w/balanec and showed more stability during activities today. Physical Therapy Plan Frequency and Duration Frequency of Treatment 1-2x/wk Duration of treatment (weeks) 12 Plan of Care Start Date 11/25/22 Plan of Care End Date 02/17/23 Next Visit Focus/Plan Next Note Type Treatment Note Next Visit Plan advance exercises, manual to calf and peroneals and plantar fascia
--- NOTE | 2022-12-11 13:55 | PT.OTN ---
Current Diagnoses Difficulty in walking, not elsewhere classified (12/11/22) Abnormal posture (12/11/22) Weakness (12/11/22) Other fracture of left lower leg, initial encounter for closed fracture (12/11/22) Physical Therapy Treatment Note PT-OP-A Visit Information Start: 11/24/22 17:53 Freq: Status: Active Protocol: Document 12/11/22 11:21 [facility] (Rec: 12/11/22 12:11 [facility] [id number]) Out-Patient Physical Therapy Visit Information Visit Information Visit Type Treatment Note Visit Note 12/29 Visit Start Time 11:22 Visit Stop Time 12:02 Total Visit Minutes 40 Visit Number 4 Number of PEARL FISHERMAN Visits 0 PT-OP-B Current Condition Start: 11/24/22 17:53 Freq: Status: Active Protocol: Document 11/25/22 07:26 [facility] (Rec: 11/25/22 08:23 [facility] [id number]) Current Condition History of Current Condition Onset Date Sep 29 Current Complaints MIldly displaced lat malleolus fx History of Current Condition Pt broke her ankle when she was at her cabin in [place] and went for a walk after their long drive. The road was plowed and when she truned, she slipped and she thinks she went into signfiicant inversion. She couldn't get up so had to crawl .1 mile. She had on a trail boot which she thinks may habe made her break better. She has been frustrated because her recovery has been delayed.She had the boot on for 4 weeks. and now has a lace up and wrap ankle brace. She still has a lot of swelling. She has noticed that her L leg does not seem to function as she feels like it should. Her ankle has limited mobility and knee doesn't want to bend. She has been doing acupuncture for the past 4 weeks and that really helped. She saw another PT but decided to come here. She saw her for 3 weeks in Oct until the . Xrays 3 weeks ago and pt reports the MD was happy. Next Xray is next Thu. Pt is to wear the brace when on her feet. Last PT has her walking 15 min a day and she uses poles during the walk. Inside not using poles. Pt reports since wearing the boot her R hip has been givng her more trouble. Pt reports she does okay on stairs. She has been walkin gin her neighborhood and she has to go down a slope and that is tough to do. Treatment Goals Patient/Caregiver Goals Get back to hiking, walking, biking PT-OP-C Subjective Start: 11/24/22 17:53 Freq: Status: Active Protocol: Document 12/11/22 11:21 [facility] (Rec: 12/11/22 12:11 [facility] [id number]) OP-PT Subjective Patient Comments Patient Comments Pt reports bottom of foot just feels generally sore in B feet. on thursday PT-OP-F Manual Assessment Start: 11/24/22 17:53 Freq: Status: Active Protocol: Document 11/25/22 07:26 [facility] (Rec: 11/25/22 08:23 [facility] [id number]) Manual Assessments Other Manual Assessments Other Manual Assessments significant swelling in L ankle and calf PT-OP-G Mobility & Gait Start: 11/24/22 17:53 Freq: Status: Active Protocol: Document 11/25/22 07:26 [facility] (Rec: 11/25/22 08:23 [facility] [id number]) OP Gait Assessment Comments Gait Comments Dec stance time on LLE and dec push off and some lat lean onto L w/ WB PT-OP-K Range of Motion Start: 11/24/22 17:53 Freq: Status: Active Protocol: Document 11/25/22 07:26 [facility] (Rec: 11/25/22 08:23 [facility] [id number]) Ankle and Foot Goniometric Range of Motion Ankle and Foot Right Active Dorsiflexion with Knee Flexed 9 Dorsiflexion with Knee Extended 3 Plantarflexion 50 Inversion 31 Eversion 11 Left Active Dorsiflexion with Knee Flexed 10 Dorsiflexion with Knee Extended 11 Plantarflexion 40 Inversion 5 Eversion 5 Comments lacking DF to neutral, 35 deg bunion PT-OP-M Strength Start: 11/24/22 17:53 Freq: Status: Active Protocol: Document 11/25/22 07:26 [facility] (Rec: 11/25/22 08:23 [facility] [id number]) Hip Strength Hip Manual Muscle Testing Right Flexion (L2) 4 Good Extension (S1) 3+ Fair+ Abduction 3+ Fair+ Adduction 4 Good External Rotation 4- Good- Internal Rotation 4+ Good+ Left Flexion (L2) 3+ Fair+ Extension (S1) 3 Fair Abduction 3+ Fair+ Adduction 4 Good External Rotation 3+ Fair+ Internal Rotation 3+ Fair+ Knee Strength Knee Manual Muscle Testing Right Flexion (S2) 4 Good Extension (L3) 4+ Good+ Left Flexion (S2) 4- Good- Extension (L3) 4- Good- Ankle/Foot Strength Ankle and Foot Manual Muscle Testing Right Dorsiflexion (L4) 5 Normal Plantarflexion (S1) 5 Normal Inversion 5 Normal Eversion (S1) 5 Normal Left Dorsiflexion (L4) 3+ Fair+ Plantarflexion (S1) 3+ Fair+ Inversion 3+ Fair+ Eversion (S1) 3+ Fair+ Comments PF tested seated B PT-OP-Q Treatments Start: 11/24/22 17:53 Freq: Status: Active Protocol: Document 12/11/22 11:21 [facility] (Rec: 12/11/22 12:11 [facility] [id number]) Therapeutic Exercises Sitting Exercises toe exercsies Sitting Exercise Name big toe ext, little toe ext w/ big toe down, toe abd Side left BAPs Sitting Exercise Name PF/df; inversion/eversion Side left Equipment Used baps Reps/Minutes 15 Standing Exercises wt shifts Standing Exercise Name fwd Side bilateral Reps/Minutes 15 Comments hand on table Manual Therapy Treatment Soft Tissue Mobilization calf Body Location L circumfrential calf and peroneals & MFR to ant ankle Mobilization Type Myofascial Release Intensity/Depth Superficial Body Position Supine Joint Mobilizations tibfib Joint tibfib-tib AP Grade II talus Joint distraiton & PA in PF calcaneus Joint distraction in PF Grade II Self-Care/Home Management Treatment Education Other Education 8 min-disucssion re: swelling- pt swelling is down so did instruct pt on dec compression sock use if she feels like it is bothering her foot (pt noted she felt like it was)- edu to cont to monitor her swelling though and use as needed. Looked at book pt broguht with exercises pt is doing for plantar fasicitis. discussed one pt having troubl ew/(wall sit)-pt encoruaged to hold on that one and just do sit to stands as she is unable to hold it. PT-OP-R Modalities Start: 11/24/22 17:53 Freq: Status: Active Protocol: Document 12/08/22 11:21 [facility] (Rec: 12/08/22 12:10 [facility] [id number]) Hot Pack/Cold Pack Treatment Cold Pack Location L ankle and R hip Patient Position Hooklying Treatment Duration (minutes) 10 PT-OP-T Assessment and Plan Start: 11/24/22 17:53 Freq: Status: Active Protocol: Document 12/11/22 11:21 [facility] (Rec: 12/11/22 12:11 [facility] [id number]) Physical Therapy Assessment Goals strength Short Term Goal (STG) Pt will be indep w/HEP STG Duration 01/03/23 [facility] Goal (LTG) Pt will score at least 4+/5 on all MMT in order to improve stability of LE to improve ability to particpate in typical activities LTG Duration 02/17 ROM Short Term Goal (STG) Pt will have DF of L anlke ot at least 0 to show improved motion. STG Duration 01/04/23 Job Printer Apprentice Goal (LTG) Pt will have full ROM of L ankle without inc pain in oreder to be able to inclines/ declines and stairs w/o pain LTG Duration 02/17 activity Short Term Goal (STG) Pt will be able to resume 1 mile walks w/1 pole without inc pain greater than 2/10 STG Duration 01/04 [facility] Goal (LTG) Pt will be able to return to gardening, hiking without issues w/balance and without inc pain >1/10 LTG Duration 02/17 balance [facility] Goal (LTG) Pt will be able to do SLS B 10 sec to show good stability LTG Duration 02/17 Assessment Summary Assessment Pt had difficulty with wt shifting into LLE and w/push off w/wt shifts. It did improve w/reps. Improved ROM today w/manual treatment. Physical Therapy Plan Frequency and Duration Frequency of Treatment 1-2x/wk Duration of treatment (weeks) 12 Plan of Care Start Date 11/25/22 Plan of Care End Date 02/17/23 Next Visit Focus/Plan Next Note Type Treatment Note Next Visit Plan advance exercises, manual to calf and peroneals and plantar fascia
--- NOTE | 2022-12-15 12:31 | PT.OTN ---
Current Diagnoses Difficulty in walking, not elsewhere classified (12/15/22) Abnormal posture (12/15/22) Weakness (12/15/22) Other fracture of left lower leg, initial encounter for closed fracture (12/15/22) Physical Therapy Treatment Note PT-OP-A Visit Information Start: 11/24/22 17:53 Freq: Status: Active Protocol: Document 12/15/22 11:30 [facility] (Rec: 12/15/22 12:31 [facility] [id number]) Out-Patient Physical Therapy Visit Information Visit Information Visit Type Treatment Note Visit Note 01/28 Visit Start Time 11:20 Visit Stop Time 12:00 Total Visit Minutes 40 Visit Number 5 Number of MANAGER QUALITY IMPROVEMENT Visits 0 PT-OP-B Current Condition Start: 11/24/22 17:53 Freq: Status: Active Protocol: Document 11/25/22 07:26 [facility] (Rec: 11/25/22 08:23 [facility] [id number]) Current Condition History of Current Condition Onset Date Sep 29 Current Complaints MIldly displaced lat malleolus fx History of Current Condition Pt broke her ankle when she was at her cabin in [place] and went for a walk after their long drive. The road was plowed and when she truned, she slipped and she thinks she went into signfiicant inversion. She couldn't get up so had to crawl .1 mile. She had on a trail boot which she thinks may habe made her break better. She has been frustrated because her recovery has been delayed.She had the boot on for 4 weeks. and now has a lace up and wrap ankle brace. She still has a lot of swelling. She has noticed that her L leg does not seem to function as she feels like it should. Her ankle has limited mobility and knee doesn't want to bend. She has been doing acupuncture for the past 4 weeks and that really helped. She saw another PT but decided to come here. She saw her for 3 weeks in Oct until the . Xrays 3 weeks ago and pt reports the MD was happy. Next Xray is next Thu. Pt is to wear the brace when on her feet. Last PT has her walking 15 min a day and she uses poles during the walk. Inside not using poles. Pt reports since wearing the boot her R hip has been givng her more trouble. Pt reports she does okay on stairs. She has been walkin gin her neighborhood and she has to go down a slope and that is tough to do. Treatment Goals Patient/Caregiver Goals Get back to hiking, walking, biking PT-OP-C Subjective Start: 11/24/22 17:53 Freq: Status: Active Protocol: Document 12/15/22 11:30 [facility] (Rec: 12/15/22 12:31 [facility] [id number]) OP-PT Subjective Patient Comments Patient Comments Pt reports got new shoes and feels like they help a lot. Reports her pain is better since last time. PT-OP-F Manual Assessment Start: 11/24/22 17:53 Freq: Status: Active Protocol: Document 11/25/22 07:26 [facility] (Rec: 11/25/22 08:23 [facility] [id number]) Manual Assessments Other Manual Assessments Other Manual Assessments significant swelling in L ankle and calf PT-OP-G Mobility & Gait Start: 11/24/22 17:53 Freq: Status: Active Protocol: Document 11/25/22 07:26 [facility] (Rec: 11/25/22 08:23 [facility] [id number]) OP Gait Assessment Comments Gait Comments Dec stance time on LLE and dec push off and some lat lean onto L w/ WB PT-OP-K Range of Motion Start: 11/24/22 17:53 Freq: Status: Active Protocol: Document 11/25/22 07:26 [facility] (Rec: 11/25/22 08:23 [facility] [id number]) Ankle and Foot Goniometric Range of Motion Ankle and Foot Right Active Dorsiflexion with Knee Flexed 9 Dorsiflexion with Knee Extended 3 Plantarflexion 50 Inversion 31 Eversion 11 Left Active Dorsiflexion with Knee Flexed 10 Dorsiflexion with Knee Extended 11 Plantarflexion 40 Inversion 5 Eversion 5 Comments lacking DF to neutral, 35 deg bunion PT-OP-M Strength Start: 11/24/22 17:53 Freq: Status: Active Protocol: Document 11/25/22 07:26 [facility] (Rec: 11/25/22 08:23 [facility] [id number]) Hip Strength Hip Manual Muscle Testing Right Flexion (L2) 4 Good Extension (S1) 3+ Fair+ Abduction 3+ Fair+ Adduction 4 Good External Rotation 4- Good- Internal Rotation 4+ Good+ Left Flexion (L2) 3+ Fair+ Extension (S1) 3 Fair Abduction 3+ Fair+ Adduction 4 Good External Rotation 3+ Fair+ Internal Rotation 3+ Fair+ Knee Strength Knee Manual Muscle Testing Right Flexion (S2) 4 Good Extension (L3) 4+ Good+ Left Flexion (S2) 4- Good- Extension (L3) 4- Good- Ankle/Foot Strength Ankle and Foot Manual Muscle Testing Right Dorsiflexion (L4) 5 Normal Plantarflexion (S1) 5 Normal Inversion 5 Normal Eversion (S1) 5 Normal Left Dorsiflexion (L4) 3+ Fair+ Plantarflexion (S1) 3+ Fair+ Inversion 3+ Fair+ Eversion (S1) 3+ Fair+ Comments PF tested seated B PT-OP-Q Treatments Start: 11/24/22 17:53 Freq: Status: Active Protocol: Document 12/15/22 11:30 [facility] (Rec: 12/15/22 12:31 [facility] [id number]) Therapeutic Exercises Sitting Exercises BAPs Sitting Exercise Name PF/df; inversion/eversion Side left Equipment Used baps lvl 3 Reps/Minutes 15 stretch Sitting Exercise Name PF w/toe flex & DF w/toe ext & calf towel Side left Reps/Minutes 30 sec ea Standing Exercises wt shifts Standing Exercise Name fwd Side bilateral Reps/Minutes 15 Comments hand on table-mirror prn Manual Therapy Treatment Soft Tissue Mobilization ant tib Body Location L Mobilization Type Myofascial Release Intensity/Depth Superficial Comments APs Neuro Re-Education Treatment Balance Activities SLS Details w/hand on counter w/L; R SLS tilt board Comments fwd & side: balance & wt shifts foam Equipment blue foam Comments WBOS, NBOS w/head turn and EC trials; staggered stance B w/ head turns PT-OP-R Modalities Start: 11/24/22 17:53 Freq: Status: Active Protocol: Document 12/08/22 11:21 [facility] (Rec: 12/08/22 12:10 [facility] [id number]) Hot Pack/Cold Pack Treatment Cold Pack Location L ankle and R hip Patient Position Hooklying Treatment Duration (minutes) 10 PT-OP-T Assessment and Plan Start: 11/24/22 17:53 Freq: Status: Active Protocol: Document 12/15/22 11:30 [facility] (Rec: 12/15/22 12:31 [facility] [id number]) Physical Therapy Assessment Goals strength Short Term Goal (STG) Pt will be indep w/HEP STG Duration 01/03/23 Project Control Manager Goal (LTG) Pt will score at least 4+/5 on all MMT in order to improve stability of LE to improve ability to particpate in typical activities LTG Duration 02/17 ROM Short Term Goal (STG) Pt will have DF of L anlke ot at least 0 to show improved motion. STG Duration 01/04/23 Project Control Manager Goal (LTG) Pt will have full ROM of L ankle without inc pain in oreder to be able to inclines/ declines and stairs w/o pain LTG Duration 02/17 activity Short Term Goal (STG) Pt will be able to resume 1 mile walks w/1 pole without inc pain greater than 2/10 STG Duration 01/04 Project Control Manager Goal (LTG) Pt will be able to return to gardening, hiking without issues w/balance and without inc pain >1/10 LTG Duration 02/17 balance Fpc Goal (LTG) Pt will be able to do SLS B 10 sec to show good stability LTG Duration 02/17 Assessment Summary Assessment Pt is doing much better w/wt shifting into LE and accepting weight. She still gets sore w /a lot of standing activity but is able to recover w/ sitting. Physical Therapy Plan Frequency and Duration Frequency of Treatment 1-2x/wk Duration of treatment (weeks) 12 Plan of Care Start Date 11/25/22 Plan of Care End Date 02/17/23 Next Visit Focus/Plan Next Note Type Treatment Note Next Visit Plan advance exercises, manual to calf and peroneals and plantar fascia
--- NOTE | 2022-12-22 12:13 | PT.OTN ---
Current Diagnoses Difficulty in walking, not elsewhere classified (12/22/22) Abnormal posture (12/22/22) Weakness (12/22/22) Other fracture of left lower leg, initial encounter for closed fracture (12/22/22) Physical Therapy Treatment Note PT-OP-A Visit Information Start: 11/24/22 17:53 Freq: Status: Active Protocol: Document 12/22/22 11:18 [facility] (Rec: 12/22/22 12:13 [facility] [id number]) Out-Patient Physical Therapy Visit Information Visit Information Visit Type Treatment Note Visit Note 02/28 Visit Start Time 11:19 Visit Stop Time 12:00 Total Visit Minutes 41 Visit Number 6 Number of STERILE PREPARATION TECHNICIAN Visits 0 PT-OP-B Current Condition Start: 11/24/22 17:53 Freq: Status: Active Protocol: Document 11/25/22 07:26 [facility] (Rec: 11/25/22 08:23 [facility] [id number]) Current Condition History of Current Condition Onset Date Sep 29 Current Complaints MIldly displaced lat malleolus fx History of Current Condition Pt broke her ankle when she was at her cabin in [place] and went for a walk after their long drive. The road was plowed and when she truned, she slipped and she thinks she went into signfiicant inversion. She couldn't get up so had to crawl .1 mile. She had on a trail boot which she thinks may habe made her break better. She has been frustrated because her recovery has been delayed.She had the boot on for 4 weeks. and now has a lace up and wrap ankle brace. She still has a lot of swelling. She has noticed that her L leg does not seem to function as she feels like it should. Her ankle has limited mobility and knee doesn't want to bend. She has been doing acupuncture for the past 4 weeks and that really helped. She saw another PT but decided to come here. She saw her for 3 weeks in Oct until the . Xrays 3 weeks ago and pt reports the MD was happy. Next Xray is next Thu. Pt is to wear the brace when on her feet. Last PT has her walking 15 min a day and she uses poles during the walk. Inside not using poles. Pt reports since wearing the boot her R hip has been givng her more trouble. Pt reports she does okay on stairs. She has been walkin gin her neighborhood and she has to go down a slope and that is tough to do. Treatment Goals Patient/Caregiver Goals Get back to hiking, walking, biking PT-OP-C Subjective Start: 11/24/22 17:53 Freq: Status: Active Protocol: Document 12/22/22 11:18 [facility] (Rec: 12/22/22 12:13 [facility] [id number]) OP-PT Subjective Patient Comments Patient Comments Pt reports once she uses her ankle a lot and moves it feels okay but standing still hurts like at [facility]. She walked up the hill for a walk for 20 min (walked slow) and did a walk on the firm sand for 20 to 30 min. Pt reports sitting w/leg down or standing PT-OP-F Manual Assessment Start: 11/24/22 17:53 Freq: Status: Active Protocol: Document 11/25/22 07:26 [facility] (Rec: 11/25/22 08:23 [facility] [id number]) Manual Assessments Other Manual Assessments Other Manual Assessments significant swelling in L ankle and calf PT-OP-G Mobility & Gait Start: 11/24/22 17:53 Freq: Status: Active Protocol: Document 11/25/22 07:26 [facility] (Rec: 11/25/22 08:23 [facility] [id number]) OP Gait Assessment Comments Gait Comments Dec stance time on LLE and dec push off and some lat lean onto L w/ WB PT-OP-K Range of Motion Start: 11/24/22 17:53 Freq: Status: Active Protocol: Document 11/25/22 07:26 [facility] (Rec: 11/25/22 08:23 [facility] [id number]) Ankle and Foot Goniometric Range of Motion Ankle and Foot Right Active Dorsiflexion with Knee Flexed 9 Dorsiflexion with Knee Extended 3 Plantarflexion 50 Inversion 31 Eversion 11 Left Active Dorsiflexion with Knee Flexed 10 Dorsiflexion with Knee Extended 11 Plantarflexion 40 Inversion 5 Eversion 5 Comments lacking DF to neutral, 35 deg bunion PT-OP-M Strength Start: 11/24/22 17:53 Freq: Status: Active Protocol: Document 11/25/22 07:26 [facility] (Rec: 11/25/22 08:23 [facility] [id number]) Hip Strength Hip Manual Muscle Testing Right Flexion (L2) 4 Good Extension (S1) 3+ Fair+ Abduction 3+ Fair+ Adduction 4 Good External Rotation 4- Good- Internal Rotation 4+ Good+ Left Flexion (L2) 3+ Fair+ Extension (S1) 3 Fair Abduction 3+ Fair+ Adduction 4 Good External Rotation 3+ Fair+ Internal Rotation 3+ Fair+ Knee Strength Knee Manual Muscle Testing Right Flexion (S2) 4 Good Extension (L3) 4+ Good+ Left Flexion (S2) 4- Good- Extension (L3) 4- Good- Ankle/Foot Strength Ankle and Foot Manual Muscle Testing Right Dorsiflexion (L4) 5 Normal Plantarflexion (S1) 5 Normal Inversion 5 Normal Eversion (S1) 5 Normal Left Dorsiflexion (L4) 3+ Fair+ Plantarflexion (S1) 3+ Fair+ Inversion 3+ Fair+ Eversion (S1) 3+ Fair+ Comments PF tested seated B PT-OP-Q Treatments Start: 11/24/22 17:53 Freq: Status: Active Protocol: Document 12/22/22 11:18 [facility] (Rec: 12/22/22 12:13 [facility] [id number]) Therapeutic Exercises Sitting Exercises ROM Sitting Exercise Name inversion/eversion Side left Reps/Minutes 20 ankle tband Sitting Exercise Name eversion Side left Equipment Used blue lvl 1 band Reps/Minutes 15 Standing Exercises DF Standing Exercise Name hands on counter Side bilateral Reps/Minutes 10 Comments cues no lean back Heel raises Side bilateral Reps/Minutes 10 wt shifts Standing Exercise Name fwd Side left Reps/Minutes 8 Manual Therapy Treatment Soft Tissue Mobilization calf Body Location L achilles Mobilization Type Myofascial Release,Rolling Intensity/Depth Moderate Comments w/APs Joint Mobilizations talus Joint distraiton & PA in PF calcaneus Joint distraction in PF Grade II Neuro Re-Education Treatment Balance Activities SLS Details w/L; R SLS tilt board Comments fwd & side: balance & wt shifts foam Equipment blue foam Comments WBOS, NBOS, staggered stance Bw/head turn and EC trials Self-Care/Home Management Treatment Education Other Education review of desensitization; discussed cont to inc walks gradually, discussed doing AROM as much as possible x5 min PT-OP-R Modalities Start: 11/24/22 17:53 Freq: Status: Active Protocol: Document 12/08/22 11:21 [facility] (Rec: 12/08/22 12:10 [facility] [id number]) Hot Pack/Cold Pack Treatment Cold Pack Location L ankle and R hip Patient Position Hooklying Treatment Duration (minutes) 10 PT-OP-T Assessment and Plan Start: 11/24/22 17:53 Freq: Status: Active Protocol: Document 12/22/22 11:18 [facility] (Rec: 12/22/22 12:13 [facility] [id number]) Physical Therapy Assessment Goals strength Short Term Goal (STG) Pt will be indep w/HEP STG Duration 01/03/23 Correction Goal (LTG) Pt will score at least 4+/5 on all MMT in order to improve stability of LE to improve ability to particpate in typical activities LTG Duration 02/17 ROM Short Term Goal (STG) Pt will have DF of L anlke ot at least 0 to show improved motion. STG Duration 01/04/23 Gauntlet Pairer Goal (LTG) Pt will have full ROM of L ankle without inc pain in oreder to be able to inclines/ declines and stairs w/o pain LTG Duration 02/17 activity Short Term Goal (STG) Pt will be able to resume 1 mile walks w/1 pole without inc pain greater than 2/10 STG Duration 01/04 Correction Goal (LTG) Pt will be able to return to gardening, hiking without issues w/balance and without inc pain >1/10 LTG Duration 02/17 balance Correction Goal (LTG) Pt will be able to do SLS B 10 sec to show good stability LTG Duration 02/17 Assessment Summary Assessment Pt idd well with exercises today and cont to advance w/ improving ability to WB into LLE. She is improving w/ balanec and had improved toleranec to balance today. Physical Therapy Plan Frequency and Duration Frequency of Treatment 1-2x/wk Duration of treatment (weeks) 12 Plan of Care Start Date 11/25/22 Plan of Care End Date 02/17/23 Next Visit Focus/Plan Next Note Type Treatment Note Next Visit Plan advance exercises, manual to calf and peroneals and plantar fascia
--- NOTE | 2022-12-25 12:10 | PT.OTN ---
Current Diagnoses Difficulty in walking, not elsewhere classified (12/25/22) Abnormal posture (12/25/22) Weakness (12/25/22) Other fracture of left lower leg, initial encounter for closed fracture (12/25/22) Physical Therapy Treatment Note PT-OP-A Visit Information Start: 11/24/22 17:53 Freq: Status: Active Protocol: Document 12/25/22 11:06 [facility] (Rec: 12/25/22 12:10 [facility] [id number]) Out-Patient Physical Therapy Visit Information Visit Information Visit Type Treatment Note Visit Note 03/30 Visit Start Time 11:18 Visit Stop Time 12:10 Total Visit Minutes 52 Visit Number 7 Number of BIODIESEL PROCESS CONTROL TECHNICIAN Visits 0 PT-OP-B Current Condition Start: 11/24/22 17:53 Freq: Status: Active Protocol: Document 11/25/22 07:26 [facility] (Rec: 11/25/22 08:23 [facility] [id number]) Current Condition History of Current Condition Onset Date Sep 29 Current Complaints MIldly displaced lat malleolus fx History of Current Condition Pt broke her ankle when she was at her cabin in [place] and went for a walk after their long drive. The road was plowed and when she truned, she slipped and she thinks she went into signfiicant inversion. She couldn't get up so had to crawl .1 mile. She had on a trail boot which she thinks may habe made her break better. She has been frustrated because her recovery has been delayed.She had the boot on for 4 weeks. and now has a lace up and wrap ankle brace. She still has a lot of swelling. She has noticed that her L leg does not seem to function as she feels like it should. Her ankle has limited mobility and knee doesn't want to bend. She has been doing acupuncture for the past 4 weeks and that really helped. She saw another PT but decided to come here. She saw her for 3 weeks in Oct until the . Xrays 3 weeks ago and pt reports the MD was happy. Next Xray is next Thu. Pt is to wear the brace when on her feet. Last PT has her walking 15 min a day and she uses poles during the walk. Inside not using poles. Pt reports since wearing the boot her R hip has been givng her more trouble. Pt reports she does okay on stairs. She has been walkin gin her neighborhood and she has to go down a slope and that is tough to do. Treatment Goals Patient/Caregiver Goals Get back to hiking, walking, biking PT-OP-C Subjective Start: 11/24/22 17:53 Freq: Status: Active Protocol: Document 12/25/22 11:06 [facility] (Rec: 12/25/22 12:10 [facility] [id number]) OP-PT Subjective Patient Comments Patient Comments Pt reprots noticing her foot turns out when walking and it bothers her PT-OP-F Manual Assessment Start: 11/24/22 17:53 Freq: Status: Active Protocol: Document 11/25/22 07:26 [facility] (Rec: 11/25/22 08:23 [facility] [id number]) Manual Assessments Other Manual Assessments Other Manual Assessments significant swelling in L ankle and calf PT-OP-G Mobility & Gait Start: 11/24/22 17:53 Freq: Status: Active Protocol: Document 11/25/22 07:26 [facility] (Rec: 11/25/22 08:23 [facility] [id number]) OP Gait Assessment Comments Gait Comments Dec stance time on LLE and dec push off and some lat lean onto L w/ WB PT-OP-K Range of Motion Start: 11/24/22 17:53 Freq: Status: Active Protocol: Document 11/25/22 07:26 [facility] (Rec: 11/25/22 08:23 [facility] [id number]) Ankle and Foot Goniometric Range of Motion Ankle and Foot Right Active Dorsiflexion with Knee Flexed 9 Dorsiflexion with Knee Extended 3 Plantarflexion 50 Inversion 31 Eversion 11 Left Active Dorsiflexion with Knee Flexed 10 Dorsiflexion with Knee Extended 11 Plantarflexion 40 Inversion 5 Eversion 5 Comments lacking DF to neutral, 35 deg bunion PT-OP-M Strength Start: 11/24/22 17:53 Freq: Status: Active Protocol: Document 11/25/22 07:26 [facility] (Rec: 11/25/22 08:23 [facility] [id number]) Hip Strength Hip Manual Muscle Testing Right Flexion (L2) 4 Good Extension (S1) 3+ Fair+ Abduction 3+ Fair+ Adduction 4 Good External Rotation 4- Good- Internal Rotation 4+ Good+ Left Flexion (L2) 3+ Fair+ Extension (S1) 3 Fair Abduction 3+ Fair+ Adduction 4 Good External Rotation 3+ Fair+ Internal Rotation 3+ Fair+ Knee Strength Knee Manual Muscle Testing Right Flexion (S2) 4 Good Extension (L3) 4+ Good+ Left Flexion (S2) 4- Good- Extension (L3) 4- Good- Ankle/Foot Strength Ankle and Foot Manual Muscle Testing Right Dorsiflexion (L4) 5 Normal Plantarflexion (S1) 5 Normal Inversion 5 Normal Eversion (S1) 5 Normal Left Dorsiflexion (L4) 3+ Fair+ Plantarflexion (S1) 3+ Fair+ Inversion 3+ Fair+ Eversion (S1) 3+ Fair+ Comments PF tested seated B PT-OP-Q Treatments Start: 11/24/22 17:53 Freq: Status: Active Protocol: Document 12/25/22 11:06 [facility] (Rec: 12/25/22 12:10 [facility] [id number]) Gym Equipment Shuttle Balance blue clips Comments fwd: WBOS, NBOS & staggered stance B w/pertubations Therapeutic Exercises Supine Exercises hip rotation Supine Exercise Name IR/ER Side right Reps/Minutes 5 Standing Exercises DF Standing Exercise Name hands on counter Side bilateral Reps/Minutes 10 Comments cues no lean back Heel raises Side bilateral Reps/Minutes 10 stretch Standing Exercise Name zander Side bilateral Reps/Minutes 30 sec Gait Training Gait Activity walking Comments 1. working on walking w/focus on push off and arm swing- mirror cues 20ft x10 2. fast walking focus on push off and arm swing 50ft x6 Neuro Re-Education Treatment Balance Activities foam Equipment blue foam Comments WBOS, NBOS, staggered stance Bw/head turn and EC trials PT-OP-R Modalities Start: 11/24/22 17:53 Freq: Status: Active Protocol: Document 12/25/22 11:06 [facility] (Rec: 12/25/22 12:10 [facility] [id number]) Hot Pack/Cold Pack Treatment Cold Pack Location L ankle and R hip Patient Position Hooklying Treatment Duration (minutes) 10 PT-OP-T Assessment and Plan Start: 11/24/22 17:53 Freq: Status: Active Protocol: Document 12/25/22 11:06 [facility] (Rec: 12/25/22 12:10 [facility] [id number]) Physical Therapy Assessment Goals strength Short Term Goal (STG) Pt will be indep w/HEP STG Duration 01/03/23 Document Imaging Manager Goal (LTG) Pt will score at least 4+/5 on all MMT in order to improve stability of LE to improve ability to particpate in typical activities LTG Duration 02/17 ROM Short Term Goal (STG) Pt will have DF of L anlke ot at least 0 to show improved motion. STG Duration 01/04/23 Residential Goal (LTG) Pt will have full ROM of L ankle without inc pain in oreder to be able to inclines/ declines and stairs w/o pain LTG Duration 02/17 activity Short Term Goal (STG) Pt will be able to resume 1 mile walks w/1 pole without inc pain greater than 2/10 STG Duration 01/04 Document Imaging Manager Goal (LTG) Pt will be able to return to gardening, hiking without issues w/balance and without inc pain >1/10 LTG Duration 02/17 balance Residential Goal (LTG) Pt will be able to do SLS B 10 sec to show good stability LTG Duration 02/17 Assessment Summary Assessment Pt is improving w/ROM but does have toe out w/walking and was able to improve IR ROM manually at hip. Pt did well with balance activities today w/improved performance. pt improved w/gait w/cues Physical Therapy Plan Frequency and Duration Frequency of Treatment 1-2x/wk Duration of treatment (weeks) 12 Plan of Care Start Date 11/25/22 Plan of Care End Date 02/17/23 Next Visit Focus/Plan Next Note Type Treatment Note Next Visit Plan advance exercises, manual to calf and peroneals and plantar fascia
--- NOTE | 2022-12-29 12:08 | PT.OTN ---
Current Diagnoses Difficulty in walking, not elsewhere classified (12/29/22) Abnormal posture (12/29/22) Weakness (12/29/22) Other fracture of left lower leg, initial encounter for closed fracture (12/29/22) Physical Therapy Treatment Note PT-OP-A Visit Information Start: 11/24/22 17:53 Freq: Status: Active Protocol: Document 12/29/22 11:11 [facility] (Rec: 12/29/22 12:08 [facility] [id number]) Out-Patient Physical Therapy Visit Information Visit Information Visit Type Treatment Note Visit Note 04/30 Visit Start Time 11: Visit Stop Time 12:03 Total Visit Minutes 40 Visit Number 8 Number of COOK FRUIT Visits 0 PT-OP-B Current Condition Start: 11/24/22 17:53 Freq: Status: Active Protocol: Document 11/25/22 07:26 [facility] (Rec: 11/25/22 08:23 [facility] [id number]) Current Condition History of Current Condition Onset Date Sep 29 Current Complaints MIldly displaced lat malleolus fx History of Current Condition Pt broke her ankle when she was at her cabin in [place] and went for a walk after their long drive. The road was plowed and when she truned, she slipped and she thinks she went into signfiicant inversion. She couldn't get up so had to crawl .1 mile. She had on a trail boot which she thinks may habe made her break better. She has been frustrated because her recovery has been delayed.She had the boot on for 4 weeks. and now has a lace up and wrap ankle brace. She still has a lot of swelling. She has noticed that her L leg does not seem to function as she feels like it should. Her ankle has limited mobility and knee doesn't want to bend. She has been doing acupuncture for the past 4 weeks and that really helped. She saw another PT but decided to come here. She saw her for 3 weeks in Oct until the . Xrays 3 weeks ago and pt reports the MD was happy. Next Xray is next Thu. Pt is to wear the brace when on her feet. Last PT has her walking 15 min a day and she uses poles during the walk. Inside not using poles. Pt reports since wearing the boot her R hip has been givng her more trouble. Pt reports she does okay on stairs. She has been walkin gin her neighborhood and she has to go down a slope and that is tough to do. Treatment Goals Patient/Caregiver Goals Get back to hiking, walking, biking PT-OP-C Subjective Start: 11/24/22 17:53 Freq: Status: Active Protocol: Document 12/29/22 11:11 [facility] (Rec: 12/29/22 12:08 [facility] [id number]) OP-PT Subjective Patient Comments Patient Comments Pt reprots she has been compliant w/exercises and compression stockings. She went for a walk yesterday and as she got on with her day, her leg felt better. PT-OP-F Manual Assessment Start: 11/24/22 17:53 Freq: Status: Active Protocol: Document 11/25/22 07:26 [facility] (Rec: 11/25/22 08:23 [facility] [id number]) Manual Assessments Other Manual Assessments Other Manual Assessments significant swelling in L ankle and calf PT-OP-G Mobility & Gait Start: 11/24/22 17:53 Freq: Status: Active Protocol: Document 11/25/22 07:26 [facility] (Rec: 11/25/22 08:23 [facility] [id number]) OP Gait Assessment Comments Gait Comments Dec stance time on LLE and dec push off and some lat lean onto L w/ WB PT-OP-K Range of Motion Start: 11/24/22 17:53 Freq: Status: Active Protocol: Document 11/25/22 07:26 [facility] (Rec: 11/25/22 08:23 [facility] [id number]) Ankle and Foot Goniometric Range of Motion Ankle and Foot Right Active Dorsiflexion with Knee Flexed 9 Dorsiflexion with Knee Extended 3 Plantarflexion 50 Inversion 31 Eversion 11 Left Active Dorsiflexion with Knee Flexed 10 Dorsiflexion with Knee Extended 11 Plantarflexion 40 Inversion 5 Eversion 5 Comments lacking DF to neutral, 35 deg bunion PT-OP-M Strength Start: 11/24/22 17:53 Freq: Status: Active Protocol: Document 11/25/22 07:26 [facility] (Rec: 11/25/22 08:23 [facility] [id number]) Hip Strength Hip Manual Muscle Testing Right Flexion (L2) 4 Good Extension (S1) 3+ Fair+ Abduction 3+ Fair+ Adduction 4 Good External Rotation 4- Good- Internal Rotation 4+ Good+ Left Flexion (L2) 3+ Fair+ Extension (S1) 3 Fair Abduction 3+ Fair+ Adduction 4 Good External Rotation 3+ Fair+ Internal Rotation 3+ Fair+ Knee Strength Knee Manual Muscle Testing Right Flexion (S2) 4 Good Extension (L3) 4+ Good+ Left Flexion (S2) 4- Good- Extension (L3) 4- Good- Ankle/Foot Strength Ankle and Foot Manual Muscle Testing Right Dorsiflexion (L4) 5 Normal Plantarflexion (S1) 5 Normal Inversion 5 Normal Eversion (S1) 5 Normal Left Dorsiflexion (L4) 3+ Fair+ Plantarflexion (S1) 3+ Fair+ Inversion 3+ Fair+ Eversion (S1) 3+ Fair+ Comments PF tested seated B PT-OP-Q Treatments Start: 11/24/22 17:53 Freq: Status: Active Protocol: Document 12/29/22 11:11 [facility] (Rec: 12/29/22 12:08 [facility] [id number]) Gym Equipment Shuttle Balance red clips Comments fwd: WBOS, NBOS, staggered stance B side: WBOS, NBOS Manual Therapy Treatment Soft Tissue Mobilization ant tib Body Location L ant tib and fascia Mobilization Type Myofascial Release Intensity/Depth Superficial Comments APs Joint Mobilizations talus Joint distraiton & PA in PF Neuro Re-Education Treatment Balance Activities hurdles Equipment 6 hurdles Comments fwd over recip x8 QUALITY CONTROL INSPECTOR occ side step over x2 B tilt board Comments fwd & side: wt shifts PT-OP-R Modalities Start: 11/24/22 17:53 Freq: Status: Active Protocol: Document 12/25/22 11:06 [facility] (Rec: 12/25/22 12:10 [facility] [id number]) Hot Pack/Cold Pack Treatment Cold Pack Location L ankle and R hip Patient Position Hooklying Treatment Duration (minutes) 10 PT-OP-T Assessment and Plan Start: 11/24/22 17:53 Freq: Status: Active Protocol: Document 12/29/22 11:11 [facility] (Rec: 12/29/22 12:08 [facility] [id number]) Physical Therapy Assessment Goals strength Short Term Goal (STG) Pt will be indep w/HEP STG Duration 01/03/23 Scallop Dredger Goal (LTG) Pt will score at least 4+/5 on all MMT in order to improve stability of LE to improve ability to particpate in typical activities LTG Duration 02/17 ROM Short Term Goal (STG) Pt will have DF of L anlke ot at least 0 to show improved motion. STG Duration 01/04/23 Mcfp Goal (LTG) Pt will have full ROM of L ankle without inc pain in oreder to be able to inclines/ declines and stairs w/o pain LTG Duration 02/17 activity Short Term Goal (STG) Pt will be able to resume 1 mile walks w/1 pole without inc pain greater than 2/10 STG Duration 01/04 Scallop Dredger Goal (LTG) Pt will be able to return to gardening, hiking without issues w/balance and without inc pain >1/10 LTG Duration 02/17 balance Mcfp Goal (LTG) Pt will be able to do SLS B 10 sec to show good stability LTG Duration 02/17 Assessment Summary Assessment Pt did well with advanced balance exercises but did admit to them being diffcult and feeling uncomfortable mentally. She had much improved PF w/manual treatment . Physical Therapy Plan Frequency and Duration Frequency of Treatment 1-2x/wk Duration of treatment (weeks) 12 Plan of Care Start Date 11/25/22 Plan of Care End Date 02/17/23 Next Visit Focus/Plan Next Note Type Treatment Note Next Visit Plan advance exercises, manual to calf and peroneals and plantar fascia
--- NOTE | 2023-01-05 12:14 | PT.OTN ---
Current Diagnoses Difficulty in walking, not elsewhere classified (01/05/23) Abnormal posture (01/05/23) Weakness (01/05/23) Other fracture of left lower leg, initial encounter for closed fracture (01/05/23) Physical Therapy Treatment Note PT-OP-A Visit Information Start: 11/24/22 17:53 Freq: Status: Active Protocol: Document 01/05/23 11:21 [facility] (Rec: 01/05/23 12:14 [facility] [id number]) Out-Patient Physical Therapy Visit Information Visit Information Visit Type Treatment Note Visit Note 05/31 Visit Start Time 11:21 Visit Stop Time 12:10 Total Visit Minutes 49 Visit Number 9 Number of SOCIAL SCIENCE TEACHER Visits 0 PT-OP-B Current Condition Start: 11/24/22 17:53 Freq: Status: Active Protocol: Document 11/25/22 07:26 [facility] (Rec: 11/25/22 08:23 [facility] [id number]) Current Condition History of Current Condition Onset Date Sep 29 Current Complaints MIldly displaced lat malleolus fx History of Current Condition Pt broke her ankle when she was at her cabin in [place] and went for a walk after their long drive. The road was plowed and when she truned, she slipped and she thinks she went into signfiicant inversion. She couldn't get up so had to crawl .1 mile. She had on a trail boot which she thinks may habe made her break better. She has been frustrated because her recovery has been delayed.She had the boot on for 4 weeks. and now has a lace up and wrap ankle brace. She still has a lot of swelling. She has noticed that her L leg does not seem to function as she feels like it should. Her ankle has limited mobility and knee doesn't want to bend. She has been doing acupuncture for the past 4 weeks and that really helped. She saw another PT but decided to come here. She saw her for 3 weeks in Oct until the . Xrays 3 weeks ago and pt reports the MD was happy. Next Xray is next Thu. Pt is to wear the brace when on her feet. Last PT has her walking 15 min a day and she uses poles during the walk. Inside not using poles. Pt reports since wearing the boot her R hip has been givng her more trouble. Pt reports she does okay on stairs. She has been walkin gin her neighborhood and she has to go down a slope and that is tough to do. Treatment Goals Patient/Caregiver Goals Get back to hiking, walking, biking PT-OP-C Subjective Start: 11/24/22 17:53 Freq: Status: Active Protocol: Document 01/05/23 11:21 [facility] (Rec: 01/05/23 12:14 [facility] [id number]) OP-PT Subjective Patient Comments Patient Comments Pt reports she did a lot of fascial work and overdid exercises so is a little sore. PT-OP-F Manual Assessment Start: 11/24/22 17:53 Freq: Status: Active Protocol: Document 11/25/22 07:26 [facility] (Rec: 11/25/22 08:23 [facility] [id number]) Manual Assessments Other Manual Assessments Other Manual Assessments significant swelling in L ankle and calf PT-OP-G Mobility & Gait Start: 11/24/22 17:53 Freq: Status: Active Protocol: Document 11/25/22 07:26 [facility] (Rec: 11/25/22 08:23 [facility] [id number]) OP Gait Assessment Comments Gait Comments Dec stance time on LLE and dec push off and some lat lean onto L w/ WB PT-OP-K Range of Motion Start: 11/24/22 17:53 Freq: Status: Active Protocol: Document 11/25/22 07:26 [facility] (Rec: 11/25/22 08:23 [facility] [id number]) Ankle and Foot Goniometric Range of Motion Ankle and Foot Right Active Dorsiflexion with Knee Flexed 9 Dorsiflexion with Knee Extended 3 Plantarflexion 50 Inversion 31 Eversion 11 Left Active Dorsiflexion with Knee Flexed 10 Dorsiflexion with Knee Extended 11 Plantarflexion 40 Inversion 5 Eversion 5 Comments lacking DF to neutral, 35 deg bunion PT-OP-M Strength Start: 11/24/22 17:53 Freq: Status: Active Protocol: Document 11/25/22 07:26 [facility] (Rec: 11/25/22 08:23 [facility] [id number]) Hip Strength Hip Manual Muscle Testing Right Flexion (L2) 4 Good Extension (S1) 3+ Fair+ Abduction 3+ Fair+ Adduction 4 Good External Rotation 4- Good- Internal Rotation 4+ Good+ Left Flexion (L2) 3+ Fair+ Extension (S1) 3 Fair Abduction 3+ Fair+ Adduction 4 Good External Rotation 3+ Fair+ Internal Rotation 3+ Fair+ Knee Strength Knee Manual Muscle Testing Right Flexion (S2) 4 Good Extension (L3) 4+ Good+ Left Flexion (S2) 4- Good- Extension (L3) 4- Good- Ankle/Foot Strength Ankle and Foot Manual Muscle Testing Right Dorsiflexion (L4) 5 Normal Plantarflexion (S1) 5 Normal Inversion 5 Normal Eversion (S1) 5 Normal Left Dorsiflexion (L4) 3+ Fair+ Plantarflexion (S1) 3+ Fair+ Inversion 3+ Fair+ Eversion (S1) 3+ Fair+ Comments PF tested seated B PT-OP-Q Treatments Start: 11/24/22 17:53 Freq: Status: Active Protocol: Document 01/05/23 11:21 [facility] (Rec: 01/05/23 12:14 [facility] [id number]) Gym Equipment Shuttle Balance red clips Comments fwd: WBOS w/head turns, NBOS, staggered stance B side: WBOS, NBOS Manual Therapy Treatment Soft Tissue Mobilization ant tib Body Location L ant tib and fascia Mobilization Type Myofascial Release Intensity/Depth Superficial Comments APs Joint Mobilizations MTP Comments 1st & 2nd distraction & AP FM talus Joint distraiton & PA in PF calcaneus Joint R distraction FM & lat glide FM PT-OP-R Modalities Start: 11/24/22 17:53 Freq: Status: Active Protocol: Document 01/05/23 11:21 [facility] (Rec: 01/05/23 12:14 [facility] [id number]) Hot Pack/Cold Pack Treatment Cold Pack Location L ankle Patient Position Hooklying Treatment Duration (minutes) 10 PT-OP-T Assessment and Plan Start: 11/24/22 17:53 Freq: Status: Active Protocol: Document 01/05/23 11:21 [facility] (Rec: 01/05/23 12:14 [facility] [id number]) Physical Therapy Assessment Goals strength Short Term Goal (STG) Pt will be indep w/HEP STG Duration 01/03/23 Manager Education Goal (LTG) Pt will score at least 4+/5 on all MMT in order to improve stability of LE to improve ability to particpate in typical activities LTG Duration 02/17 ROM Short Term Goal (STG) Pt will have DF of L anlke ot at least 0 to show improved motion. STG Duration 01/04/23 Halfway Goal (LTG) Pt will have full ROM of L ankle without inc pain in oreder to be able to inclines/ declines and stairs w/o pain LTG Duration 02/17 activity Short Term Goal (STG) Pt will be able to resume 1 mile walks w/1 pole without inc pain greater than 2/10 STG Duration 01/04 Manager Education Goal (LTG) Pt will be able to return to gardening, hiking without issues w/balance and without inc pain >1/10 LTG Duration 02/17 balance Manager Education Goal (LTG) Pt will be able to do SLS B 10 sec to show good stability LTG Duration 02/17 Assessment Summary Assessment Pt did well w/balance but was more sore today, so less standing was done.S he is imprvoing overall in her range . Physical Therapy Plan Next Visit Focus/Plan Next Note Type Progress Note Next Visit Plan advance exercises, manual to calf and peroneals and plantar fascia
--- NOTE | 2023-01-12 13:02 | PT.OTN ---
Current Diagnoses Difficulty in walking, not elsewhere classified (01/12/23) Abnormal posture (01/12/23) Weakness (01/12/23) Other fracture of left lower leg, initial encounter for closed fracture (01/12/23) Physical Therapy Treatment Note PT-OP-A Visit Information Start: 11/24/22 17:53 Freq: Status: Active Protocol: Document 01/12/23 11:24 [facility] (Rec: 01/12/23 12:24 [facility] [id number]) Out-Patient Physical Therapy Visit Information Visit Information Visit Type Progress Note Visit Note 09/30 Visit Start Time 11:22 Visit Stop Time 12:02 Total Visit Minutes 40 Visit Number 10 Number of DEMAND PLANNING ANALYST Visits 0 PT-OP-B Current Condition Start: 11/24/22 17:53 Freq: Status: Active Protocol: Document 11/25/22 07:26 [facility] (Rec: 11/25/22 08:23 [facility] [id number]) Current Condition History of Current Condition Onset Date Sep 29 Current Complaints MIldly displaced lat malleolus fx History of Current Condition Pt broke her ankle when she was at her cabin in [place] and went for a walk after their long drive. The road was plowed and when she truned, she slipped and she thinks she went into signfiicant inversion. She couldn't get up so had to crawl .1 mile. She had on a trail boot which she thinks may habe made her break better. She has been frustrated because her recovery has been delayed.She had the boot on for 4 weeks. and now has a lace up and wrap ankle brace. She still has a lot of swelling. She has noticed that her L leg does not seem to function as she feels like it should. Her ankle has limited mobility and knee doesn't want to bend. She has been doing acupuncture for the past 4 weeks and that really helped. She saw another PT but decided to come here. She saw her for 3 weeks in Oct until the . Xrays 3 weeks ago and pt reports the MD was happy. Next Xray is next Thu. Pt is to wear the brace when on her feet. Last PT has her walking 15 min a day and she uses poles during the walk. Inside not using poles. Pt reports since wearing the boot her R hip has been givng her more trouble. Pt reports she does okay on stairs. She has been walkin gin her neighborhood and she has to go down a slope and that is tough to do. Treatment Goals Patient/Caregiver Goals Get back to hiking, walking, biking PT-OP-C Subjective Start: 11/24/22 17:53 Freq: Status: Active Protocol: Document 01/12/23 11:24 [facility] (Rec: 01/12/23 12:24 [facility] [id number]) OP-PT Subjective Patient Comments Patient Comments Pt reports she is frustrated it takes so long to recover PT-OP-F Manual Assessment Start: 11/24/22 17:53 Freq: Status: Active Protocol: Document 11/25/22 07:26 [facility] (Rec: 11/25/22 08:23 [facility] [id number]) Manual Assessments Other Manual Assessments Other Manual Assessments significant swelling in L ankle and calf PT-OP-G Mobility & Gait Start: 11/24/22 17:53 Freq: Status: Active Protocol: Document 11/25/22 07:26 [facility] (Rec: 11/25/22 08:23 [facility] [id number]) OP Gait Assessment Comments Gait Comments Dec stance time on LLE and dec push off and some lat lean onto L w/ WB PT-OP-K Range of Motion Start: 11/24/22 17:53 Freq: Status: Active Protocol: Document 01/12/23 11:24 [facility] (Rec: 01/12/23 12:24 [facility] [id number]) Ankle and Foot Goniometric Range of Motion Ankle and Foot Left Active Dorsiflexion with Knee Flexed 5 Dorsiflexion with Knee Extended 3 Plantarflexion 49 Inversion 15 Eversion 12 PT-OP-M Strength Start: 11/24/22 17:53 Freq: Status: Active Protocol: Document 01/12/23 11:24 [facility] (Rec: 01/12/23 12:24 [facility] [id number]) Hip Strength Hip Manual Muscle Testing Right Flexion (L2) 4 Good Extension (S1) 3+ Fair+ Abduction 3+ Fair+ Adduction 5 Normal External Rotation 4 Good Internal Rotation 4+ Good+ Left Flexion (L2) 4 Good Extension (S1) 3+ Fair+ Abduction 4- Good- Adduction 5 Normal External Rotation 4 Good Internal Rotation 4+ Good+ Knee Strength Knee Manual Muscle Testing Right Flexion (S2) 4+ Good+ Extension (L3) 4+ Good+ Left Flexion (S2) 4+ Good+ Extension (L3) 4+ Good+ Ankle/Foot Strength Ankle and Foot Manual Muscle Testing Right Dorsiflexion (L4) 5 Normal Plantarflexion (S1) 5 Normal Inversion 5 Normal Eversion (S1) 5 Normal Comments 20 heel raises Left Dorsiflexion (L4) 4+ Good+ Plantarflexion (S1) 3- Fair- Inversion 3+ Fair+ Eversion (S1) 4 Good Comments PF tested seated L as unable to do heel raise now PT-OP-Q Treatments Start: 11/24/22 17:53 Freq: Status: Active Protocol: Document 01/12/23 11:24 [facility] (Rec: 01/12/23 12:24 [facility] [id number]) Therapeutic Exercises Supine Exercises core Supine Exercise Name DL press Side bilateral Reps/Minutes 30 sec bridge Side bilateral Reps/Minutes 15 secx2 Comments cues for knees over toes Prone Exercises hip ext Side bilateral Reps/Minutes 10 ea Comments alt cues for form Sidelying Exercises abd Side bilateral Reps/Minutes 12 clamshell Side bilateral Reps/Minutes 12 Manual Therapy Treatment Soft Tissue Mobilization fascial release Body Location L med ankle Mobilization Type Myofascial Release Intensity/Depth Superficial Comments w/inversion/eversion PT-OP-R Modalities Start: 11/24/22 17:53 Freq: Status: Active Protocol: Document 01/05/23 11:21 [facility] (Rec: 01/05/23 12:14 [facility] [id number]) Hot Pack/Cold Pack Treatment Cold Pack Location L ankle Patient Position Hooklying Treatment Duration (minutes) 10 PT-OP-T Assessment and Plan Start: 11/24/22 17:53 Freq: Status: Active Protocol: Document 01/12/23 11:24 [facility] (Rec: 01/12/23 12:24 [facility] [id number]) Physical Therapy Assessment Goals strength Short Term Goal (STG) Pt will be indep w/HEP STG Duration achieved advancing as able Glassblower Goal (LTG) Pt will score at least 4+/5 on all MMT in order to improve stability of LE to improve ability to particpate in typical activities 01/12-improving LTG Duration 03/21 ROM Short Term Goal (STG) Pt will have DF of L anlke ot at least 0 to show improved motion. STG Duration achieved Senior Living Goal (LTG) Pt will have full ROM of L ankle without inc pain in oreder to be able to inclines/ declines and stairs w/o pain 01/12-up has been ok. slow on down; ROM still limited LTG Duration 03/23 activity Short Term Goal (STG) Pt will be able to resume 1 mile walks w/1 pole without inc pain greater than 2/10 STG Duration achieved Glassblower Goal (LTG) Pt will be able to return to gardening, hiking without issues w/balance and without inc pain >1/10 01/12-1 mile walks and pt doing gardening w/soreness LTG Duration 03/21 balance Senior Living Goal (LTG) Pt will be able to do SLS B 10 sec to show good stability 01/12-L 1 sec; R 6 sec LTG Duration 03/23 Assessment Summary Assessment Pt had imrpoved inversion after manual treatment and was able to do the ROM comfortably after. She is advancing well with PT and is showing much improved ROM and is advancing w/strength and functional ability. Pt is still limited w/strength, balanec and ROM which limits her functional ability and would benefit from cont PT to work on this. Physical Therapy Plan Frequency and Duration Frequency of Treatment 1x/Week Duration of treatment (weeks) 10 Plan of Care Start Date 01/12/23 Plan of Care End Date 03/23/23 Therapeutic Interventions Therapeutic Interventions Aquatic Therapy,Balance Training,Gait Training,Home Exercise Program,Joint Mobilizations,Manual Therapy, Neuromuscular Re-education, Orthotic/Prosthetic Management ,Patient/Caregiver Education, Self-Care/Home Management,Soft Tissue Mobilization,Taping, Therapeutic Activities, Therapeutic Exercises Modalities Cold Pack/Ice Massage,Electric Stimulation,Hot Packs, Infrared Therapy,Iontophoresis ,Traction- Mechanical, Ultrasound Next Visit Focus/Plan Next Note Type Treatment Note Next Visit Plan advance exercises, manual to calf and peroneals and plantar fascia
--- NOTE | 2023-01-19 11:53 | PT.OTN ---
Current Diagnoses Difficulty in walking, not elsewhere classified (01/19/23) Abnormal posture (01/19/23) Weakness (01/19/23) Other fracture of left lower leg, initial encounter for closed fracture (01/19/23) Physical Therapy Treatment Note PT-OP-A Visit Information Start: 11/24/22 17:53 Freq: Status: Active Protocol: Document 01/19/23 10:51 [facility] (Rec: 01/19/23 11:53 [facility] [id number]) Out-Patient Physical Therapy Visit Information Visit Information Visit Type Treatment Note Visit Note 10/31 Visit Start Time 10:51 Visit Stop Time 11:34 Total Visit Minutes 43 Visit Number 11 Number of GLASS INSTALLER TECHNICIAN Visits 0 PT-OP-B Current Condition Start: 11/24/22 17:53 Freq: Status: Active Protocol: Document 11/25/22 07:26 [facility] (Rec: 11/25/22 08:23 [facility] [id number]) Current Condition History of Current Condition Onset Date Sep 29 Current Complaints MIldly displaced lat malleolus fx History of Current Condition Pt broke her ankle when she was at her cabin in [place] and went for a walk after their long drive. The road was plowed and when she truned, she slipped and she thinks she went into signfiicant inversion. She couldn't get up so had to crawl .1 mile. She had on a trail boot which she thinks may habe made her break better. She has been frustrated because her recovery has been delayed.She had the boot on for 4 weeks. and now has a lace up and wrap ankle brace. She still has a lot of swelling. She has noticed that her L leg does not seem to function as she feels like it should. Her ankle has limited mobility and knee doesn't want to bend. She has been doing acupuncture for the past 4 weeks and that really helped. She saw another PT but decided to come here. She saw her for 3 weeks in Oct until the . Xrays 3 weeks ago and pt reports the MD was happy. Next Xray is next Thu. Pt is to wear the brace when on her feet. Last PT has her walking 15 min a day and she uses poles during the walk. Inside not using poles. Pt reports since wearing the boot her R hip has been givng her more trouble. Pt reports she does okay on stairs. She has been walkin gin her neighborhood and she has to go down a slope and that is tough to do. Treatment Goals Patient/Caregiver Goals Get back to hiking, walking, biking PT-OP-C Subjective Start: 11/24/22 17:53 Freq: Status: Active Protocol: Document 01/19/23 10:51 [facility] (Rec: 01/19/23 11:53 [facility] [id number]) OP-PT Subjective Patient Comments Patient Comments Pt reports she was doing great until and walked slowly at a garden w/friends and her L foot was hurting so put her leg up on the chair and has had pain into L buttocks and down (mostly lat leg). L knee can hurt all the way around and icing the knee helps. PT-OP-F Manual Assessment Start: 11/24/22 17:53 Freq: Status: Active Protocol: Document 11/25/22 07:26 [facility] (Rec: 11/25/22 08:23 [facility] [id number]) Manual Assessments Other Manual Assessments Other Manual Assessments significant swelling in L ankle and calf PT-OP-G Mobility & Gait Start: 11/24/22 17:53 Freq: Status: Active Protocol: Document 11/25/22 07:26 [facility] (Rec: 11/25/22 08:23 [facility] [id number]) OP Gait Assessment Comments Gait Comments Dec stance time on LLE and dec push off and some lat lean onto L w/ WB PT-OP-K Range of Motion Start: 11/24/22 17:53 Freq: Status: Active Protocol: Document 01/12/23 11:24 [facility] (Rec: 01/12/23 12:24 [facility] [id number]) Ankle and Foot Goniometric Range of Motion Ankle and Foot Left Active Dorsiflexion with Knee Flexed 5 Dorsiflexion with Knee Extended 3 Plantarflexion 49 Inversion 15 Eversion 12 PT-OP-M Strength Start: 11/24/22 17:53 Freq: Status: Active Protocol: Document 01/12/23 11:24 [facility] (Rec: 01/12/23 12:24 [facility] [id number]) Hip Strength Hip Manual Muscle Testing Right Flexion (L2) 4 Good Extension (S1) 3+ Fair+ Abduction 3+ Fair+ Adduction 5 Normal External Rotation 4 Good Internal Rotation 4+ Good+ Left Flexion (L2) 4 Good Extension (S1) 3+ Fair+ Abduction 4- Good- Adduction 5 Normal External Rotation 4 Good Internal Rotation 4+ Good+ Knee Strength Knee Manual Muscle Testing Right Flexion (S2) 4+ Good+ Extension (L3) 4+ Good+ Left Flexion (S2) 4+ Good+ Extension (L3) 4+ Good+ Ankle/Foot Strength Ankle and Foot Manual Muscle Testing Right Dorsiflexion (L4) 5 Normal Plantarflexion (S1) 5 Normal Inversion 5 Normal Eversion (S1) 5 Normal Comments 20 heel raises Left Dorsiflexion (L4) 4+ Good+ Plantarflexion (S1) 3- Fair- Inversion 3+ Fair+ Eversion (S1) 4 Good Comments PF tested seated L as unable to do heel raise now PT-OP-Q Treatments Start: 11/24/22 17:53 Freq: Status: Active Protocol: Document 01/19/23 10:51 [facility] (Rec: 01/19/23 11:53 [facility] [id number]) Therapeutic Exercises Sitting Exercises arch lift Side left Reps/Minutes 10 Comments attempted standing but pt cannot do well Manual Therapy Treatment Joint Mobilizations hip Joint L inf FM lumbar Comments gapping L4-S1 FM L in s/l PNF midfoot Joint L Comments 1. navicular over foam roll med and antglide FM 2. cuneiform 1 med glide FM tibfib Joint AP Tib FM talus Joint distraction in DF FM calcaneus Joint R distraction FM & lat glide FM Neuro Re-Education Treatment Other Activities facilitation Comments LLE flex, add ER DF pattern prolonged hold PNF Comments 1. ant elevation sustained hold progress w/irradiation fro L scap ant elevation to mass flex w/COI dissociation btwn the 2 progressed to L sustained hold ant elevation w /flex, add ER DF pattern Self-Care/Home Management Treatment Education Other Education edut o wear compression on L d /t inc swelling. postural adjustments in mirrorx5 min PT-OP-R Modalities Start: 11/24/22 17:53 Freq: Status: Active Protocol: Document 01/05/23 11:21 [facility] (Rec: 01/05/23 12:14 [facility] [id number]) Hot Pack/Cold Pack Treatment Cold Pack Location L ankle Patient Position Hooklying Treatment Duration (minutes) 10 PT-OP-T Assessment and Plan Start: 11/24/22 17:53 Freq: Status: Active Protocol: Document 01/19/23 10:51 [facility] (Rec: 01/19/23 11:53 [facility] [id number]) Physical Therapy Assessment Goals strength Short Term Goal (STG) Pt will be indep w/HEP STG Duration achieved advancing as able Shelter Goal (LTG) Pt will score at least 4+/5 on all MMT in order to improve stability of LE to improve ability to particpate in typical activities 01/12-improving LTG Duration 03/21 ROM Short Term Goal (STG) Pt will have DF of L anlke ot at least 0 to show improved motion. STG Duration achieved Shelter Goal (LTG) Pt will have full ROM of L ankle without inc pain in oreder to be able to inclines/ declines and stairs w/o pain 01/12-up has been ok. slow on down; ROM still limited LTG Duration 03/23 activity Short Term Goal (STG) Pt will be able to resume 1 mile walks w/1 pole without inc pain greater than 2/10 STG Duration achieved Shelter Goal (LTG) Pt will be able to return to gardening, hiking without issues w/balance and without inc pain >1/10 01/12-1 mile walks and pt doing gardening w/soreness LTG Duration 03/21 balance Shelter Goal (LTG) Pt will be able to do SLS B 10 sec to show good stability 01/12-L 1 sec; R 6 sec LTG Duration 03/23 Assessment Summary Assessment Pt had less pain in standing after manula nd noted no longer pain down leg but still some in knee and ant ankle. She did have a lot omore swelling in L ankle and has not worn compression socks for the past 3 days so discussed importance. She had difficulty w/the arch lift and was givent his for home. Iproved wt bearing over L side after manual. Physical Therapy Plan Frequency and Duration Frequency of Treatment 1x/Week Duration of treatment (weeks) 10 Plan of Care Start Date 01/12/23 Plan of Care End Date 03/23/23 Next Visit Focus/Plan Next Note Type Treatment Note Next Visit Plan [place] hip exercises, manual to calf and peroneals and plantar fascia
--- NOTE | 2023-01-26 12:05 | PT.OTN ---
Current Diagnoses Difficulty in walking, not elsewhere classified (01/26/23) Abnormal posture (01/26/23) Weakness (01/26/23) Other fracture of left lower leg, initial encounter for closed fracture (01/26/23) Physical Therapy Treatment Note PT-OP-A Visit Information Start: 11/24/22 17:53 Freq: Status: Active Protocol: Document 01/26/23 10:46 [facility] (Rec: 01/26/23 12:05 [facility] [id number]) Out-Patient Physical Therapy Visit Information Visit Information Visit Type Treatment Note Visit Note 11/28 Visit Start Time 10:49 Visit Stop Time 10:31 Total Visit Minutes 42 Visit Number 12 Number of SWITCHBOARD TROUBLESHOOTER Visits 0 PT-OP-B Current Condition Start: 11/24/22 17:53 Freq: Status: Active Protocol: Document 11/25/22 07:26 [facility] (Rec: 11/25/22 08:23 [facility] [id number]) Current Condition History of Current Condition Onset Date Sep 29 Current Complaints MIldly displaced lat malleolus fx History of Current Condition Pt broke her ankle when she was at her cabin in [place] and went for a walk after their long drive. The road was plowed and when she truned, she slipped and she thinks she went into signfiicant inversion. She couldn't get up so had to crawl .1 mile. She had on a trail boot which she thinks may habe made her break better. She has been frustrated because her recovery has been delayed.She had the boot on for 4 weeks. and now has a lace up and wrap ankle brace. She still has a lot of swelling. She has noticed that her L leg does not seem to function as she feels like it should. Her ankle has limited mobility and knee doesn't want to bend. She has been doing acupuncture for the past 4 weeks and that really helped. She saw another PT but decided to come here. She saw her for 3 weeks in Oct until the . Xrays 3 weeks ago and pt reports the MD was happy. Next Xray is next Thu. Pt is to wear the brace when on her feet. Last PT has her walking 15 min a day and she uses poles during the walk. Inside not using poles. Pt reports since wearing the boot her R hip has been givng her more trouble. Pt reports she does okay on stairs. She has been walkin gin her neighborhood and she has to go down a slope and that is tough to do. Treatment Goals Patient/Caregiver Goals Get back to hiking, walking, biking PT-OP-C Subjective Start: 11/24/22 17:53 Freq: Status: Active Protocol: Document 01/26/23 10:46 [facility] (Rec: 01/26/23 12:05 [facility] [id number]) OP-PT Subjective Patient Comments Patient Comments Pt reports she feels much better. She did some research and thinks it was her piriformis. She has been doing hip exercises and feels like it helps. Has returned to walking. She did 3/4 mile recently. She feels like quads and glutes are getting stronger again which is helping her gait. Ankle is feeling better PT-OP-F Manual Assessment Start: 11/24/22 17:53 Freq: Status: Active Protocol: Document 11/25/22 07:26 [facility] (Rec: 11/25/22 08:23 [facility] [id number]) Manual Assessments Other Manual Assessments Other Manual Assessments significant swelling in L ankle and calf PT-OP-G Mobility & Gait Start: 11/24/22 17:53 Freq: Status: Active Protocol: Document 11/25/22 07:26 [facility] (Rec: 11/25/22 08:23 [facility] [id number]) OP Gait Assessment Comments Gait Comments Dec stance time on LLE and dec push off and some lat lean onto L w/ WB PT-OP-K Range of Motion Start: 11/24/22 17:53 Freq: Status: Active Protocol: Document 01/12/23 11:24 [facility] (Rec: 01/12/23 12:24 [facility] [id number]) Ankle and Foot Goniometric Range of Motion Ankle and Foot Left Active Dorsiflexion with Knee Flexed 5 Dorsiflexion with Knee Extended 3 Plantarflexion 49 Inversion 15 Eversion 12 PT-OP-M Strength Start: 11/24/22 17:53 Freq: Status: Active Protocol: Document 01/12/23 11:24 [facility] (Rec: 01/12/23 12:24 [facility] [id number]) Hip Strength Hip Manual Muscle Testing Right Flexion (L2) 4 Good Extension (S1) 3+ Fair+ Abduction 3+ Fair+ Adduction 5 Normal External Rotation 4 Good Internal Rotation 4+ Good+ Left Flexion (L2) 4 Good Extension (S1) 3+ Fair+ Abduction 4- Good- Adduction 5 Normal External Rotation 4 Good Internal Rotation 4+ Good+ Knee Strength Knee Manual Muscle Testing Right Flexion (S2) 4+ Good+ Extension (L3) 4+ Good+ Left Flexion (S2) 4+ Good+ Extension (L3) 4+ Good+ Ankle/Foot Strength Ankle and Foot Manual Muscle Testing Right Dorsiflexion (L4) 5 Normal Plantarflexion (S1) 5 Normal Inversion 5 Normal Eversion (S1) 5 Normal Comments 20 heel raises Left Dorsiflexion (L4) 4+ Good+ Plantarflexion (S1) 3- Fair- Inversion 3+ Fair+ Eversion (S1) 4 Good Comments PF tested seated L as unable to do heel raise now PT-OP-Q Treatments Start: 11/24/22 17:53 Freq: Status: Active Protocol: Document 01/26/23 10:46 [facility] (Rec: 01/26/23 12:05 [facility] [id number]) Therapeutic Exercises Supine Exercises core Supine Exercise Name DL press Side bilateral Reps/Minutes 30 sec Comments inc time for set up bridge Side bilateral Reps/Minutes 5 secx6 Comments cues for knees over toes Prone Exercises hip ext Comments DC d/t irritates reflux Sidelying Exercises abd Side bilateral Reps/Minutes 5 clamshell Side bilateral Reps/Minutes 10 Standing Exercises gait at wall Standing Exercise Name L hip ext, knee ext & R flex add ER pattern w/DF Reps/Minutes 10s ec x4 Comments PT facilitated initially step down Standing Exercise Name w/rail Side left Equipment Used 4 in step, 6 in step Reps/Minutes 8 ea Manual Therapy Treatment Joint Mobilizations cuboid Joint L PA and gappign FM talus Joint PA FM talus & med glide FM calcaneus Joint L distraction in PF Neuro Re-Education Treatment Balance Activities SLS Details SLS trials B Other Activities PNF Comments 1. ant elevation L sustained hold pelvis progressed to COI w/LE w/hold at foot PT-OP-R Modalities Start: 11/24/22 17:53 Freq: Status: Active Protocol: Document 01/05/23 11:21 [facility] (Rec: 01/05/23 12:14 [facility] [id number]) Hot Pack/Cold Pack Treatment Cold Pack Location L ankle Patient Position Hooklying Treatment Duration (minutes) 10 PT-OP-T Assessment and Plan Start: 11/24/22 17:53 Freq: Status: Active Protocol: Document 01/26/23 10:46 [facility] (Rec: 01/26/23 12:05 [facility] [id number]) Physical Therapy Assessment Goals strength Short Term Goal (STG) Pt will be indep w/HEP STG Duration achieved advancing as able [place] Goal (LTG) Pt will score at least 4+/5 on all MMT in order to improve stability of LE to improve ability to particpate in typical activities 01/12-improving LTG Duration 03/21 ROM Short Term Goal (STG) Pt will have DF of L anlke ot at least 0 to show improved motion. STG Duration achieved Longterm Goal (LTG) Pt will have full ROM of L ankle without inc pain in oreder to be able to inclines/ declines and stairs w/o pain 01/12-up has been ok. slow on down; ROM still limited LTG Duration 03/23 activity Short Term Goal (STG) Pt will be able to resume 1 mile walks w/1 pole without inc pain greater than 2/10 STG Duration achieved [place] Goal (LTG) Pt will be able to return to gardening, hiking without issues w/balance and without inc pain >1/10 01/12-1 mile walks and pt doing gardening w/soreness LTG Duration 03/21 balance [place] Goal (LTG) Pt will be able to do SLS B 10 sec to show good stability 01/12-L 1 sec; R 6 sec LTG Duration 03/23 Assessment Summary Assessment Pt did well with activities but does have dec LLE connection to trunk and has weakness of LLE. She still has difficulty w/SL balance activties and [facility] ont tow rok on this at home.She required some cues w/hip exercises. Physical Therapy Plan Frequency and Duration Frequency of Treatment 1x/Week Duration of treatment (weeks) 10 Plan of Care Start Date 01/12/23 Plan of Care End Date 03/23/23 Next Visit Focus/Plan Next Note Type Treatment Note Next Visit Plan Review hip exercises prn, manual to calf and peroneals and plantar fascia
--- NOTE | 2023-02-02 10:48 | PT.OTN ---
Current Diagnoses Difficulty in walking, not elsewhere classified (02/02/23) Abnormal posture (02/02/23) Weakness (02/02/23) Other fracture of left lower leg, initial encounter for closed fracture (02/02/23) Physical Therapy Treatment Note PT-OP-A Visit Information Start: 11/24/22 17:53 Freq: Status: Active Protocol: Document 02/02/23 10:03 [facility] (Rec: 02/02/23 10:48 [facility] [id number]) Out-Patient Physical Therapy Visit Information Visit Information Visit Type Treatment Note Visit Note 12/29 Visit Start Time 10:03 Visit Stop Time 10:44 Total Visit Minutes 41 Visit Number 13 Number of PHARMACOGENETICIST Visits 0 PT-OP-B Current Condition Start: 11/24/22 17:53 Freq: Status: Active Protocol: Document 11/25/22 07:26 [facility] (Rec: 11/25/22 08:23 [facility] [id number]) Current Condition History of Current Condition Onset Date Sep 29 Current Complaints MIldly displaced lat malleolus fx History of Current Condition Pt broke her ankle when she was at her cabin in [place] and went for a walk after their long drive. The road was plowed and when she truned, she slipped and she thinks she went into signfiicant inversion. She couldn't get up so had to crawl .1 mile. She had on a trail boot which she thinks may habe made her break better. She has been frustrated because her recovery has been delayed.She had the boot on for 4 weeks. and now has a lace up and wrap ankle brace. She still has a lot of swelling. She has noticed that her L leg does not seem to function as she feels like it should. Her ankle has limited mobility and knee doesn't want to bend. She has been doing acupuncture for the past 4 weeks and that really helped. She saw another PT but decided to come here. She saw her for 3 weeks in Oct until the . Xrays 3 weeks ago and pt reports the MD was happy. Next Xray is next Thu. Pt is to wear the brace when on her feet. Last PT has her walking 15 min a day and she uses poles during the walk. Inside not using poles. Pt reports since wearing the boot her R hip has been givng her more trouble. Pt reports she does okay on stairs. She has been walkin gin her neighborhood and she has to go down a slope and that is tough to do. Treatment Goals Patient/Caregiver Goals Get back to hiking, walking, biking PT-OP-C Subjective Start: 11/24/22 17:53 Freq: Status: Active Protocol: Document 02/02/23 10:03 [facility] (Rec: 02/02/23 10:48 [facility] [id number]) OP-PT Subjective Patient Comments Patient Comments Pt reports she had more activity on sat than had in several months. She walked up the road at [facility] to the [facility]. she walked on rocks and did okay. She did a lot fo walking thursday too. PT-OP-F Manual Assessment Start: 11/24/22 17:53 Freq: Status: Active Protocol: Document 11/25/22 07:26 [facility] (Rec: 11/25/22 08:23 [facility] [id number]) Manual Assessments Other Manual Assessments Other Manual Assessments significant swelling in L ankle and calf PT-OP-G Mobility & Gait Start: 11/24/22 17:53 Freq: Status: Active Protocol: Document 11/25/22 07:26 [facility] (Rec: 11/25/22 08:23 [facility] [id number]) OP Gait Assessment Comments Gait Comments Dec stance time on LLE and dec push off and some lat lean onto L w/ WB PT-OP-K Range of Motion Start: 11/24/22 17:53 Freq: Status: Active Protocol: Document 01/12/23 11:24 [facility] (Rec: 01/12/23 12:24 [facility] [id number]) Ankle and Foot Goniometric Range of Motion Ankle and Foot Left Active Dorsiflexion with Knee Flexed 5 Dorsiflexion with Knee Extended 3 Plantarflexion 49 Inversion 15 Eversion 12 PT-OP-M Strength Start: 11/24/22 17:53 Freq: Status: Active Protocol: Document 01/12/23 11:24 [facility] (Rec: 01/12/23 12:24 [facility] [id number]) Hip Strength Hip Manual Muscle Testing Right Flexion (L2) 4 Good Extension (S1) 3+ Fair+ Abduction 3+ Fair+ Adduction 5 Normal External Rotation 4 Good Internal Rotation 4+ Good+ Left Flexion (L2) 4 Good Extension (S1) 3+ Fair+ Abduction 4- Good- Adduction 5 Normal External Rotation 4 Good Internal Rotation 4+ Good+ Knee Strength Knee Manual Muscle Testing Right Flexion (S2) 4+ Good+ Extension (L3) 4+ Good+ Left Flexion (S2) 4+ Good+ Extension (L3) 4+ Good+ Ankle/Foot Strength Ankle and Foot Manual Muscle Testing Right Dorsiflexion (L4) 5 Normal Plantarflexion (S1) 5 Normal Inversion 5 Normal Eversion (S1) 5 Normal Comments 20 heel raises Left Dorsiflexion (L4) 4+ Good+ Plantarflexion (S1) 3- Fair- Inversion 3+ Fair+ Eversion (S1) 4 Good Comments PF tested seated L as unable to do heel raise now PT-OP-Q Treatments Start: 11/24/22 17:53 Freq: Status: Active Protocol: Document 02/02/23 10:03 [facility] (Rec: 02/02/23 10:48 [facility] [id number]) Gym Equipment Shuttle Recovery Unilateral Squats Details B Resistance 50# Shuttle Recovery Platform Unstable Reps/Time 15 Therapeutic Exercises Standing Exercises self mob Standing Exercise Name fwd lean for ankle mob & band around ant ankle Side left Equipment Used purple band around ankles w/6 in step & rails Reps/Minutes 10 step up Standing Exercise Name 6 in w/o rail Side left Reps/Minutes 6 Comments w/alt march step down Standing Exercise Name w/o rail Side left Equipment Used 4 in step Reps/Minutes 10 Comments cues for slow and controlled w /heel landing Manual Therapy Treatment Joint Mobilizations cuneiforms Joint L gapping FM cuboid Joint L PA and gappign FM tibfib Joint PA fib grade II FM talus Joint PA FM talus & med glide FM Neuro Re-Education Treatment Balance Activities SLS Comments 1. SLS trials L 2. mod SLS w/R on dyandisc and tilt fwd/back 3. mod SLS w/R on bosu 4. wt shift side to side bosu foam Comments marching on blue foam x12 B PT-OP-R Modalities Start: 11/24/22 17:53 Freq: Status: Active Protocol: Document 01/05/23 11:21 [facility] (Rec: 01/05/23 12:14 [facility] [id number]) Hot Pack/Cold Pack Treatment Cold Pack Location L ankle Patient Position Hooklying Treatment Duration (minutes) 10 PT-OP-T Assessment and Plan Start: 11/24/22 17:53 Freq: Status: Active Protocol: Document 02/02/23 10:03 [facility] (Rec: 02/02/23 10:48 [facility] [id number]) Physical Therapy Assessment Goals strength Short Term Goal (STG) Pt will be indep w/HEP STG Duration achieved advancing as able [employer] Goal (LTG) Pt will score at least 4+/5 on all MMT in order to improve stability of LE to improve ability to particpate in typical activities 01/12-improving LTG Duration 03/21 ROM Short Term Goal (STG) Pt will have DF of L anlke ot at least 0 to show improved motion. STG Duration achieved [employer] Goal (LTG) Pt will have full ROM of L ankle without inc pain in oreder to be able to inclines/ declines and stairs w/o pain 01/12-up has been ok. slow on down; ROM still limited LTG Duration 03/23 activity Short Term Goal (STG) Pt will be able to resume 1 mile walks w/1 pole without inc pain greater than 2/10 STG Duration achieved [employer] Goal (LTG) Pt will be able to return to gardening, hiking without issues w/balance and without inc pain >1/10 01/12-1 mile walks and pt doing gardening w/soreness LTG Duration 03/21 balance [facility] Home Goal (LTG) Pt will be able to do SLS B 10 sec to show good stability 01/12-L 1 sec; R 6 sec LTG Duration 03/23 Assessment Summary Assessment Pt idd well with exercises today but was challenged by them. She palns to workon steps at home and cont to work on SL balance. Physical Therapy Plan Frequency and Duration Frequency of Treatment 1x/Week Duration of treatment (weeks) 10 Plan of Care Start Date 01/12/23 Plan of Care End Date 03/23/23 Next Visit Focus/Plan Next Note Type Treatment Note Next Visit Plan Review hip exercises prn, manual to calf and peroneals and plantar fascia
--- NOTE | 2023-02-09 13:16 | PT.OTN ---
Current Diagnoses Difficulty in walking, not elsewhere classified (02/09/23) Abnormal posture (02/09/23) Weakness (02/09/23) Other fracture of left lower leg, initial encounter for closed fracture (02/09/23) Physical Therapy Treatment Note PT-OP-A Visit Information Start: 11/24/22 17:53 Freq: Status: Active Protocol: Document 02/09/23 10:50 [facility] (Rec: 02/09/23 13:16 [facility] [id number]) Out-Patient Physical Therapy Visit Information Visit Information Visit Type Treatment Note Visit Note 01/28 Visit Start Time 10:49 Visit Stop Time 11:32 Total Visit Minutes 43 Visit Number 14 Number of POWERHOUSE MECHANIC APPRENTICE Visits 0 PT-OP-B Current Condition Start: 11/24/22 17:53 Freq: Status: Active Protocol: Document 11/25/22 07:26 [facility] (Rec: 11/25/22 08:23 [facility] [id number]) Current Condition History of Current Condition Onset Date Sep 29 Current Complaints MIldly displaced lat malleolus fx History of Current Condition Pt broke her ankle when she was at her cabin in [place] and went for a walk after their long drive. The road was plowed and when she truned, she slipped and she thinks she went into signfiicant inversion. She couldn't get up so had to crawl .1 mile. She had on a trail boot which she thinks may habe made her break better. She has been frustrated because her recovery has been delayed.She had the boot on for 4 weeks. and now has a lace up and wrap ankle brace. She still has a lot of swelling. She has noticed that her L leg does not seem to function as she feels like it should. Her ankle has limited mobility and knee doesn't want to bend. She has been doing acupuncture for the past 4 weeks and that really helped. She saw another PT but decided to come here. She saw her for 3 weeks in Oct until the . Xrays 3 weeks ago and pt reports the MD was happy. Next Xray is next Thu. Pt is to wear the brace when on her feet. Last PT has her walking 15 min a day and she uses poles during the walk. Inside not using poles. Pt reports since wearing the boot her R hip has been givng her more trouble. Pt reports she does okay on stairs. She has been walkin gin her neighborhood and she has to go down a slope and that is tough to do. Treatment Goals Patient/Caregiver Goals Get back to hiking, walking, biking PT-OP-C Subjective Start: 11/24/22 17:53 Freq: Status: Active Protocol: Document 02/09/23 10:50 [facility] (Rec: 02/09/23 13:16 [facility] [id number]) OP-PT Subjective Patient Comments Patient Comments Pt reports she had a really good walk yesterday. She keeps inc walk distance. She has noticed it is hard to get L knee bend on stairs. L ankle still feels stiff. SHe hasn't tried the band ROM exercise d/ t concern for veins PT-OP-F Manual Assessment Start: 11/24/22 17:53 Freq: Status: Active Protocol: Document 11/25/22 07:26 [facility] (Rec: 11/25/22 08:23 [facility] [id number]) Manual Assessments Other Manual Assessments Other Manual Assessments significant swelling in L ankle and calf PT-OP-G Mobility & Gait Start: 11/24/22 17:53 Freq: Status: Active Protocol: Document 11/25/22 07:26 [facility] (Rec: 11/25/22 08:23 [facility] [id number]) OP Gait Assessment Comments Gait Comments Dec stance time on LLE and dec push off and some lat lean onto L w/ WB PT-OP-K Range of Motion Start: 11/24/22 17:53 Freq: Status: Active Protocol: Document 01/12/23 11:24 [facility] (Rec: 01/12/23 12:24 [facility] [id number]) Ankle and Foot Goniometric Range of Motion Ankle and Foot Left Active Dorsiflexion with Knee Flexed 5 Dorsiflexion with Knee Extended 3 Plantarflexion 49 Inversion 15 Eversion 12 PT-OP-M Strength Start: 11/24/22 17:53 Freq: Status: Active Protocol: Document 01/12/23 11:24 [facility] (Rec: 01/12/23 12:24 [facility] [id number]) Hip Strength Hip Manual Muscle Testing Right Flexion (L2) 4 Good Extension (S1) 3+ Fair+ Abduction 3+ Fair+ Adduction 5 Normal External Rotation 4 Good Internal Rotation 4+ Good+ Left Flexion (L2) 4 Good Extension (S1) 3+ Fair+ Abduction 4- Good- Adduction 5 Normal External Rotation 4 Good Internal Rotation 4+ Good+ Knee Strength Knee Manual Muscle Testing Right Flexion (S2) 4+ Good+ Extension (L3) 4+ Good+ Left Flexion (S2) 4+ Good+ Extension (L3) 4+ Good+ Ankle/Foot Strength Ankle and Foot Manual Muscle Testing Right Dorsiflexion (L4) 5 Normal Plantarflexion (S1) 5 Normal Inversion 5 Normal Eversion (S1) 5 Normal Comments 20 heel raises Left Dorsiflexion (L4) 4+ Good+ Plantarflexion (S1) 3- Fair- Inversion 3+ Fair+ Eversion (S1) 4 Good Comments PF tested seated L as unable to do heel raise now PT-OP-Q Treatments Start: 11/24/22 17:53 Freq: Status: Active Protocol: Document 02/09/23 10:50 [facility] (Rec: 02/09/23 13:16 [facility] [id number]) Therapeutic Exercises Standing Exercises gait at wall Standing Exercise Name L hip ext, knee ext & R flex add ER pattern w/DF Reps/Minutes 10s ec x2 Comments PT facilitated initially step down Standing Exercise Name w/hand at counter bending L knee w/RLE ext to tap it down Side left Reps/Minutes 15 Comments cues for slow and controlled Heel raises Standing Exercise Name DL on ground and on step Side bilateral Reps/Minutes 8 ea Gait Training Gait Activity wt shifts Comments fwd in mirror into LLE w/1 hand hold and fwd knee towards chest then stepx8 min walking Comments in mirror w/focus on dec limp x3 min Neuro Re-Education Treatment Other Activities PNF Details L pelvis post dep Reps/Duration 14 min Comments 1. rhythmic initiation 2. pelvic pattern only sustained holds progressed to COI 3. pelvic pattern and LE pattern sustained holds progressed to COI w/hip flex, ER PT-OP-R Modalities Start: 11/24/22 17:53 Freq: Status: Active Protocol: Document 01/05/23 11:21 [facility] (Rec: 01/05/23 12:14 [facility] [id number]) Hot Pack/Cold Pack Treatment Cold Pack Location L ankle Patient Position Hooklying Treatment Duration (minutes) 10 PT-OP-T Assessment and Plan Start: 11/24/22 17:53 Freq: Status: Active Protocol: Document 02/09/23 10:50 [facility] (Rec: 02/09/23 13:16 [facility] [id number]) Physical Therapy Assessment Goals strength Short Term Goal (STG) Pt will be indep w/HEP STG Duration achieved advancing as able [facility] Goal (LTG) Pt will score at least 4+/5 on all MMT in order to improve stability of LE to improve ability to particpate in typical activities 01/12-improving LTG Duration 03/21 ROM Short Term Goal (STG) Pt will have DF of L anlke ot at least 0 to show improved motion. STG Duration achieved Press Reader Goal (LTG) Pt will have full ROM of L ankle without inc pain in oreder to be able to inclines/ declines and stairs w/o pain 01/12-up has been ok. slow on down; ROM still limited LTG Duration 03/23 activity Short Term Goal (STG) Pt will be able to resume 1 mile walks w/1 pole without inc pain greater than 2/10 STG Duration achieved Press Reader Goal (LTG) Pt will be able to return to gardening, hiking without issues w/balance and without inc pain >1/10 01/12-1 mile walks and pt doing gardening w/soreness LTG Duration 03/21 balance [facility] Goal (LTG) Pt will be able to do SLS B 10 sec to show good stability 01/12-L 1 sec; R 6 sec LTG Duration 03/23 Assessment Summary Assessment Pt did well with gait training today and after PNF, pt felt stronger w/hip and was able to amb better w/improved LLE stance time. Physical Therapy Plan Frequency and Duration Frequency of Treatment 1x/Week Duration of treatment (weeks) 10 Plan of Care Start Date 01/12/23 Plan of Care End Date 03/23/23 Next Visit Focus/Plan Next Note Type Treatment Note Next Visit Plan cont to work on improved gait mechanics and SLS ; manual to improve foot mobility
--- NOTE | 2023-02-23 11:37 | PT.OTN ---
Current Diagnoses Difficulty in walking, not elsewhere classified (02/23/23) Abnormal posture (02/23/23) Weakness (02/23/23) Other fracture of left lower leg, initial encounter for closed fracture (02/23/23) Physical Therapy Treatment Note PT-OP-A Visit Information Start: 11/24/22 17:53 Freq: Status: Active Protocol: Document 02/23/23 10:46 [facility] (Rec: 02/23/23 11:37 [facility] [id number]) Out-Patient Physical Therapy Visit Information Visit Information Visit Type Treatment Note Visit Note 02/28 Visit Start Time 10:47 Visit Stop Time 11:30 Total Visit Minutes 43 Visit Number 15 Number of FARMWORKER VEGETABLE Visits 0 PT-OP-B Current Condition Start: 11/24/22 17:53 Freq: Status: Active Protocol: Document 11/25/22 07:26 [facility] (Rec: 11/25/22 08:23 [facility] [id number]) Current Condition History of Current Condition Onset Date Sep 29 Current Complaints MIldly displaced lat malleolus fx History of Current Condition Pt broke her ankle when she was at her cabin in [place] and went for a walk after their long drive. The road was plowed and when she truned, she slipped and she thinks she went into signfiicant inversion. She couldn't get up so had to crawl .1 mile. She had on a trail boot which she thinks may habe made her break better. She has been frustrated because her recovery has been delayed.She had the boot on for 4 weeks. and now has a lace up and wrap ankle brace. She still has a lot of swelling. She has noticed that her L leg does not seem to function as she feels like it should. Her ankle has limited mobility and knee doesn't want to bend. She has been doing acupuncture for the past 4 weeks and that really helped. She saw another PT but decided to come here. She saw her for 3 weeks in Oct until the . Xrays 3 weeks ago and pt reports the MD was happy. Next Xray is next Thu. Pt is to wear the brace when on her feet. Last PT has her walking 15 min a day and she uses poles during the walk. Inside not using poles. Pt reports since wearing the boot her R hip has been givng her more trouble. Pt reports she does okay on stairs. She has been walkin gin her neighborhood and she has to go down a slope and that is tough to do. Treatment Goals Patient/Caregiver Goals Get back to hiking, walking, biking PT-OP-C Subjective Start: 11/24/22 17:53 Freq: Status: Active Protocol: Document 02/23/23 10:46 [facility] (Rec: 02/23/23 11:37 [facility] [id number]) OP-PT Subjective Patient Comments Patient Comments Pt reports she feels like the exercises she was doing helped . She disliked the heel lifts on the stairs the most. PT-OP-F Manual Assessment Start: 11/24/22 17:53 Freq: Status: Active Protocol: Document 11/25/22 07:26 [facility] (Rec: 11/25/22 08:23 [facility] [id number]) Manual Assessments Other Manual Assessments Other Manual Assessments significant swelling in L ankle and calf PT-OP-G Mobility & Gait Start: 11/24/22 17:53 Freq: Status: Active Protocol: Document 11/25/22 07:26 [facility] (Rec: 11/25/22 08:23 [facility] [id number]) OP Gait Assessment Comments Gait Comments Dec stance time on LLE and dec push off and some lat lean onto L w/ WB PT-OP-K Range of Motion Start: 11/24/22 17:53 Freq: Status: Active Protocol: Document 01/12/23 11:24 [facility] (Rec: 01/12/23 12:24 [facility] [id number]) Ankle and Foot Goniometric Range of Motion Ankle and Foot Left Active Dorsiflexion with Knee Flexed 5 Dorsiflexion with Knee Extended 3 Plantarflexion 49 Inversion 15 Eversion 12 PT-OP-M Strength Start: 11/24/22 17:53 Freq: Status: Active Protocol: Document 01/12/23 11:24 [facility] (Rec: 01/12/23 12:24 [facility] [id number]) Hip Strength Hip Manual Muscle Testing Right Flexion (L2) 4 Good Extension (S1) 3+ Fair+ Abduction 3+ Fair+ Adduction 5 Normal External Rotation 4 Good Internal Rotation 4+ Good+ Left Flexion (L2) 4 Good Extension (S1) 3+ Fair+ Abduction 4- Good- Adduction 5 Normal External Rotation 4 Good Internal Rotation 4+ Good+ Knee Strength Knee Manual Muscle Testing Right Flexion (S2) 4+ Good+ Extension (L3) 4+ Good+ Left Flexion (S2) 4+ Good+ Extension (L3) 4+ Good+ Ankle/Foot Strength Ankle and Foot Manual Muscle Testing Right Dorsiflexion (L4) 5 Normal Plantarflexion (S1) 5 Normal Inversion 5 Normal Eversion (S1) 5 Normal Comments 20 heel raises Left Dorsiflexion (L4) 4+ Good+ Plantarflexion (S1) 3- Fair- Inversion 3+ Fair+ Eversion (S1) 4 Good Comments PF tested seated L as unable to do heel raise now PT-OP-Q Treatments Start: 11/24/22 17:53 Freq: Status: Active Protocol: Document 02/23/23 10:46 [facility] (Rec: 02/23/23 11:37 [facility] [id number]) Therapeutic Exercises Standing Exercises gait at wall Standing Exercise Name L hip ext, knee ext & R flex add ER pattern w/DF Reps/Minutes 5 sec x3 Comments working on PF step down Standing Exercise Name step down w/backwards step up Side left Equipment Used 1 rail Reps/Minutes 8 Comments cues for slow and controlled Heel raises Standing Exercise Name DL on ground and on step Side bilateral Reps/Minutes 8 ea Comments working on DF range wt shifts Standing Exercise Name wt shit walking then wt shift to SLS Reps/Minutes 5 imn Manual Therapy Treatment Soft Tissue Mobilization fascial release Body Location ant ankle Mobilization Type Myofascial Release Intensity/Depth Superficial Comments w/PF Joint Mobilizations tibfib Joint PA fib and tib FM Neuro Re-Education Treatment Balance Activities SLS Comments 1. SLS trials L 2. mod SLS w/R on dyandisc and tilt fwd/back 3.SLs W/r ON ball w/fwd back rolls 4. marches on bosu (wt shift) Other Activities facilitation Comments seatd w/PT traciton at LLE for wt acceptance x 2min PNF Details L pelvis post dep Reps/Duration 4 min Comments 1. rhythmic initiation 2. pelvic pattern only sustained holds progressed to COI 3. pelvic pattern and LE PT-OP-R Modalities Start: 11/24/22 17:53 Freq: Status: Active Protocol: Document 01/05/23 11:21 [facility] (Rec: 01/05/23 12:14 [facility] [id number]) Hot Pack/Cold Pack Treatment Cold Pack Location L ankle Patient Position Hooklying Treatment Duration (minutes) 10 PT-OP-T Assessment and Plan Start: 11/24/22 17:53 Freq: Status: Active Protocol: Document 02/23/23 10:46 [facility] (Rec: 02/23/23 11:37 [facility] [id number]) Physical Therapy Assessment Goals strength Short Term Goal (STG) Pt will be indep w/HEP STG Duration achieved advancing as able District Commercial Superintendent Goal (LTG) Pt will score at least 4+/5 on all MMT in order to improve stability of LE to improve ability to particpate in typical activities 01/12-improving LTG Duration 03/21 ROM Short Term Goal (STG) Pt will have DF of L anlke ot at least 0 to show improved motion. STG Duration achieved Care Home Goal (LTG) Pt will have full ROM of L ankle without inc pain in oreder to be able to inclines/ declines and stairs w/o pain 01/12-up has been ok. slow on down; ROM still limited LTG Duration 03/23 activity Short Term Goal (STG) Pt will be able to resume 1 mile walks w/1 pole without inc pain greater than 2/10 STG Duration achieved Care Home Goal (LTG) Pt will be able to return to gardening, hiking without issues w/balance and without inc pain >1/10 01/12-1 mile walks and pt doing gardening w/soreness LTG Duration 03/21 balance Care Home Goal (LTG) Pt will be able to do SLS B 10 sec to show good stability 01/12-L 1 sec; R 6 sec LTG Duration 03/23 Assessment Summary Assessment Pt did well with exercises and was able to improve w/ performance and advance exercies. Physical Therapy Plan Frequency and Duration Frequency of Treatment 1x/Week Duration of treatment (weeks) 10 Plan of Care Start Date 01/12/23 Plan of Care End Date 03/23/23 Next Visit Focus/Plan Next Note Type Treatment Note Next Visit Plan cont to work on improved gait mechanics and SLS ; manual to improve foot mobility
--- NOTE | 2023-03-09 18:23 | PT.OTN ---
Current Diagnoses Difficulty in walking, not elsewhere classified (03/09/23) Abnormal posture (03/09/23) Weakness (03/09/23) Other fracture of left lower leg, initial encounter for closed fracture (03/09/23) Physical Therapy Treatment Note PT-OP-A Visit Information Start: 11/24/22 17:53 Freq: Status: Active Protocol: Document 03/09/23 10:49 [facility] (Rec: 03/09/23 18:23 [facility] [id number]) Out-Patient Physical Therapy Visit Information Visit Information Visit Type Progress Note Visit Note 09/30 Visit Start Time 10:50 Visit Stop Time 11:30 Total Visit Minutes 40 Visit Number 16 Number of SPORTS MANAGEMENT PROFESSOR Visits 0 PT-OP-B Current Condition Start: 11/24/22 17:53 Freq: Status: Active Protocol: Document 11/25/22 07:26 [facility] (Rec: 11/25/22 08:23 [facility] [id number]) Current Condition History of Current Condition Onset Date Sep 29 Current Complaints MIldly displaced lat malleolus fx History of Current Condition Pt broke her ankle when she was [place] and went for a walk after their long drive. The road was plowed and when she truned, she slipped and she thinks she went into signfiicant inversion. She couldn't get up so had to crawl .1 mile. She had on a trail boot which she thinks may habe made her break better. She has been frustrated because her recovery has been delayed.She had the boot on for 4 weeks. and now has a lace up and wrap ankle brace. She still has a lot of swelling. She has noticed that her L leg does not seem to function as she feels like it should. Her ankle has limited mobility and knee doesn't want to bend. She has been doing acupuncture for the past 4 weeks and that really helped. She saw another PT but decided to come here. She saw her for 3 weeks in Oct until the . Xrays 3 weeks ago and pt reports the MD was happy. Next Xray is next Thu. Pt is to wear the brace when on her feet. Last PT has her walking 15 min a day and she uses poles during the walk. Inside not using poles. Pt reports since wearing the boot her R hip has been givng her more trouble. Pt reports she does okay on stairs. She has been walkin gin her neighborhood and she has to go down a slope and that is tough to do. Treatment Goals Patient/Caregiver Goals Get back to hiking, walking, biking PT-OP-C Subjective Start: 11/24/22 17:53 Freq: Status: Active Protocol: Document 03/09/23 10:49 [facility] (Rec: 03/09/23 18:23 [facility] [id number]) OP-PT Subjective Patient Comments Patient Comments Occ discomot in med ankle when having been moving a while or when doing ankle rotations. PT-OP-F Manual Assessment Start: 11/24/22 17:53 Freq: Status: Active Protocol: Document 11/25/22 07:26 [facility] (Rec: 11/25/22 08:23 [facility] [id number]) Manual Assessments Other Manual Assessments Other Manual Assessments significant swelling in L ankle and calf PT-OP-G Mobility & Gait Start: 11/24/22 17:53 Freq: Status: Active Protocol: Document 11/25/22 07:26 [facility] (Rec: 11/25/22 08:23 [facility] [id number]) OP Gait Assessment Comments Gait Comments Dec stance time on LLE and dec push off and some lat lean onto L w/ WB PT-OP-K Range of Motion Start: 11/24/22 17:53 Freq: Status: Active Protocol: Document 03/09/23 10:49 [facility] (Rec: 03/09/23 18:23 [facility] [id number]) Ankle and Foot Goniometric Range of Motion Ankle and Foot Right Active Dorsiflexion with Knee Flexed 9 Dorsiflexion with Knee Extended 3 Plantarflexion 50 Inversion 31 Eversion 11 Left Active Dorsiflexion with Knee Flexed 7 Dorsiflexion with Knee Extended 4 Plantarflexion 50 Inversion 21 Eversion 18 PT-OP-M Strength Start: 11/24/22 17:53 Freq: Status: Active Protocol: Document 03/09/23 10:49 [facility] (Rec: 03/09/23 18:23 [facility] [id number]) Hip Strength Hip Manual Muscle Testing Right Flexion (L2) 4+ Good+ Extension (S1) 4- Good- Abduction 4 Good Adduction 5 Normal External Rotation 4 Good Internal Rotation 5 Normal Left Flexion (L2) 4+ Good+ Extension (S1) 4- Good- Abduction 4 Good Adduction 5 Normal External Rotation 4 Good Internal Rotation 5 Normal Knee Strength Knee Manual Muscle Testing Right Flexion (S2) 5 Normal Extension (L3) 5 Normal Left Flexion (S2) 5 Normal Extension (L3) 5 Normal Ankle/Foot Strength Ankle and Foot Manual Muscle Testing Right Dorsiflexion (L4) 5 Normal Plantarflexion (S1) 5 Normal Inversion 5 Normal Eversion (S1) 5 Normal Comments 20 heel raises Left Dorsiflexion (L4) 4+ Good+ Plantarflexion (S1) 3- Fair- Inversion 3+ Fair+ Eversion (S1) 5 Normal Comments PF tested seated L as unable to do heel raise now PT-OP-Q Treatments Start: 11/24/22 17:53 Freq: Status: Active Protocol: Document 03/09/23 10:49 [facility] (Rec: 03/09/23 18:23 [facility] [id number]) Therapeutic Exercises Sitting Exercises ankle tband Sitting Exercise Name inversion Side left Equipment Used orange band Reps/Minutes 15 Comments max cues for knee Standing Exercises SL Standing Exercise Name stances trials B Heel raises Standing Exercise Name DL on ground w/progress towrads wt shift 75% to L eccentric Reps/Minutes 10 sidestep Standing Exercise Name verbal review w/squat w/demo Manual Therapy Treatment Joint Mobilizations cuboid Comments lat gapping FM Self-Care/Home Management Treatment Education Other Education 23 min:Discussing progress and edu to pt to slowly progress to easy trails w/walking stick . start no more than a mile and build up. Discussed builidng up on flat terrain for longer dstances also. Verbal review of exercsies and what is still important to work on and why. Edu that ROM is looking good but inversion still limited ROM zaidi and strength zadii. Pt asked about soft tissue injury but notes no MRI done so educated pt xray would not show taht and it is possible that there was some soft tissue damage at the time but the fracture was the main issues. PT-OP-R Modalities Start: 11/24/22 17:53 Freq: Status: Active Protocol: Document 01/05/23 11:21 [facility] (Rec: 01/05/23 12:14 [facility] [id number]) Hot Pack/Cold Pack Treatment Cold Pack Location L ankle Patient Position Hooklying Treatment Duration (minutes) 10 PT-OP-T Assessment and Plan Start: 11/24/22 17:53 Freq: Status: Active Protocol: Document 03/09/23 10:49 [facility] (Rec: 03/09/23 18:23 [facility] [id number]) Physical Therapy Assessment Goals strength Short Term Goal (STG) Pt will be indep w/HEP STG Duration achieved advancing as able Building Cleaner Goal (LTG) Pt will score at least 4+/5 on all MMT in order to improve stability of LE to improve ability to particpate in typical activities 01/12-improving 03/09-improved LTG Duration 04/20 ROM Short Term Goal (STG) Pt will have DF of L anlke ot at least 0 to show improved motion. STG Duration achieved Fdc Goal (LTG) Pt will have full ROM of L ankle without inc pain in oreder to be able to inclines/ declines and stairs w/o pain 01/12-up has been ok. slow on down; ROM still limited 03/09-eversion limit only LTG Duration 04/20 activity Short Term Goal (STG) Pt will be able to resume 1 mile walks w/1 pole without inc pain greater than 2/10 STG Duration achieved Building Cleaner Goal (LTG) Pt will be able to return to gardening, hiking without issues w/balance and without inc pain >1/10 01/12-1 mile walks and pt doing gardening w/soreness 03/09-1.5 mile walks, has done gardening, limited uneven terrain LTG Duration 04/20 balance Building Cleaner Goal (LTG) Pt will be able to do SLS B 10 sec to show good stability 01/12-L 1 sec; R 6 sec 03/09-2 sec L : R 7 sec LTG Duration 04/20 Assessment Summary Assessment Pt understanding about HEP and is progressing w/balance and strength and overall fucntional ability. She is less limited by activity now and is doing most of her typical activities but does still have some pain and nnotes some dec balance. Physical Therapy Plan Frequency and Duration Frequency of Treatment 1x/Week Duration of treatment (weeks) 6 Plan of Care Start Date 03/09/23 Plan of Care End Date 04/20/23 Therapeutic Interventions Therapeutic Interventions Aquatic Therapy,Balance Training,Gait Training,Home Exercise Program,Joint Mobilizations,Manual Therapy, Neuromuscular Re-education, Orthotic/Prosthetic Management ,Patient/Caregiver Education, Self-Care/Home Management,Soft Tissue Mobilization,Taping, Therapeutic Activities, Therapeutic Exercises Modalities Cold Pack/Ice Massage,Electric Stimulation,Hot Packs, Infrared Therapy,Iontophoresis ,Traction- Mechanical, Ultrasound Next Visit Focus/Plan Next Note Type Treatment Note Next Visit Plan cont to work on improved gait mechanics and SLS ; manual to improve foot mobility
--- NOTE | 2023-03-09 18:24 | PT.OPPOC ---
Physical, Occupational & Speech Therapy At [facility] Current Diagnoses Difficulty in walking, not elsewhere classified (03/09/23) Abnormal posture (03/09/23) Weakness (03/09/23) Other fracture of left lower leg, initial encounter for closed fracture (03/09/23) Visit Care Team Role Provider Type Ady Dow, Family Provider Non-Staff Primary Care Provider Specialty: Medical Address: [address] [place] [address] [address], [place], [address] Email: Yudelka Charlton MD Attending Provider Physician Referring Provider Specialty: Orthopedics Orthopedic Surgery Address: [address] [place] [address], [id number] Email: [email or web address] Plan Of Care PT-OP-T Assessment and Plan Start: 11/24/22 17:53 Freq: Status: Active Protocol: Document 03/09/23 10:49 [facility] (Rec: 03/09/23 18:23 [facility] [id number]) Physical Therapy Assessment Goals strength Short Term Goal (STG) Pt will be indep w/HEP STG Duration achieved advancing as able Coverstitch Binder Goal (LTG) Pt will score at least 4+/5 on all MMT in order to improve stability of LE to improve ability to particpate in typical activities 01/12-improving 03/09-improved LTG Duration 04/20 ROM Short Term Goal (STG) Pt will have DF of L anlke ot at least 0 to show improved motion. STG Duration achieved Retirement Goal (LTG) Pt will have full ROM of L ankle without inc pain in oreder to be able to inclines/ declines and stairs w/o pain 01/12-up has been ok. slow on down; ROM still limited 03/09-eversion limit only LTG Duration 04/20 activity Short Term Goal (STG) Pt will be able to resume 1 mile walks w/1 pole without inc pain greater than 2/10 STG Duration achieved Retirement Goal (LTG) Pt will be able to return to gardening, hiking without issues w/balance and without inc pain >1/10 01/12-1 mile walks and pt doing gardening w/soreness 03/09-1.5 mile walks, has done gardening, limited uneven terrain LTG Duration 04/20 balance Retirement Goal (LTG) Pt will be able to do SLS B 10 sec to show good stability 01/12-L 1 sec; R 6 sec 03/09-2 sec L : R 7 sec LTG Duration 04/20 Assessment Summary Assessment Pt understanding about HEP and is progressing w/balance and strength and overall fucntional ability. She is less limited by activity now and is doing most of her typical activities but does still have some pain and nnotes some dec balance. Physical Therapy Plan Frequency and Duration Frequency of Treatment 1x/Week Duration of treatment (weeks) 6 Plan of Care Start Date 03/09/23 Plan of Care End Date 04/20/23 Therapeutic Interventions Therapeutic Interventions Aquatic Therapy,Balance Training,Gait Training,Home Exercise Program,Joint Mobilizations,Manual Therapy, Neuromuscular Re-education, Orthotic/Prosthetic Management ,Patient/Caregiver Education, Self-Care/Home Management,Soft Tissue Mobilization,Taping, Therapeutic Activities, Therapeutic Exercises Modalities Cold Pack/Ice Massage,Electric Stimulation,Hot Packs, Infrared Therapy,Iontophoresis ,Traction- Mechanical, Ultrasound Next Visit Focus/Plan Next Note Type Treatment Note Next Visit Plan cont to work on improved gait mechanics and SLS ; manual to improve foot mobility Plan of Care Dates Plan of Care Start Date 03/09/23 Plan of Care End Date 04/20/23 Electronically Signed by: Nani Sesay, PT 03/09/23 3065 If you are in agreement with this Plan of Care, please return a signed and dated copy. I have reviewed this Plan of Care and certify that the skilled therapy services above are required to meet the patient?s needs. Physician Signature Date Printed Name and Credentials Clinical Instructor Signature Printed Name and Credentials
--- NOTE | 2023-03-23 11:35 | PT.OTN ---
Current Diagnoses Difficulty in walking, not elsewhere classified (03/23/23) Abnormal posture (03/23/23) Weakness (03/23/23) Other fracture of left lower leg, initial encounter for closed fracture (03/23/23) Physical Therapy Treatment Note PT-OP-A Visit Information Start: 11/24/22 17:53 Freq: Status: Active Protocol: Document 03/23/23 10:48 [facility] (Rec: 03/23/23 11:35 [facility] [id number]) Out-Patient Physical Therapy Visit Information Visit Information Visit Type Treatment Note Visit Note 10/31 Visit Start Time 10:49 Visit Stop Time 11:30 Total Visit Minutes 41 Visit Number 17 Number of ARCHIVAL STUDIES PROFESSOR Visits 0 PT-OP-B Current Condition Start: 11/24/22 17:53 Freq: Status: Active Protocol: Document 11/25/22 07:26 [facility] (Rec: 11/25/22 08:23 [facility] [id number]) Current Condition History of Current Condition Onset Date Sep 29 Current Complaints MIldly displaced lat malleolus fx History of Current Condition Pt broke her ankle when she was at her cabin in [place] and went for a walk after their long drive. The road was plowed and when she truned, she slipped and she thinks she went into signfiicant inversion. She couldn't get up so had to crawl .1 mile. She had on a trail boot which she thinks may habe made her break better. She has been frustrated because her recovery has been delayed.She had the boot on for 4 weeks. and now has a lace up and wrap ankle brace. She still has a lot of swelling. She has noticed that her L leg does not seem to function as she feels like it should. Her ankle has limited mobility and knee doesn't want to bend. She has been doing acupuncture for the past 4 weeks and that really helped. She saw another PT but decided to come here. She saw her for 3 weeks in Oct until the . Xrays 3 weeks ago and pt reports the MD was happy. Next Xray is next Thu. Pt is to wear the brace when on her feet. Last PT has her walking 15 min a day and she uses poles during the walk. Inside not using poles. Pt reports since wearing the boot her R hip has been givng her more trouble. Pt reports she does okay on stairs. She has been walkin gin her neighborhood and she has to go down a slope and that is tough to do. Treatment Goals Patient/Caregiver Goals Get back to hiking, walking, biking PT-OP-C Subjective Start: 11/24/22 17:53 Freq: Status: Active Protocol: Document 03/23/23 10:48 [facility] (Rec: 03/23/23 11:35 [facility] [id number]) OP-PT Subjective Patient Comments Patient Comments Pt reports she was really sore in her foot for a while in foot. She tried the exercises but was still painful. She did walk on hill by house which really worked her legs. She walked on gravel at her cabin and did some woodsy walks on the way and that goes okay. She has still been doing foot exercises from her book. She has also done some exercsies that she found to work her fascia gently. She has been having pain in L buttocks and that goes down the leg and radiates down lat leg. It seens to get worse when she sits in the wrong place. This is what was flared up from last time. PT-OP-F Manual Assessment Start: 11/24/22 17:53 Freq: Status: Active Protocol: Document 11/25/22 07:26 [facility] (Rec: 11/25/22 08:23 [facility] [id number]) Manual Assessments Other Manual Assessments Other Manual Assessments significant swelling in L ankle and calf PT-OP-G Mobility & Gait Start: 11/24/22 17:53 Freq: Status: Active Protocol: Document 11/25/22 07:26 [facility] (Rec: 11/25/22 08:23 [facility] [id number]) OP Gait Assessment Comments Gait Comments Dec stance time on LLE and dec push off and some lat lean onto L w/ WB PT-OP-K Range of Motion Start: 11/24/22 17:53 Freq: Status: Active Protocol: Document 03/09/23 10:49 [facility] (Rec: 03/09/23 18:23 [facility] [id number]) Ankle and Foot Goniometric Range of Motion Ankle and Foot Right Active Dorsiflexion with Knee Flexed 9 Dorsiflexion with Knee Extended 3 Plantarflexion 50 Inversion 31 Eversion 11 Left Active Dorsiflexion with Knee Flexed 7 Dorsiflexion with Knee Extended 4 Plantarflexion 50 Inversion 21 Eversion 18 PT-OP-M Strength Start: 11/24/22 17:53 Freq: Status: Active Protocol: Document 03/09/23 10:49 [facility] (Rec: 03/09/23 18:23 [facility] [id number]) Hip Strength Hip Manual Muscle Testing Right Flexion (L2) 4+ Good+ Extension (S1) 4- Good- Abduction 4 Good Adduction 5 Normal External Rotation 4 Good Internal Rotation 5 Normal Left Flexion (L2) 4+ Good+ Extension (S1) 4- Good- Abduction 4 Good Adduction 5 Normal External Rotation 4 Good Internal Rotation 5 Normal Knee Strength Knee Manual Muscle Testing Right Flexion (S2) 5 Normal Extension (L3) 5 Normal Left Flexion (S2) 5 Normal Extension (L3) 5 Normal Ankle/Foot Strength Ankle and Foot Manual Muscle Testing Right Dorsiflexion (L4) 5 Normal Plantarflexion (S1) 5 Normal Inversion 5 Normal Eversion (S1) 5 Normal Comments 20 heel raises Left Dorsiflexion (L4) 4+ Good+ Plantarflexion (S1) 3- Fair- Inversion 3+ Fair+ Eversion (S1) 5 Normal Comments PF tested seated L as unable to do heel raise now PT-OP-Q Treatments Start: 11/24/22 17:53 Freq: Status: Active Protocol: Document 03/23/23 10:48 [facility] (Rec: 03/23/23 11:35 [facility] [id number]) Manual Therapy Treatment Soft Tissue Mobilization fascial release Body Location circunfrential Mobilization Type Myofascial Release Intensity/Depth Superficial Comments w/PF calf Comments calf &ant tib circufrential and calf w/APs Self-Care/Home Management Treatment Education Other Education 17 min: review HEP and discussed change inversion to AROM, edu importanc eof cont heel raises and SLS, discussed execises pt doing PT-OP-R Modalities Start: 11/24/22 17:53 Freq: Status: Active Protocol: Document 01/05/23 11:21 [facility] (Rec: 01/05/23 12:14 [facility] [id number]) Hot Pack/Cold Pack Treatment Cold Pack Location L ankle Patient Position Hooklying Treatment Duration (minutes) 10 PT-OP-T Assessment and Plan Start: 11/24/22 17:53 Freq: Status: Active Protocol: Document 03/23/23 10:48 [facility] (Rec: 03/23/23 11:35 [facility] [id number]) Physical Therapy Assessment Goals strength Short Term Goal (STG) Pt will be indep w/HEP STG Duration achieved advancing as able Retirement Goal (LTG) Pt will score at least 4+/5 on all MMT in order to improve stability of LE to improve ability to particpate in typical activities 01/12-improving 03/09-improved LTG Duration 04/20 ROM Short Term Goal (STG) Pt will have DF of L anlke ot at least 0 to show improved motion. STG Duration achieved Retirement Goal (LTG) Pt will have full ROM of L ankle without inc pain in oreder to be able to inclines/ declines and stairs w/o pain 01/12-up has been ok. slow on down; ROM still limited 03/09-eversion limit only LTG Duration 04/20 activity Short Term Goal (STG) Pt will be able to resume 1 mile walks w/1 pole without inc pain greater than 2/10 STG Duration achieved Retirement Goal (LTG) Pt will be able to return to gardening, hiking without issues w/balance and without inc pain >1/10 01/12-1 mile walks and pt doing gardening w/soreness 03/09-1.5 mile walks, has done gardening, limited uneven terrain LTG Duration 04/20 balance Formula Bottler Goal (LTG) Pt will be able to do SLS B 10 sec to show good stability 01/12-L 1 sec; R 6 sec 03/09-2 sec L : R 7 sec LTG Duration 04/20 Assessment Summary Assessment Pt had dec pain after manual and improved ability to PF and invert. Pt understands plan to start to work on Inversion and as it becomes easier to add slght resistance Physical Therapy Plan Frequency and Duration Frequency of Treatment 1x/Week Duration of treatment (weeks) 6 Plan of Care Start Date 03/09/23 Plan of Care End Date 04/20/23 Next Visit Focus/Plan Next Note Type Progress Note Next Visit Plan cont to work on improved gait mechanics and SLS ; manual to improve foot mobility
--- NOTE | 2023-04-06 16:00 | PT.OTN ---
Current Diagnoses Difficulty in walking, not elsewhere classified (04/06/23) Abnormal posture (04/06/23) Weakness (04/06/23) Other fracture of left lower leg, initial encounter for closed fracture (04/06/23) Other fracture of left lower leg, subsequent encounter for closed fracture with routine healing (04/06/23) Physical Therapy Treatment Note PT-OP-A Visit Information Start: 11/24/22 17:53 Freq: Status: Active Protocol: Document 04/06/23 10:51 [facility] (Rec: 04/06/23 15:32 [facility] [id number]) Out-Patient Physical Therapy Visit Information Visit Information Visit Type Progress Note Visit Note 09/30 Visit Start Time 10:50 Visit Stop Time 11:30 Total Visit Minutes 40 Visit Number 18 Number of COUNTY PROGRAM TECHNICIAN Visits 0 PT-OP-B Current Condition Start: 11/24/22 17:53 Freq: Status: Active Protocol: Document 11/25/22 07:26 [facility] (Rec: 11/25/22 08:23 [facility] [id number]) Current Condition History of Current Condition Onset Date Sep 29 Current Complaints MIldly displaced lat malleolus fx History of Current Condition Pt broke her ankle when she was at her cabin in [place] and went for a walk after their long drive. The road was plowed and when she truned, she slipped and she thinks she went into signfiicant inversion. She couldn't get up so had to crawl .1 mile. She had on a trail boot which she thinks may habe made her break better. She has been frustrated because her recovery has been delayed.She had the boot on for 4 weeks. and now has a lace up and wrap ankle brace. She still has a lot of swelling. She has noticed that her L leg does not seem to function as she feels like it should. Her ankle has limited mobility and knee doesn't want to bend. She has been doing acupuncture for the past 4 weeks and that really helped. She saw another PT but decided to come here. She saw her for 3 weeks in Oct until the . Xrays 3 weeks ago and pt reports the MD was happy. Next Xray is next Thu. Pt is to wear the brace when on her feet. Last PT has her walking 15 min a day and she uses poles during the walk. Inside not using poles. Pt reports since wearing the boot her R hip has been givng her more trouble. Pt reports she does okay on stairs. She has been walkin gin her neighborhood and she has to go down a slope and that is tough to do. Treatment Goals Patient/Caregiver Goals Get back to hiking, walking, biking PT-OP-C Subjective Start: 11/24/22 17:53 Freq: Status: Active Protocol: Document 04/06/23 10:51 [facility] (Rec: 04/06/23 15:32 [facility] [id number]) OP-PT Subjective Patient Comments Patient Comments Pt went out to the [facility] this weekend. She had to have her carry the chairs. Walking on the dune areas were difficult. Pt reports she was doing some knee exercsise from her book and she sometimes gets pain in B knees and hips. PT-OP-F Manual Assessment Start: 11/24/22 17:53 Freq: Status: Active Protocol: Document 11/25/22 07:26 [facility] (Rec: 11/25/22 08:23 [facility] [id number]) Manual Assessments Other Manual Assessments Other Manual Assessments significant swelling in L ankle and calf PT-OP-G Mobility & Gait Start: 11/24/22 17:53 Freq: Status: Active Protocol: Document 11/25/22 07:26 [facility] (Rec: 11/25/22 08:23 [facility] [id number]) OP Gait Assessment Comments Gait Comments Dec stance time on LLE and dec push off and some lat lean onto L w/ WB PT-OP-K Range of Motion Start: 11/24/22 17:53 Freq: Status: Active Protocol: Document 04/06/23 10:51 [facility] (Rec: 04/06/23 15:32 [facility] [id number]) Ankle and Foot Goniometric Range of Motion Ankle and Foot Left Active Dorsiflexion with Knee Flexed 8 Dorsiflexion with Knee Extended 6 Plantarflexion 40 Inversion 19 Eversion 17 PT-OP-M Strength Start: 11/24/22 17:53 Freq: Status: Active Protocol: Document 04/06/23 10:51 [facility] (Rec: 04/06/23 15:32 [facility] [id number]) Hip Strength Hip Manual Muscle Testing Right Flexion (L2) 5 Normal Extension (S1) 4- Good- Abduction 4 Good Adduction 5 Normal External Rotation 4 Good Internal Rotation 5 Normal Left Flexion (L2) 5 Normal Extension (S1) 4- Good- Abduction 4 Good Adduction 5 Normal External Rotation 4 Good Internal Rotation 4 Good Knee Strength Knee Manual Muscle Testing Right Flexion (S2) 5 Normal Extension (L3) 5 Normal Left Flexion (S2) 4+ Good+ Extension (L3) 5 Normal Ankle/Foot Strength Ankle and Foot Manual Muscle Testing Right Dorsiflexion (L4) 5 Normal Plantarflexion (S1) 5 Normal Inversion 5 Normal Eversion (S1) 5 Normal Comments 20 heel raises Left Dorsiflexion (L4) 5 Normal Plantarflexion (S1) 3- Fair- Inversion 4 Good Eversion (S1) 5 Normal Comments PF tested seated L as unable to do heel raise now PT-OP-Q Treatments Start: 11/24/22 17:53 Freq: Status: Active Protocol: Document 04/06/23 10:51 [facility] (Rec: 04/06/23 15:32 [facility] [id number]) Gym Equipment Shuttle Recovery Unilateral Heel Raises Resistance 12# Shuttle Recovery Platform Stable Reps/Time 10 Bilateral Heel Raises Details 1. DL 2. eccentric Resistance 25# Shuttle Recovery Platform Stable Reps/Time 12 ea Therapeutic Exercises Standing Exercises SL Standing Exercise Name wokring on posture w/SL balance Side bilateral Heel raises Standing Exercise Name DL w/cues to put more wt into LLE Reps/Minutes 10 Self-Care/Home Management Treatment Education Other Education 10 min: Discussion re: progress and discussed gradually inc walking further and cont to try carefully inc more on trails to inc balance and stability. edu on importance of doing tougher exercises in order to adavnce her strength/balance vs choosing only easier exercises . PT-OP-R Modalities Start: 11/24/22 17:53 Freq: Status: Active Protocol: Document 01/05/23 11:21 [facility] (Rec: 01/05/23 12:14 [facility] [id number]) Hot Pack/Cold Pack Treatment Cold Pack Location L ankle Patient Position Hooklying Treatment Duration (minutes) 10 PT-OP-T Assessment and Plan Start: 11/24/22 17:53 Freq: Status: Active Protocol: Document 04/06/23 10:51 [facility] (Rec: 04/06/23 15:32 [facility] [id number]) Physical Therapy Assessment Goals strength Short Term Goal (STG) Pt will be indep w/HEP STG Duration achieved advancing as able Snf Goal (LTG) Pt will score at least 4+/5 on all MMT in order to improve stability of LE to improve ability to particpate in typical activities 01/12-improving 03/09-improved 7.18-some improvement LTG Duration 05/18 ROM Short Term Goal (STG) Pt will have DF of L anlke ot at least 0 to show improved motion. STG Duration achieved Snf Goal (LTG) Pt will have full ROM of L ankle without inc pain in oreder to be able to inclines/ declines and stairs w/o pain 01/12-up has been ok. slow on down; ROM still limited 03/09-eversion limit only 04/06-mild limits; no issues w/ stairs/hills LTG Duration 05/18 activity Short Term Goal (STG) Pt will be able to resume 1 mile walks w/1 pole without inc pain greater than 2/10 STG Duration achieved Snf Goal (LTG) Pt will be able to return to gardening, hiking without issues w/balance and without inc pain >1/10 01/12-1 mile walks and pt doing gardening w/soreness 03/09-1.5 mile walks, has done gardening, limited uneven terrain LTG Duration achieved 04/06 balance Housekeeper/Laundry Assistant Goal (LTG) Pt will be able to do SLS B 10 sec to show good stability 01/12-L 1 sec; R 6 sec 03/09-2 sec L : R 7 sec 04/06- L2 sec ;R 7 sec LTG Duration 05/18 Assessment Summary Assessment Pt has not made as much progress since last PN but has only been in 1 other time since then and was on vacation for some time which she did not do as much exercises during. She is makng excellent progress and imprvoing in functional ability at this time. She is now able to walk on trails and beaches and has inc her walking distance. She would benefit from cont PT to work on improving her balance and cont to fully restore her ROM and ankle strength. Focus was on exercises to progress this. Physical Therapy Plan Frequency and Duration Frequency of Treatment 1x/Week Duration of treatment (weeks) 6 Plan of Care Start Date 04/06/23 Plan of Care End Date 05/18/23 Therapeutic Interventions Therapeutic Interventions Aquatic Therapy,Balance Training,Gait Training,Home Exercise Program,Joint Mobilizations,Manual Therapy, Neuromuscular Re-education, Orthotic/Prosthetic Management ,Patient/Caregiver Education, Self-Care/Home Management,Soft Tissue Mobilization,Taping, Therapeutic Activities, Therapeutic Exercises Modalities Cold Pack/Ice Massage,Electric Stimulation,Hot Packs, Infrared Therapy,Iontophoresis ,Traction- Mechanical, Ultrasound Next Visit Focus/Plan Next Note Type Treatment Note Next Visit Plan cont to work on improved gait mechanics and SLS ; manual to improve foot mobility; work on heel raises
--- NOTE | 2023-04-06 16:01 | PT.OPPOC ---
Physical, Occupational & Speech Therapy At [facility] Current Diagnoses Difficulty in walking, not elsewhere classified (04/06/23) Abnormal posture (04/06/23) Weakness (04/06/23) Other fracture of left lower leg, initial encounter for closed fracture (04/06/23) Other fracture of left lower leg, subsequent encounter for closed fracture with routine healing (04/06/23) Visit Care Team Role Provider Type Ady Dow DO Family Provider Non-Staff Primary Care Provider Specialty: Medical Address: [address] [place] [address] [address], [place], [address] Email: Yudelka Charlton MD Attending Provider Physician Referring Provider Specialty: Orthopedics Orthopedic Surgery Address: [address] [place] [address], [id number] Email: [email or web address] Plan Of Care PT-OP-T Assessment and Plan Start: 11/24/22 17:53 Freq: Status: Active Protocol: Document 04/06/23 10:51 [facility] (Rec: 04/06/23 15:32 [facility] [id number]) Physical Therapy Assessment Goals strength Short Term Goal (STG) Pt will be indep w/HEP STG Duration achieved advancing as able [facility] Goal (LTG) Pt will score at least 4+/5 on all MMT in order to improve stability of LE to improve ability to particpate in typical activities 01/12-improving 03/09-improved .18-some improvement LTG Duration 05/18 ROM Short Term Goal (STG) Pt will have DF of L anlke ot at least 0 to show improved motion. STG Duration achieved Slicing Machine Operator/Tender Goal (LTG) Pt will have full ROM of L ankle without inc pain in oreder to be able to inclines/ declines and stairs w/o pain 01/12-up has been ok. slow on down; ROM still limited 03/09-eversion limit only 04/06-mild limits; no issues w/ stairs/hills LTG Duration 05/18 activity Short Term Goal (STG) Pt will be able to resume 1 mile walks w/1 pole without inc pain greater than 2/10 STG Duration achieved Slicing Machine Operator/Tender Goal (LTG) Pt will be able to return to gardening, hiking without issues w/balance and without inc pain >1/10 01/12-1 mile walks and pt doing gardening w/soreness 03/09-1.5 mile walks, has done gardening, limited uneven terrain LTG Duration achieved 04/06 balance [facility] Goal (LTG) Pt will be able to do SLS B 10 sec to show good stability 01/12-L 1 sec; R 6 sec 03/09-2 sec L : R 7 sec 04/06- L2 sec ;R 7 sec LTG Duration 05/18 Assessment Summary Assessment Pt has not made as much progress since last PN but has only been in 1 other time since then and was on vacation for some time which she did not do as much exercises during. She is makng excellent progress and imprvoing in functional ability at this time. She is now able to walk on trails and beaches and has inc her walking distance. She would benefit from cont PT to work on improving her balance and cont to fully restore her ROM and ankle strength. Focus was on exercises to progress this. Physical Therapy Plan Frequency and Duration Frequency of Treatment 1x/Week Duration of treatment (weeks) 6 Plan of Care Start Date 04/06/23 Plan of Care End Date 05/18/23 Therapeutic Interventions Therapeutic Interventions Aquatic Therapy,Balance Training,Gait Training,Home Exercise Program,Joint Mobilizations,Manual Therapy, Neuromuscular Re-education, Orthotic/Prosthetic Management ,Patient/Caregiver Education, Self-Care/Home Management,Soft Tissue Mobilization,Taping, Therapeutic Activities, Therapeutic Exercises Modalities Cold Pack/Ice Massage,Electric Stimulation,Hot Packs, Infrared Therapy,Iontophoresis ,Traction- Mechanical, Ultrasound Next Visit Focus/Plan Next Note Type Treatment Note Next Visit Plan cont to work on improved gait mechanics and SLS ; manual to improve foot mobility; work on heel raises Plan of Care Dates Plan of Care Start Date 04/06/23 Plan of Care End Date 05/18/23 Electronically Signed by: Nani Sesay, PT 04/08/23 0901 If you are in agreement with this Plan of Care, please return a signed and dated copy. I have reviewed this Plan of Care and certify that the skilled therapy services above are required to meet the patient?s needs. Physician Signature Date Printed Name and Credentials Clinical Instructor Signature Printed Name and Credentials
--- NOTE | 2023-05-21 11:15 | PT.OPDS ---
Current Diagnoses Difficulty in walking, not elsewhere classified (04/06/23) Abnormal posture (04/06/23) Weakness (04/06/23) Other fracture of left lower leg, initial encounter for closed fracture (04/06/23) Other fracture of left lower leg, subsequent encounter for closed fracture with routine healing (04/06/23) Visit Care Team Role Provider Type Ady Dow, Family Provider Non-Staff Primary Care Provider Specialty: Medical Address: [address] [place] [address] [address], [place], [address] Email: Yudelka Charlton MD Attending Provider Physician Referring Provider Specialty: Orthopedics Orthopedic Surgery Address: [address] [place] [address], [id number] Email: [email or web address] Visit Number Visit Number 18 Discharge Summary PT-OP-B Current Condition Start: 11/24/22 17:53 Freq: Status: Active Protocol: Document 11/25/22 07:26 [facility] (Rec: 11/25/22 08:23 [facility] [id number]) Current Condition History of Current Condition Onset Date Sep 29 Current Complaints MIldly displaced lat malleolus fx History of Current Condition Pt broke her ankle when she was at her cabin in [place] and went for a walk after their long drive. The road was plowed and when she truned, she slipped and she thinks she went into signfiicant inversion. She couldn't get up so had to crawl .1 mile. She had on a trail boot which she thinks may habe made her break better. She has been frustrated because her recovery has been delayed.She had the boot on for 4 weeks. and now has a lace up and wrap ankle brace. She still has a lot of swelling. She has noticed that her L leg does not seem to function as she feels like it should. Her ankle has limited mobility and knee doesn't want to bend. She has been doing acupuncture for the past 4 weeks and that really helped. She saw another PT but decided to come here. She saw her for 3 weeks in Oct until the . Xrays 3 weeks ago and pt reports the MD was happy. Next Xray is next Thu. Pt is to wear the brace when on her feet. Last PT has her walking 15 min a day and she uses poles during the walk. Inside not using poles. Pt reports since wearing the boot her R hip has been givng her more trouble. Pt reports she does okay on stairs. She has been walkin gin her neighborhood and she has to go down a slope and that is tough to do. Treatment Goals Patient/Caregiver Goals Get back to hiking, walking, biking PT-OP-C Subjective Start: 11/24/22 17:53 Freq: Status: Active Protocol: Document 04/06/23 10:51 [facility] (Rec: 04/06/23 15:32 [facility] [id number]) OP-PT Subjective Patient Comments [place] She had to have her carry the chairs. Walking on the dune areas were difficult. Pt reports she was doing some knee exercsise from her book and she sometimes gets pain in B knees and hips. PT-OP-F Manual Assessment Start: 11/24/22 17:53 Freq: Status: Active Protocol: Document 11/25/22 07:26 [facility] (Rec: 11/25/22 08:23 [facility] [id number]) Manual Assessments Other Manual Assessments Other Manual Assessments significant swelling in L ankle and calf PT-OP-G Mobility & Gait Start: 11/24/22 17:53 Freq: Status: Active Protocol: Document 11/25/22 07:26 [facility] (Rec: 11/25/22 08:23 [facility] [id number]) OP Gait Assessment Comments Gait Comments Dec stance time on LLE and dec push off and some lat lean onto L w/ WB PT-OP-K Range of Motion Start: 11/24/22 17:53 Freq: Status: Active Protocol: Document 04/06/23 10:51 [facility] (Rec: 04/06/23 15:32 [facility] [id number]) Ankle and Foot Goniometric Range of Motion Ankle and Foot Left Active Dorsiflexion with Knee Flexed 8 Dorsiflexion with Knee Extended 6 Plantarflexion 40 Inversion 19 Eversion 17 PT-OP-M Strength Start: 11/24/22 17:53 Freq: Status: Active Protocol: Document 04/06/23 10:51 [facility] (Rec: 04/06/23 15:32 [facility] [id number]) Hip Strength Hip Manual Muscle Testing Right Flexion (L2) 5 Normal Extension (S1) 4- Good- Abduction 4 Good Adduction 5 Normal External Rotation 4 Good Internal Rotation 5 Normal Left Flexion (L2) 5 Normal Extension (S1) 4- Good- Abduction 4 Good Adduction 5 Normal External Rotation 4 Good Internal Rotation 4 Good Knee Strength Knee Manual Muscle Testing Right Flexion (S2) 5 Normal Extension (L3) 5 Normal Left Flexion (S2) 4+ Good+ Extension (L3) 5 Normal Ankle/Foot Strength Ankle and Foot Manual Muscle Testing Right Dorsiflexion (L4) 5 Normal Plantarflexion (S1) 5 Normal Inversion 5 Normal Eversion (S1) 5 Normal Comments 20 heel raises Left Dorsiflexion (L4) 5 Normal Plantarflexion (S1) 3- Fair- Inversion 4 Good Eversion (S1) 5 Normal Comments PF tested seated L as unable to do heel raise now PT-OP-T Assessment and Plan Start: 11/24/22 17:53 Freq: Status: Active Protocol: Document 05/21/23 11:13 [facility] (Rec: 05/21/23 11:15 [facility] [id number]) Physical Therapy Assessment Goals strength Short Term Goal (STG) Pt will be indep w/HEP STG Duration achieved advancing as able [facility] Goal (LTG) Pt will score at least 4+/5 on all MMT in order to improve stability of LE to improve ability to particpate in typical activities 01/12-improving 03/09-improved 7.18-some improvement LTG Duration 05/18 ROM Short Term Goal (STG) Pt will have DF of L anlke ot at least 0 to show improved motion. STG Duration achieved [facility] Goal (LTG) Pt will have full ROM of L ankle without inc pain in oreder to be able to inclines/ declines and stairs w/o pain 01/12-up has been ok. slow on down; ROM still limited 03/09-eversion limit only 04/06-mild limits; no issues w/ stairs/hills LTG Duration 05/18 activity Short Term Goal (STG) Pt will be able to resume 1 mile walks w/1 pole without inc pain greater than 2/10 STG Duration achieved [facility] Goal (LTG) Pt will be able to return to gardening, hiking without issues w/balance and without inc pain >1/10 01/12-1 mile walks and pt doing gardening w/soreness 03/09-1.5 mile walks, has done gardening, limited uneven terrain LTG Duration achieved 04/06 balance Signal Operator Linguist Goal (LTG) Pt will be able to do SLS B 10 sec to show good stability 01/12-L 1 sec; R 6 sec 03/09-2 sec L : R 7 sec 04/06- L2 sec ;R 7 sec LTG Duration 05/18 Assessment Summary Assessment Pt called to cancel her last visit as she wanted to follow up w/her primary first. She had made excellent progress w/ PT and had returned to ability to walk for longer distances and improved her strength and ROM greatly w/still some limitations. Pt did still have limited balance on LLE at last visit and does have HEP for strength, ROM and balance to cont. PT DC d/t no longer attending PT (POC 05/18) and pt has not been seen for over 1 month. Physical Therapy Plan Discharge Physical Therapy Discharge Reasons No Longer Attending PT
== END 2023-05-26 15:04 | disposition home or self-care (01) ==
LOC: PHYS 10:45
PROVIDERS: Family Provider Student in an Organized Health Care Education/Training Program; PCP Student in an Organized Health Care Education/Training Program; Referring Provider Orthopaedic Surgery Foot and Ankle Surgery; Visit Provider Orthopaedic Surgery Foot and Ankle Surgery
DX: S82.892D Other fracture of left lower leg, subsequent encounter for closed fracture with routine healing; R53.1 Weakness; R29.3 Abnormal posture; R26.2 Difficulty in walking, not elsewhere classified
CPT/HCPCS: 97110; 97112; 97116; 97140; 97162; 97535; 97750

== ENCOUNTER → 2023-06-17 10:23 | Outpatient (CLI) | payer MEDICARE, SELFPAY ==
--- NOTE | 2023-06-17 10:24 | DI.RAD.S_ITS ---
Bone Density Report Name: RICCO OCHOA Age: 72 Sex: Female Ethnicity: White Date of : 1950 Indication: osteopenia; Referring Provider: VERÓNICA EUGENE Study: Bone densitometry was performed. Exam Date: June 17, 2023 Accession number: [id number] Bone Density: Region BMD T-score Z-score Classification AP Spine(L1-L4) 0.801 -2.2 0.1 Osteopenia Femoral Neck (Left) 0.650 -1.8 0.2 Osteopenia Total Hip (Left) 0.778 -1.3 0.4 Osteopenia Femoral Neck (Right) 0.687 -1.5 0.6 Osteopenia Total Hip (Right) 0.834 -0.9 0.8 Normal Total Hip Mean 0.806 -1.1 0.6 Osteopenia World Health Organization criteria for BMD impression classify patients as: Normal (T-score at or above -1.0), Osteopenia (T-score between -1.0 and -2.5), or Osteoporosis (T-score at or below -2.5). 10-year Fracture Risk(1): Major Osteoporotic Fracture 12% Hip Fracture 2.4% Reported Risk Factors: [place] (), Neck BMD=0.650, BMI=27.6 (1) FRAX(R) Version 3.08. Fracture probability calculated for an untreated patient. Fracture probability may be lower if the patient has received treatment. Previous Exams: -- Region Exam Age BMD T-score BMD Change BMD Change Date g/cm2 vs Baseline vs Previous -- AP Spine (L1-L4) 06/17/2023 72 0.801 -2.2 -0.157 (-16.4%)# -0.157 (-16.4%)# 03/16/2014 63 0.958 -0.8 Total Hip(Left) 06/17/2023 72 0.778 -1.3 -0.033 (-4.1%)# -0.033 (-4.1%)# 03/16/2014 63 0.811 -1.1 Total Hip(Right) 06/17/2023 72 0.834 -0.9 -0.050 (-5.7%)# -0.050 (-5.7%)# 03/16/2014 63 0.884 -0.5 -- *Denotes significance at 95% confidence level, LSC for AP Spine = 0.022 g/cm2, LSC for Total Hip = 0.027 g/cm2 # Denotes dissimilar scan types or analysis methods Impression: The patient has low bone mass, based on the Total Spine T-score. The patient has an estimated ten-year risk of hip fracture of 2.4% and an estimated ten-year risk of major fracture of 12%, based on the WHO FRAX algorithm. No significant bone loss was observed. Discussion: BONE DENSITY IS LOW AT ONE OR MORE SKELETAL SITES. This patient's lowest T-score is low at one or more skeletal sites. It meets the World Health Organization's (WHO) criteria for low bone mass (T-score between -1.0 and -2.5). The patient's 10-year risk of fracture as calculated by FRAX is less than the threshold where pharmacological therapy is recommended by the National Osteoporosis Foundation (NOF). However, all treatment decisions require clinical judgment and consideration of individual patient factors, including patient preferences, comorbidities, previous drug use, risk factors not captured in the FRAX model (e.g., frailty, falls, vitamin D deficiency, increased bone turnover, interval significant decline in bone density) and possible under or overestimation of fracture risk by FRAX. The patient should follow a healthful lifestyle (good nutrition with adequate calcium and vitamin D, and appropriate weight-bearing exercise). Follow-Up: Consider repeating this study in 2 to 3 years to reassess this patient's status, or sooner if there is some new clinical indication. Reported by: ROSA ISELA SUÁREZ M.D. on 06/19/2023 9:16:00 AM.
--- NOTE | 2023-06-17 10:25 | DI.MG.S_ITS ---
BILATERAL DIGITAL SCREENING MAMMOGRAM 3D/2D WITH CAD: 06/17/2023 CLINICAL: Routine screening. Comparison is made to exams dated: 10/19/2020 mammogram, 06/29/2018 mammogram, and 07/09/2016 mammogram - [facility]. There are scattered areas of fibroglandular density in both breasts (category b / 25%-50% glandular tissue). Current study was also evaluated with a Computer Aided Detection (CAD) system. There is a new oval focal asymmetry with a circumscribed margin in the left breast at 6 o'clock anterior depth. No other significant masses, calcifications, or other findings are seen in either breast. IMPRESSION: INCOMPLETE: NEEDS ADDITIONAL IMAGING EVALUATION The new oval focal asymmetry in the left breast resembles a cyst and is indeterminate. Additional views with possible ultrasound are recommended. Based on the Tyrer Cuzick model (a risk assessment model) the patient's lifetime risk is 3.1% and her 10 year risk is 2.5%. According to the ACR, ACS, and NCCN guidelines, an annual breast MRI exam along with mammogram is recommended if the patient's lifetime risk is 20% or greater. This exam was interpreted at Station ID: [id number]. NOTE: For mammograms, a report in lay terms will be sent to the patient. Approximately 15% of breast malignancies will not be visualized mammographically. In the management of a palpable breast mass, a negative mammogram must not discourage biopsy of a clinically suspicious lesion. Electronically Signed By: Spike wallace/nino:06/17/2023 14:34:55 letter sent: Additional Imaging Needed ACR BI-RADS Category 0: Incomplete 3340F
== END ==
PROVIDERS: Family Provider Student in an Organized Health Care Education/Training Program; PCP Internal Medicine; Referring Provider Internal Medicine; Visit Provider Internal Medicine
DX: M85.88 Other specified disorders of bone density and structure, other site (principal); Z12.31 Encounter for screening mammogram for malignant neoplasm of breast; Z78.0 Asymptomatic menopausal state; E78.2 Mixed hyperlipidemia; E55.9 Vitamin D deficiency, unspecified; R03.0 Elevated blood-pressure reading, without diagnosis of hypertension; Z90.710 Acquired absence of both cervix and uterus
CPT/HCPCS: 77063; 77067; 77080

== ENCOUNTER → 2023-06-30 09:31 | Outpatient (CLI) | payer MEDICARE, SELFPAY ==
--- NOTE | 2023-06-30 | DI.MG.S_ITS ---
UNILATERAL LEFT DIGITAL DIAGNOSTIC MAMMOGRAM 3D/2D WITH ADDITIONAL VIEWS: 06/30/2023 CLINICAL: Additional evaluation requested from prior study. Comparison is made to exams dated: 06/17/2023 mammogram, 10/19/2020 mammogram, 06/29/2018 mammogram, and 07/17/2016 mammogram - [facility]. There are scattered areas of fibroglandular density in the left breast (category b / 25%-50% glandular tissue). There is a new oval focal asymmetry with a circumscribed margin in the left breast at 6 o'clock anterior depth. No other significant masses or calcifications are seen in the breast. IMPRESSION: INCOMPLETE: NEEDS ADDITIONAL IMAGING EVALUATION The new oval focal asymmetry in the left breast is indeterminate. A targeted ultrasound is recommended and will immediately follow. Based on the Tyrer Cuzick model (a risk assessment model) the patient's lifetime risk is 3.1% and her 10 year risk is 2.5%. According to the ACR, ACS, and NCCN guidelines, an annual breast MRI exam along with mammogram is recommended if the patient's lifetime risk is 20% or greater. This exam was interpreted at Station ID: [id number]. NOTE: For mammograms, a report in lay terms will be sent to the patient. Approximately 15% of breast malignancies will not be visualized mammographically. In the management of a palpable breast mass, a negative mammogram must not discourage biopsy of a clinically suspicious lesion. Electronically Signed By: Saul Mendez M.D. slc/:06/30/2023 09:58:30 ACR BI-RADS Category 0: Incomplete 3340F
--- NOTE | 2023-06-30 09:32 | DI.US.S_ITS ---
LIMITED ULTRASOUND OF LEFT BREAST AND AXILLA: 06/30/2023 CLINICAL: Patient returns today to evaluate a focal asymmetry in the left breast. Comparison is made to exams dated: 06/30/2023 mammogram, 06/17/2023 mammogram, 10/19/2020 mammogram, and 06/29/2018 mammogram - [facility]. Color flow and real-time ultrasound of the left breast axilla were performed. Ny scale images of the real-time examination were reviewed. There is a benign 1 cm x 0.6 cm x 0.6 cm cluster of oval simple cysts in the left breast at 6 o'clock anterior depth 1 cm from the nipple. This cluster of oval simple cysts is anechoic. This correlates with mammography findings. Color flow imaging demonstrates that there is no vascularity present. No significant abnormalities were seen sonographically in the left axilla. IMPRESSION: BENIGN There is no sonographic evidence of malignancy. The 1 cm cluster of oval simple cysts in the left breast is benign. A 1 year screening mammogram is recommended. Exam findings were conveyed to the patient. This exam was interpreted at Station ID: [id number]. Electronically Signed By: Saul Mendez M.D. slc/:06/30/2023 11:02:23 letter sent: Normal Exam Ultrasound BI-RADS: 2 Benign
== END ==
LOC: MAMMO 09:32
PROVIDERS: Family Provider Student in an Organized Health Care Education/Training Program; PCP Internal Medicine; Referring Provider Internal Medicine; Visit Provider Internal Medicine
DX: R92.8 Other abnormal and inconclusive findings on diagnostic imaging of breast (principal); N60.02 Solitary cyst of left breast; N64.89 Other specified disorders of breast
CPT/HCPCS: 76642; 77065; G0279

== ENCOUNTER → 2023-08-05 08:37 | Outpatient (CLI) | payer MEDICARE, SELFPAY ==
[2023-08-05 10:15] LABS: Hematocrit 42.5 % (36-46); Hemoglobin 14.4 g/dL (12.0-16.0); Mean Corpuscular Volume 88.1 fL (80-100); Platelet Count 211 X10^3/uL (150-400); Red Blood Cell Count 4.82 X10^6/uL (4.0-5.2); Red Cell Distribution Width 13.1 % (11.6-14.8); White Blood Cell Count 4.6 X10^3/uL (4.5-11.0)
[2023-08-05 10:40] LABS: Alanine Aminotransferase 17 IU/L (<35); Albumin 4.1 g/dL (3.5-5.0); Albumin Globulin Ratio 1.6 (1.0-2.8); Alkaline Phosphatase 77 U/L (38-126); Aspartate Aminotransferase 22 IU/L (14-36); BUN Creatinine Ratio 20.3 (6-22); Bilirubin Total 0.8 mg/dL (0.2-1.3); Blood Urea Nitrogen 15 mg/dL (7-17); Calcium 9.8 mg/dL (8.4-10.2); Carbon Dioxide 26 mmol/L (22-32); Chloride 101 mmol/L (98-107); Cholesterol 217 mg/dL (140-199); Estimated Glomerular Filt Rate > 60 mL/min (>60); Globulin 2.6 g/dL (1.7-4.1); Glucose 94 mg/dL (80-110); HDL Cholesterol 66 mg/dL (40-60); HEMOLYSIS < 15 (0-50); LDL Cholesterol Calculated 135 mg/dL (<100); Potassium 4.3 mmol/L (3.4-5.1); Sodium 135 mmol/L (137-145); Total Protein 6.7 g/dL (6.3-8.2); Triglycerides 78 mg/dL (35-150)
[2023-08-05 10:50] LABS: Vitamin D 25 Hydroxy (D3) 39.9 ng/mL (30.0-100.0)
[2023-08-05 11:02] LABS: TSH w/ Reflex to FT4 2.14 uIU/mL (0.47-4.68)
[2023-08-05 11:24] LABS: Vitamin B12 934 pg/mL (239-931)
== END ==
PROVIDERS: Family Provider Student in an Organized Health Care Education/Training Program; PCP Internal Medicine; Referring Provider Internal Medicine; Visit Provider Internal Medicine
DX: E78.2 Mixed hyperlipidemia (principal); E55.9 Vitamin D deficiency, unspecified; R03.0 Elevated blood-pressure reading, without diagnosis of hypertension; E53.8 Deficiency of other specified B group vitamins
CPT/HCPCS: 36415; 80053; 80061; 82306; 82607; 84443; 85027

== ENCOUNTER → 2025-08-04 07:58 | Outpatient (CLI) | payer MEDICARE, SELFPAY ==
[2025-08-04 08:44] LABS: Hemoglobin A1C% w Est Avg Glu 5.3 % (4.0-6.0)
[2025-08-04 09:00] LABS: Blood Urea Nitrogen 16 mg/dL (7-17); Calcium 9.2 mg/dL (8.4-10.2); Carbon Dioxide 26 mmol/L (22-32); Chloride 103 mmol/L (98-107); Cholesterol 235 mg/dL (140-199); Estimated Glomerular Filt Rate > 60 mL/min (>60); Glucose 95 mg/dL (70-99); HDL Cholesterol 80 mg/dL (40-60); Potassium 4.5 mmol/L (3.4-5.1); Sodium 137 mmol/L (137-145); Triglycerides 83 mg/dL (35-150)
[2025-08-04 09:03] LABS: HEMOLYSIS 77 (0-50)
[2025-08-04 09:48] LABS: Vitamin B12 272 pg/mL (239-931)
== END ==
PROVIDERS: PCP Internal Medicine; Referring Provider Internal Medicine; Visit Provider Internal Medicine
DX: R73.01 Impaired fasting glucose (principal); E78.2 Mixed hyperlipidemia; R03.0 Elevated blood-pressure reading, without diagnosis of hypertension; E53.8 Deficiency of other specified B group vitamins
CPT/HCPCS: 36415; 80048; 80061; 82607; 83036; 84450

== ENCOUNTER → 2025-08-12 09:43 | Outpatient (CLI) | payer MEDICARE, SELFPAY ==
--- NOTE | 2025-08-12 09:44 | DI.MG.S_ITS ---
MM screening mammo BI: 08/12/2025. BI-RADS: 2 CLINICAL: 74-year old female for bilateral screening mammogram. Tyrer-Cuzick lifetime risk of 1.9%. No personal or first-degree family history of breast cancer. PRIOR EXAMS 06/30/2023, 06/17/2023, 10/19/2020, 06/29/2018, MAMMOGRAPHY TECHNIQUE: 2D and 3D (tomosynthesis) digital mammographic views obtained, with additional images as needed for full coverage. Current study was also evaluated with a Computer Aided Detection (CAD) system. DENSITY B. There are scattered areas of fibroglandular density. MAMMOGRAPHY FINDINGS Bilateral: Benign-appearing calcifications noted. There are no suspicious masses, calcifications, or other findings in the breast. IMPRESSION: * No evidence of malignancy with benign findings. RECOMMENDATIONS Bilateral * Annual screening mammography. OVERALL ASSESSMENT CATEGORY BI-RADS-2: Benign. The [employer] [place] [employer] recommends annual screening mammography beginning at age 40 for women with average risk of breast cancer. ELECTRONICALLY SIGNED: Wing Acosta M.D. on 08/16/2025 at 09:52:44 AM PT Interpreting Station ID: [id number]
== END ==
LOC: MAMMO 09:43
PROVIDERS: PCP Internal Medicine; Referring Provider Internal Medicine; Visit Provider Internal Medicine
DX: Z12.31 Encounter for screening mammogram for malignant neoplasm of breast (principal); R92.1 Mammographic calcification found on diagnostic imaging of breast
CPT/HCPCS: 77063; 77067